=== PATIENT | male | born 1960 | race Caucasian/White ===

== ENCOUNTER 2020-05-11 18:07 | Inpatient (IN) | payer OTHER, SELFPAY ==
--- NOTE | 2020-05-11 18:09 | CT_ITS ---
We are attempting to reach an attending provider to discuss findings. An addendum with communication details will be sent when the communication is complete. STUDY: CT HEAD STROKE PROTOCOL W/O CONTRAST INJECTION REASON FOR EXAM: Male, 59 years old. Neuro deficit, acute, stroke suspected TECHNIQUE: Transaxial CT imaging of the brain was performed without administration of intravenous contrast material. Individualized dose optimization techniques were used for this CT. COMPARISON: No relevant priors. FINDINGS: Normal soft tissue structures. Normal calvarium. Normal size ventricles and extra-axial spaces for the patient''s age. Normal white matter tracts of the cerebral hemispheres. Normal basal ganglia and thalami. Normal brainstem. Normal cerebellum. There is no intracranial hemorrhage. There are no findings of an acute ischemic infarction. Mucosal thickening in the inferior frontal sinuses and anterior ethmoid sinuses. Mucosal thickening and retained fluid in the right maxillary sinus. Opacified left mastoid air cells, mastoid antrum and middle ear. CT/STROKE Brain/Head without Cont IMPRESSION: Negative for hemorrhage, hematoma or extra-axial fluid collection. Negative for demarcation of a major new nonhemorrhagic infarct zone or mass density. Incidental sinus and mastoid findings as described above. Electronically Signed: Shruthi Granger MD at 18:35 EST , Service support ,
--- NOTE | 2020-05-11 18:09 | EKG12_ITS ---
Test Reason : Blood Pressure : / mmHG Vent. Rate : 128 BPM Atrial Rate : 128 BPM P-R Int : 146 ms QRS Dur : 088 ms QT Int : 312 ms P-R-T Axes : 038 -22 026 degrees QTc Int : 455 ms Sinus tachycardia Possible Left atrial enlargement Poor R wave progression Borderline ECG Confirmed by ELVIA LARA, URIEL ([id number]), production editor JARROD JIANG ([id number]) on 05/16/2020 2:31:44 PM Referred By: ANCELMO Confirmed By:URIEL GAN MD
[2020-05-11 18:11] VITALS: BP 193/111; PULSE 130; RESP 27; TEMP 39.8; O2SAT 94; BMI 25.7
[2020-05-11 18:16] VITALS: BP 158/94; PULSE 129; RESP 26; TEMP 39.8; O2SAT 93; O2SAT 94
[2020-05-11 18:31] LABS: Absolute Lymphocyte Count 1.01 X10^3/uL (0.83-4.51); Absolute Neutrophil Count 22.3 X10^3/uL (2.0-7.7); Basophil# 0.07 X10^3/uL; Basophil% 0.3 % (0-1); Hematocrit 46.1 % (40-54); Hemoglobin 15.4 g/dL (13.0-16.5); Lymphocyte # 1.01 X10^3/ul (4.0); Lymphocyte % 4.1 % (19-41); Mean Corp Hgb Conc 33.4 g/dL (32-36); Mean Corpuscular Hgb 31.3 pg (27.0-32.0); Mean Corpuscular Volume 93.7 fL (80-94); Monocyte# 1.25 X10^3/uL; NRBC Flagged by Analyzer 0 % (0-5); Neutrophil # 22.33 X10^3/uL (2.7-7.7); Neutrophil % 89.6 % (47-70); POSITIVE DIFFERENTIAL YES; Platelet Count 300 K/mm3 (150-450); RBC Distribution Width CV 12.6 % (11.6-14.6); RBC Distribution Width SD 43.6 fl (35.1-43.9); Red Blood Count 4.92 M/mm3 (4.6-6.2); White Blood Count 24.9 K/mm3 (4.4-11.0)
[2020-05-11] MEDS: 0.9% Normal Saline 1,000 ML 999 ML IV ×3 (18:33→21:25)
--- NOTE | 2020-05-11 18:39 | CT_ITS ---
STUDY: CTA HEAD AND NECK WITH CONTRAST REASON FOR EXAM: Male, 59 years old. Altered mental status RADIATION DOSAGE (If Supplied By Facility): CTDIvol = ( 28.03 ) mGy, DLP = ( 757.07 ) mGycm TECHNIQUE: CT angiography was performed with a multi-detector CT scanner. Data acquisition was obtained from the skull base through the vertex following intravenous administration of IV 100mL Isovue-370. MIP images were reconstructed from the axial data set. Post-processing of the angiographic images was performed, with multiplanar reformation and 3D reconstruction. Individualized dose optimization techniques were used for this CT. COMPARISON: 07/08/2014 FINDINGS: Normal bilateral petrous carotid arteries. Normal right cavernous carotid artery with a normal supraclinoid bifurcation. Normal left cavernous carotid artery with a normal supraclinoid bifurcation. Normal right A1 segments of the anterior cerebral artery. Normal left A1 segments of the anterior cerebral artery. Normal intact anterior communicating artery (ACOM). Normal bilateral A2 segments of the anterior cerebral arteries. Normal right M1 and M2 segments of the middle cerebral arteries, with a normal M1 bifurcation. Normal left M1 and M2 segments of the middle cerebral arteries, with a normal M1 bifurcation. Normal right posterior communicating artery (PCOM). Normal left posterior communicating artery (PCOM). Normal bilateral vertebral arteries. Normal basilar artery with a normal basilar bifurcation. The visualized bilateral superior cerebellar (SCA) arteries are normal. Normal bilateral P1, P2 and visualized P3 segments of the posterior cerebral arteries. There is no demonstrated aneurysm of the [place] of [place]. There is no demonstrated abnormality of the visualized brain. AORTIC ARCH: Normal visualized aortic arch. Normal origins of the brachiocephalic, left common carotid, and left subclavian arteries. RIGHT CAROTID ARTERIES: Normal right common carotid artery (CCA). There is mild atherosclerotic plaque formation with minimal narrowing of the right carotid bulb. Normal origin of the right internal carotid (ICA) artery without a hemodynamically significant stenosis. Normal visualized cervical portion of the right internal carotid artery. Normal origin of the right external carotid artery (ECA). LEFT CAROTID ARTERIES: Normal left common carotid artery (CCA). Normal left common carotid bulb. Normal origin of the left internal carotid (ICA) artery without a hemodynamically significant stenosis. Normal visualized cervical portion of the left internal carotid artery. Normal origin of the left external carotid artery (ECA). VERTEBRAL ARTERIES: Normal bilateral vertebral arteries. CT/STROKE CTA Head AND Neck W/Con IMPRESSION: Minimal atherosclerosis of the right internal carotid artery otherwise within normal limits CTA Head and neck with contrast. N.B. : The above information has been verbally conveyed by Renae Farfan MD to Mely Fleming MD, on 05/11/2020 19:50:57 (ET). Electronically Signed: Renae Farfan MD at 19:53 EST Tel , Service support ,
[2020-05-11] MEDS: Acetaminophen 650 MG Suppository RECTAL (18:40)
[2020-05-11 18:41] LABS: International Normalized Ratio 1.2; Prothrombin Time (Protime)PT. 14.7 SECONDS (11.7-14.9)
[2020-05-11 18:42] LABS: Partial Thromboplast Time 26.1 Seconds (24.1-36.2)
[2020-05-11 18:43] LABS: Differential Indicated SCAN CRITERIA MET
[2020-05-11 18:50] LABS: Anion Gap 7 (5-15); BUN 11 mg/dL (7-18); BUN/Creat Ratio 11.8 RATIO (10-20); Calcium,Total 8.9 mg/dL (8.5-10.1); Chloride 104 mmol/L (98-107); Creatinine, Serum 0.93 mg/dL (0.70-1.30); EST Glomerular Filtration Rate 87 mL/min (>60); Est Glom Filt Rate - Afr Amer 106 mL/min (>60); Estimated Creatinine Clearance 91.55 ml/min; Glucose 106 mg/dL (74-106); Potassium 3.3 mmol/L (3.5-5.1); Sodium Level 136 mmol/L (136-145)
[2020-05-11 19:03] LABS: Differential Comment SCANNED
[2020-05-11 19:14] LABS: Bacteria 0 SEEN /hpf (None Seen); Mucous, Urine 0 SEEN /hpf (<or=2+); Squamous Epithelial Cells - UA 0 SEEN /hpf (0-5)
[2020-05-11 19:17] VITALS: BP 145/94; PULSE 116; RESP 25; TEMP 39.8; O2SAT 94
[2020-05-11 19:21] LABS: Color, Urine Yellow (Yellow); Glucose, Dipstick Normal (Normal); Ketone-Dipstick 50 mg/dl (Negative); Leukocyte Esterase-Dipstick Negative /ul (Negative); Nitrite-Dipstick Negative (Negative); Occult Blood-Urine 50 /ul (Negative); Protein-Dipstick 15 mg/dl (Negative); Urine Bilirubin Dipstick Negative (Negative); Urine Clarity Clear (Clear); Urine Urobilinogen 4 mg/dl (Normal)
--- NOTE | 2020-05-11 19:25 | RAD_ITS ---
STUDY: X-RAY CHEST REASON FOR EXAM: Male, 59 years old. Neuro deficit, acute, stroke suspected TECHNIQUE: 1 view COMPARISON: Prior chest radiograph of 07/08/2014 FINDINGS: Limited inspiration with minimal atelectasis at the right lung base. Otherwise negative for new consolidation or other infiltrates. Normal size heart. Normal mediastinum and brisa. Normal visualized pulmonary arteries. Normal visualized aortic arch and descending thoracic aorta. Normal visualized thoracic spine. Normal visualized ribs, clavicles, and shoulders. There is no demonstrated abnormality of the visualized soft tissue structures of the upper abdomen. RAD/Chest 1 View IMPRESSION: Limited inspiration. Mild atelectasis at the right lung base. Electronically Signed: Shruthi Granger MD at 20:18 EST , Service support ,
[2020-05-11 19:31] LABS: Lactic Acid 1.5 mmol/L (0.4-1.9)
[2020-05-11 19:35] LABS: Amphetamine Urine VISTA NEGATIVE (<1000 ng/mL); Barbiturate Urine VISTA NEGATIVE (< 200 ng/mL); Benzodiazepine Urine VISTA NEGATIVE (< 200 ng/mL); Cocaine Urine VISTA NEGATIVE (< 300 ng/mL); Ecstacy Urine VISTA NEGATIVE (< 500 ng/mL); Methadone Urine VISTA NEGATIVE (< 300 ng/mL); PCP Urine VISTA NEGATIVE (< 25 ng/mL); THC Urine VISTA NEGATIVE (< 50 ng/mL); Vista UDS pH Range 7
[2020-05-11 19:41] LABS: Red Blood Cells-Urine 5-10 SEEN /hpf (0-5); White Blood Cells 0-5 SEEN /hpf (0-5)
[2020-05-11 20:09] VITALS: BP 167/95; PULSE 121; RESP 26; TEMP 39.6; O2SAT 93
[2020-05-11] MEDS: fentaNYL 100 MCG/2 ML Ampul 50 MCG IV (21:04)
[2020-05-11 21:08] VITALS: BP 137/79; PULSE 109; RESP 24; TEMP 39.3; O2SAT 94
[2020-05-11 22:08] VITALS: BP 143/76; PULSE 89; RESP 26; TEMP 39.2; O2SAT 94
--- NOTE | 2020-05-11 22:31 | PCM.HP.STD ---
Problem List (1) Infectious encephalopathy Status: Acute (2) Hyperlipidemia Status: Chronic (3) Hypertension Status: Chronic (4) Mastoiditis Status: Acute History of Present Illness Date of Admission: 05/11/20 Chief Complaint: altered mental status The patient is a 59 year old M with a significant history of hypertension and alcoholism who was brought to the emergency department because of altered mental status. Reportedly patient was somnolent. Reportedly he was given Narcan by paramedics without any significant improvement. Patient's significant other alleged that patient reported to her a day ago that his left ear has been draining. Associated with his symptoms is fever and chills. On the same day of presentation patient went to the court and was seeking custody of his great grandchild. However the judgment was not in his favor. Prehospitalization stroke was considered. Emergent department doctor consulted telemetry neurologist and recommendations were made. History was taken for significant other who was at the bedside. Also, patient daughter was called to clarify CODE STATUS. Past Medical History Past Medical History (Chronic Problems): Chronic Problems Hyperlipidemia (Chronic) Hypertension (Chronic) Allergies No Known Allergies Allergy (Verified 11/26/14 19:01) Home Medications: Ambulatory Orders Medication Instructions Recorded Lisinopril [Zestril] 40 mg PO DAILY 07/09/14 Surgical History: appendectomy Smoking Status: Former smoker Alcohol: Heavy - *Family History Maternal History Items: Cancer Paternal History Items: Cancer Review of Systems Unable to obtain accurate/complete ROS d/t: Encephalopathy. ROS obtained from significant other is as in HPI VTE Information - Inpt Only VTE Present on Admission: No VTE Mechan Device Prophylaxis: SCD's VTE Pharm Prophylaxis ordered?: No Patient Problems: Active and Suspected Problems Infectious encephalopathy (Acute) Mastoiditis (Acute) - Physical Exam Vitals/I&O's: Vital Signs Temp Pulse Resp BP Pulse Ox 102.6 F H 89 26 H 143/76 H 94 05/11/20 22:08 05/11/20 22:08 05/11/20 22:08 05/11/20 22:08 05/11/20 22:08 Oxygen Delivery Method Room Air Weight: 86 kg Body Mass Index (BMI) 25.7 Finger Stick Blood Glucose 98 Intake and Output for Last 24 Hours 05/09/20 05/10/20 05/11/20 23:59 23:59 23:59 Intake Total 2049 Balance 2049 General: - - Obtunded HEENT: Atraumatic, - - Does not open eyes wide enough for examination. Sleeping on left side of head and difficult to examine left ear. Screaming on examination of left ear Neck: No Nodes, Trachea Midline Lungs: Clear to auscultation, Normal air movement Cardiovascular: Normal S1, Normal S2, Tachycardic Abdomen: Bowel Sounds Present, Soft, Non Tender Extremities: No edema, Capillary Refill Less than 3 Seconds Skin: No rashes Musculoskeletal: No Tenderness to Palpation of Joints or Extremities Neurological: - - Obtunded; does not follow commands moving. Psych/Mental Status: - - Obtunded Microbiology Past 72 Hours 05/11/20 19:15 Stool Stool Occult Blood (JILLIAN) - Final 05/11/20 18:40 Mucosa - Nasopharyngeal SARS-CoV-2 Antigen (Rapid) - Final Laboratory Results 05/11/20 18:05: Lactic Acid 1.5 05/11/20 18:15: WBC 24.9 H, RBC 4.92, Hgb 15.4, Hct 46.1, MCV 93.7, MCH 31.3, MCHC 33.4, RDW Std Deviation 43.6, RDW Coeff of Esteban 12.6, Plt Count 300, MPV 9.0, Immature Gran % (Auto) 1.000 H, Neut % (Auto) 89.6 H, Lymph % (Auto) 4.1 L, Banner % (Auto) 5.0, Eos % (Auto) 0.0, Baso % (Auto) 0.3, Absolute Neuts (auto) 22.3 H, Absolute Lymphs (auto) 1.01, Nucleated RBC % 0, Differential Comment SCANNED 05/11/20 18:15: PT 14.7, INR 1.2, APTT 26.1 05/11/20 18:15: Sodium 136, Potassium 3.3 L, Chloride 104, Carbon Dioxide 25.0, Anion Gap 7, BUN 11, Creatinine 0.93, Estim Creat Clear Calc 91.55, Est GFR (MDRD) Af Amer 106, Est GFR (MDRD) Non-Af 87, BUN/Creatinine Ratio 11.8, Glucose 106, Calcium 8.9, Troponin I < 0.015 05/11/20 18:15: Ethyl Alcohol 7.0 05/11/20 18:15: Total Bilirubin Pending, Direct Bilirubin Pending, AST Pending, ALT Pending, Alkaline Phosphatase Pending, Total Protein Pending, Albumin Pending 05/11/20 19:00: Urine Opiates Screen NEGATIVE, Urine Methadone Screen NEGATIVE, Ur Barbiturates Screen NEGATIVE, Ur Phencyclidine Scrn NEGATIVE, Ur Amphetamines Screen NEGATIVE, U Methamphetamin-MDMA NEGATIVE, U Benzodiazepines Scrn NEGATIVE, Urine Cocaine Screen NEGATIVE, U Cannabinoids Screen NEGATIVE, Ur Drug Screen Comment 05/11/20 19:00: Urine Color Yellow, Urine Clarity Clear, Urine pH 7.0, Ur Specific [place] 1.010, Urine Protein 15 H, Urine Glucose (UA) Normal, Urine Ketones 50 H, Urine Occult Blood 50 H, Urine Nitrite Negative, Urine Bilirubin Negative, Urine Urobilinogen 4 H, Ur Leukocyte Esterase Negative, Urine RBC 5-10 SEEN, Urine WBC 0-5 SEEN, Ur Squamous Epith Cells 0 SEEN, Urine Bacteria 0 SEEN, Urine Mucus 0 SEEN Current Medications Vancomycin HCl 2,000 mg/ (Sodium Chloride) 540 mls @ 250 mls/hr IV X1 ONE Stop: 05/11/20 22:39 Last Admin: 05/11/20 22:08 Dose: 250 mls/hr Documented by: Vancomycin IV Pharmacy to Dose (1 ea/ Sodium Chloride) 500 mls @ 250 mls/hr IV X1 PRN; Protocol PRN Reason: Rx to Dose Ceftriaxone Sodium 2 gm/ (Sodium Chloride) 50 mls @ 100 mls/hr IV Q12 OMAR Acyclovir Sodium 775 mg/ (Dextrose) 265.5 mls @ 265.5 mls/hr IV Q8 OMAR Labetalol HCl (Labetalol 100 Mg/20 Ml Vial) 10 mg IV Q6 PRN PRN Reason: SBP > 160; OR DBP > 120 Methylprednisolone (Methylprednisolone 40 Mg/Ml Vial) 40 mg IV DAILY [facility] Assessment/Plan All Active Problems Infectious encephalopathy (Acute) Mastoiditis (Acute) The patient is a 59 year old M with a significant history of hypertension and alcoholism who was brought to the emergency department because of altered mental status; fever; chills; and with draining of his left ear. Sepsis secondary to infectious encephalopathy Brain CT findings of mucosal thickening in the inferior frontal sinuses and anterior ethmoid sinuses. Mucosal thickening retained fluid in the right maxillary sinuses. Opacified left mastoid air cells, mastoid antrum and body ear. Head and neck CT was unrevealing for encephalitis. Check MRI Because patient required 6 people before a Rutledge catheter could be placed; emergent department doctor was unable to attempt a lumbar [uncture as patient became agitated Patient was started on vancomycin and trazodone at emergency department. Discussed emergent department doctor to start patient on acyclovir. Vancomycin and ceftriaxone as well as acyclovir ordered for inpatient. Solu-Medrol ordered. Check ammonia level. Will admit patient to intensive care unit and will consult upholstery handler and infectious disease expert. Acute mastoiditis Brain CT as above. Patient's was agitated and would not allow her left ear to be examined. Limited examination showed absolute on speculum. Aside vancomycin and ceftriaxone would add Levaquin for Pseudomonas coverage. Alcoholism Patient's girlfriend who was at bedside said patient is a heavy drinker but has been try to cut down. We will start patient on thiamine and folic acid. If patient becomes more alert consider Ativan for CIWA protocol. Hematemesis Nurse at emergent department reported a copious hematemesis that has since stopped. Discussed emergent department doctor to get a liver function test. Concern about variceal bleed in the setting of alcoholism. CMP in the a.m. ordered. Protonix 40 mg IV twice daily ordered. Abnormal abdomen and pelvis CT CT with moderate right sided renal cyst with benign features. Also complex right parapelvic cyst measuring 3.3 x 2 cm versus renal artery aneurysm in the right renal helium. Ultrasound was recommended. Consider further imaging when patient is more stable. DVT prophylaxis No chemical chemoprophylaxis because of hematemesis. SCD ordered Inpatient E&M: 73529 Init Hosp L3
[2020-05-11 22:48] LABS: AST(SGOT) 16 U/L (15-37); Alanine Aminotransfer ALT/SGPT 17 U/L (16-61); Albumin, Serum 3.7 g/dL (3.2-5.0); Alkaline Phosphatase 99 U/L (45-117); Bilirubin, Direct 0.21 mg/dL (0.00-0.30); Globulin 4.6 g/dL (2.2-4.2); Protein, Total 8.3 g/dL (6.4-8.2)
--- NOTE | 2020-05-11 23:24 | CT_ITS ---
STUDY: CT ABDOMEN AND PELVIS WITHOUT CONTRAST REASON FOR EXAM: Male, 59 years old. Fever RADIATION DOSAGE (If Supplied By Facility): CTDIvol = ( 14.06 ) mGy, DLP = ( 839.82 ) mGycm TECHNIQUE: Transaxial images were obtained from the dome of the diaphragm to the symphysis pubis without oral contrast, and without intravenous contrast. Sagittal and coronal images were reconstructed. Individualized dose optimization techniques were used for this CT. COMPARISON: CT angiogram chest July 08, 2014 FINDINGS: There is lower lobe atelectasis motion artifact in the lung bases. There is also artifact from the patient''s arms down by his side. There is mild cardiac enlargement. There is a thick-walled appearance of the distal esophagus. Normal liver. Normal gallbladder and extrahepatic biliary system. Normal spleen. Normal pancreas. Minimal thickening of the right-sided adrenal gland compared to the left. There are multiple cysts in the right kidney. The study is in a delayed phase at the time of this study. This may be contrast remaining from a CT angiogram of the head May 11, 2020. There is a right-sided cyst measuring 4.0 x 4.0 cm with Hounsfield units in the range of simple fluid. There is a larger lower pole cyst measuring 11.0 x 7.5 cm. Within the right renal pelvis there is a visualized focal mass which may be peripherally calcified and/or demonstrate peripheral enhancement measuring 3.3 x 2.2 cm. This appears to closely abut the hilum. Hounsfield units are complex. Represent there is left greater than right perinephric stranding. Contrast is seen exiting the left kidney without hydronephrosis. There is a small hiatal hernia. There mildly distended loops of small bowel. There is moderate stool in the colon. There are a few diverticula present without diverticulitis. There is non-visualization of the appendix. Normal abdominal aorta. Normal inferior vena cava. Normal retroperitoneum. The bladder wall is thickened and decompressed around a Rutledge catheter. Normal visualized prostate gland. Normal abdominal wall. There are diffuse degenerative changes of the visualized lumbar spine. CT/Abdomen/Pelvis without Cont IMPRESSION: Moderate size right-sided renal cysts with benign features. There is either a complex right peripelvic cyst measuring 3.3 x 2.2 cm versus renal artery aneurysm within the right renal hilum. Recommend follow-up ultrasound with color Doppler for further evaluation. And/or When appropriate arterial phase contrast CT with IV contrast may be helpful for further clarification. No evidence of hydronephrosis Nonspecific perinephric stranding. Wall thickening of the bladder suspicious for cystitis. There is a Rutledge catheter in place. Nonspecific bowel gas pattern with mild distention of the small bowel suggestive of ileus. There is substantial artifact within the lung bases there is lower lobe atelectasis. Electronically Signed: Smiley Joshua MD at 0:36 EST Tel , Service support ,
--- NOTE | 2020-05-11 23:36 | ED.DCSUM_ITS ---
- ER Visit Summary Date of Service: 05/11/20 Chief Complaint: Altered mental status History of Present Illness: The patient is a 59 M presenting per EMS with altered mental status. Per EMS and girlfriend's report patient went to court earlier this morning. His girlfriend states the outcome was not positive for the patient. He was upset and anxious following the court proceedings. He went home to take a nap. Girlfriend states they were unable to wake him up. Last known normal was 12:30 PM. Around 5 PM they were unable to wake him up. Girlfriend was concerned about possible overdose. Patient takes lisinopril. He had no other medications available to him at that time. EMS gave him Narcan on scene with no change in his mental status. He is awake but not following commands or speaking. He had Covid in February and recovered. He has history of previous stroke. EMS called prehospital stroke team. Physical Examination: Blood pressure 145/94, temperature 103.7, heart rate 116, respiratory 25. Pulse ox 94% on room air. HEENT left otorrhea, unable to visualize TM Neck is supple. Lungs are clear and equal bilaterally. Heart is regular tachycardic Abdomen is soft nontender nondistended. No guarding or rebound Extremities are unremarkable. Skin is warm and dry. No rash Patient awakens to voice. He is alert and oriented x1. He does not follow commands. Remainder of exam is unremarkable. Emergency Department Course and Treatment: On arrival to the ED patient was taken directly to CT scan for possible stroke. He was found to have a temperature of 103.7. He is able to say his name but does not follow commands. [facility] neurology was consulted. They recommend CTA head and neck to rule out basilar artery clot. CT head shows no acute bleed. Mucosal thickening in the inferior frontal sinuses and anterior ethmoid sinuses. Mucosal thickening and retained fluid in the right maxillary sinus. Opacified left mastoid air cells, mastoid antrum and middle ear. CTA head and neck shows minimal atherosclerosis of the right internal carotid artery otherwise within normal limits CTA Head and neck with contrast. Immediately after CT scan patient had an episode of dark emesis. He had no further vomiting while in the emergency department. Stool is guaiac negative. He was given rectal Tylenol. His temperature remains 102. Cooling blanket was applied. He was given 3 L normal saline IV. Blood cultures were sent. Covid is negative. Chest x-ray shows atelectasis right base. CBC shows white count 24.9. Chemistries show potassium 3.3. Liver enzymes are unremarkable. INR is 1.2. Urinalysis unremarkable. Troponin is negative. Lactic acid 1.5. Tox and alcohol are negative. EKG is sinus tachycardia rate of 128 with no acute ischemic changes. Patient awakens to voice and will say his name. He otherwise does not follow commands. He was given Rocephin, vancomycin, acyclovir for possible encephalitis versus meningitis. When Rutledge was placed patient was combative and required multiple staff members for Rutledge placement. Attempted LP with multiple staff members attempting to hold the patient. Patient is too combative for this at this time. He was given Ativan IV and is unable to tolerate LP. CT abdomen pelvis was obtained and is pending. Discussed with hospitalist for admission to the ICU. Disposition: Admission Impression: Sepsis unknown source, encephalitis This note was generated with [employer] dictation software. It may contain incorrect words, spelling, and punctuation that were not noted in review of the chart prior to signing
[2020-05-11] MEDS: LORazepam 2 MG/ML Syringe 1 MG IV (23:46)
--- NOTE | 2020-05-11 23:58 | PCM.RX.CS ---
Consult Pharmacy has been consulted to manage selected antiobiotic: Vancomycin Type of Consult: New start Suspected Infection: Sepsis Prior Doses of Antibiotics Received/Current Regimen: Medications Vancomycin HCl 1,750 mg/ (Sodium Chloride) 535 mls @ 250 mls/hr IV Q12H OMAR Discontinued Medications Vancomycin HCl 2,000 mg/ (Sodium Chloride) 540 mls @ 250 mls/hr IV X1 ONE Stop: 05/11/20 22:39 Last Admin: 05/11/20 22:08 Dose: 250 mls/hr Labs: Sodium 136 mmol/L (136-145) 05/11/20 18:15 Potassium 3.3 mmol/L (3.5-5.1) L 05/11/20 18:15 Chloride 104 mmol/L (98-107) 05/11/20 18:15 Carbon Dioxide 25.0 mmol/L (21.0-32.0) 05/11/20 18:15 Anion Gap 7 (5-15) 05/11/20 18:15 BUN 11 mg/dL (7-18) 05/11/20 18:15 Creatinine 0.93 mg/dL (0.70-1.30) 05/11/20 18:15 Est GFR (MDRD) Af Amer 106 mL/min (>60) 05/11/20 18:15 Est GFR (MDRD) Non-Af 87 mL/min (>60) 05/11/20 18:15 BUN/Creatinine Ratio 11.8 RATIO (10-20) 05/11/20 18:15 Glucose 106 mg/dL (74-106) 05/11/20 18:15 Microbiology: Microbiology 05/11/20 19:15 Stool Stool Occult Blood (JILLIAN) - Final 05/11/20 18:40 Mucosa - Nasopharyngeal SARS-CoV-2 Antigen (Rapid) - Final Weight used for dosin kg Estimated Creatinine Clearance: 91.6 Goal Trough: 15-20 mcg/mL Pharmacy Plan for Drug Dosing: Pharmacy Service will continue to monitor and adjust dosing as required. Follow-Up Labs: Trough Vancomycin Labs to be done on [date and time ordered]: 05/13/20 @0930
[2020-05-12] VITALS (34 sets, daily range): BP systolic 106–150; BP diastolic 59–96; PULSE 68–107; RESP 17–30; TEMP 37.4–39.2; O2SAT 92–99; BMI 25.1
--- NOTE | 2020-05-12 01:51 | MRI_ITS ---
STUDY: MRI BRAIN WITHOUT CONTRAST REASON FOR EXAM: Male, 59 years old. encephalitis TECHNIQUE: Standardized multiplanar fat and water weighted pulse sequences were obtained. COMPARISON: CT 05/11/2020, MRI 07/09/2014 FINDINGS: There is mild cerebral atrophy with widening of the extra-axial spaces and ventricular dilatation. Normal white matter tracts of the supratentorial brain. There is no evidence for recent intracranial ischemia or other cause of cytotoxic edema on diffusion weighted imaging (DWI). Normal T2* images of the brain without demonstrated susceptibility artifact. There is no demonstrated hemosiderin stain. Normal bilateral basal ganglia. Normal thalami. There is no extra-axial fluid accumulation. Normal flow voids within the major intracranial circulation suggesting patency by spin echo criteria. Normal sella turcica, pituitary gland, infundibular stalk, optic chiasm and hypothalamus. Normal tectal plate and pineal gland. Normal midbrain, alfonso and medulla. Normal cerebellum. Normal basal cisterns. There is severe chronic otomastoiditis of the left temporal bone. Normal bilateral internal auditory canals. No demonstrated orbital abnormality, within the constraints of a routine brain study. There is mucoperiosteal inflammatory disease of the paranasal sinuses consistent with moderate chronic sinusitis. Normal calvarium and skull base. Normal visualized soft tissue structures. Normal visualized upper cervical spine. MRI/Brain without Contrast IMPRESSION: Involutional changes of the brain, as described above. Acute on chronic sinusitis and left mastoiditis. Electronically Signed: Yifan Corbett MD at 12:11 EST Tel , Service support ,
[2020-05-12] MEDS: 0.9% Normal Saline 1,000 ML 100 ML IV ×3 (02:19→19:41)
[2020-05-12] MEDS: levoFLOXacin IV 750 MG/150 ML BAG 100 MG IV (03:01)
[2020-05-12 03:09] LABS: ALB/GLOB Ratio 0.7 RATIO (0.9-2.4); AST(SGOT) 25 U/L (15-37); Alanine Aminotransfer ALT/SGPT 24 U/L (16-61); Albumin, Serum 2.9 g/dL (3.2-5.0); Alkaline Phosphatase 77 U/L (45-117); Anion Gap 9 (5-15); BUN 9 mg/dL (7-18); BUN/Creat Ratio 9.2 RATIO (10-20); Calcium,Total 7.7 mg/dL (8.5-10.1); Chloride 104 mmol/L (98-107); Creatinine, Serum 0.98 mg/dL (0.70-1.30); EST Glomerular Filtration Rate 82 mL/min (>60); Est Glom Filt Rate - Afr Amer 100 mL/min (>60); Estimated Creatinine Clearance 86.88 ml/min; Globulin 4.3 g/dL (2.2-4.2); Glucose 151 mg/dL (74-106); Potassium 3.5 mmol/L (3.5-5.1); Protein, Total 7.2 g/dL (6.4-8.2); Sodium Level 136 mmol/L (136-145)
[2020-05-12 03:19] LABS: Absolute Lymphocyte Count 1.15 X10^3/uL (0.83-4.51); Basophil# 0.16 X10^3/uL; Basophil% 0.4 % (0-1); Hematocrit 40.3 % (40-54); Hemoglobin 13.1 g/dL (13.0-16.5); Lymphocyte # 1.15 X10^3/ul (4.0); Lymphocyte % 3.1 % (19-41); Mean Corp Hgb Conc 32.5 g/dL (32-36); Mean Corpuscular Hgb 31.9 pg (27.0-32.0); Mean Corpuscular Volume 98.1 fL (80-94); Mean Platelet Vol. 8.8 fl (6.2-12.0); Monocyte# 1.94 X10^3/uL; Monocyte% 5.3 % (0-10); NRBC Flagged by Analyzer 0 % (0-5); Neutrophil # 32.95 X10^3/uL (2.7-7.7); Neutrophil % 89.9 % (47-70); POSITIVE COUNT YES; POSITIVE DIFFERENTIAL YES; Platelet Count 228 K/mm3 (150-450); RBC Distribution Width CV 12.7 % (11.6-14.6); RBC Distribution Width SD 45.7 fl (35.1-43.9); Red Blood Count 4.11 M/mm3 (4.6-6.2)
[2020-05-12 03:22] LABS: Differential Indicated SCAN CRITERIA MET
[2020-05-12 03:23] LABS: White Blood Count 36.7 K/mm3 (4.4-11.0)
[2020-05-12 03:51] LABS: Differential Comment SCANNED
[2020-05-12] MEDS: Acetaminophen 650 MG Suppository RC ×3 (04:46→22:42)
[2020-05-12] MEDS: Ondansetron 4 MG/2 ML Vial IV (05:42)
[2020-05-12] MEDS: 0.9% Saline Lock 10 ML Syringe IV (05:43)
--- NOTE | 2020-05-12 07:19 | PN_ITS ---
Patient Problems: Active and Suspected Problems Infectious encephalopathy (Acute) Mastoiditis (Acute) Bacteremia (Acute) Reason for Visit: Follow-up on acute infectious encephalopathy/bacterial meningitis Subjective: Patient was seen and examined. Remains febrile, T-max is 103.3F. He complains of feeling unwell, admits to headache, neck pain. Reported said he was depressed. Objective: Physical exam: General: Alert, oriented x3, looks unwell, not pale, no jaundice HEENT: Atraumatic Neck: No Nodes, Trachea Midline Lungs: Clear to auscultation, Normal air movement Cardiovascular: Normal S1, Normal S2, Tachycardic Abdomen: Bowel Sounds Present, Soft, Non Tender Extremities: No edema, Capillary Refill Less than 3 Seconds Skin: No rashes Musculoskeletal: Tenderness on eliciting a Kernig and Brudzinski sign Neurological: not cooperative Psych/Mental Status: Flat affect Vitals/I&O's: Vital Signs Temp Pulse Resp BP Pulse Ox 100.6 F H 71 17 131/80 H 99 05/12/20 07:00 05/12/20 07:00 05/12/20 07:00 05/12/20 07:00 05/12/20 07:00 Oxygen Flow Rate (L/min) 2 Oxygen Delivery Method Nasal Cannula Weight: 84.096 kg Body Mass Index (BMI) 25.1 Finger Stick Blood Glucose 98 Intake and Output for Last 24 Hours 05/10/20 05/11/20 05/12/20 23:59 23:59 23:59 Intake Total 3050 / 3050 1819.87 / 1819.87 Output Total 500 / 500 Balance 3050 / 3050 1319.87 / 1319.87 Microbiology Past 72 Hours 05/11/20 18:05 Blood Culture (Wb) - Anticubital Right Blood Culture - Preliminary 05/11/20 19:15 Stool Stool Occult Blood (JILLIAN) - Final 05/11/20 18:40 Mucosa - Nasopharyngeal SARS-CoV-2 Antigen (Rapid) - Final Laboratory Results 05/11/20 18:05: Lactic Acid 1.5 05/11/20 18:15: WBC 24.9 H, RBC 4.92, Hgb 15.4, Hct 46.1, MCV 93.7, MCH 31.3, MCHC 33.4, RDW Std Deviation 43.6, RDW Coeff of Esteban 12.6, Plt Count 300, MPV 9.0, Immature Gran % (Auto) 1.000 H, Neut % (Auto) 89.6 H, Lymph % (Auto) 4.1 L, [place] % (Auto) 5.0, Eos % (Auto) 0.0, Baso % (Auto) 0.3, Absolute Neuts (auto) 22.3 H, Absolute Lymphs (auto) 1.01, Nucleated RBC % 0, Differential Comment SCANNED 05/11/20 18:15: PT 14.7, INR 1.2, APTT 26.1 05/11/20 18:15: Sodium 136, Potassium 3.3 L, Chloride 104, Carbon Dioxide 25.0, Anion Gap 7, BUN 11, Creatinine 0.93, Estim Creat Clear Calc 91.55, Est GFR (MDRD) Af Amer 106, Est GFR (MDRD) Non-Af 87, BUN/Creatinine Ratio 11.8, Glucose 106, Calcium 8.9, Troponin I < 0.015 05/11/20 18:15: Ethyl Alcohol 7.0 05/11/20 18:15: Total Bilirubin 0.90, Direct Bilirubin 0.21, AST 16, ALT 17, Alkaline Phosphatase 99, Total Protein 8.3 H, Albumin 3.7, Globulin 4.6 H 05/11/20 19:00: Urine Opiates Screen NEGATIVE, Urine Methadone Screen NEGATIVE, Ur Barbiturates Screen NEGATIVE, Ur Phencyclidine Scrn NEGATIVE, Ur Amphetamines Screen NEGATIVE, U Methamphetamin-MDMA NEGATIVE, U Benzodiazepines Scrn NEGATIVE, Urine Cocaine Screen NEGATIVE, U Cannabinoids Screen NEGATIVE, Ur Drug Screen Comment 05/11/20 19:00: Urine Color Yellow, Urine Clarity Clear, Urine pH 7.0, Ur Specific [place] 1.010, Urine Protein 15 H, Urine Glucose (UA) Normal, Urine Ketones 50 H, Urine Occult Blood 50 H, Urine Nitrite Negative, Urine Bilirubin Negative, Urine Urobilinogen 4 H, Ur Leukocyte Esterase Negative, Urine RBC 5-10 SEEN, Urine WBC 0-5 SEEN, Ur Squamous Epith Cells 0 SEEN, Urine Bacteria 0 SEEN, Urine Mucus 0 SEEN 05/12/20 02:37: Ammonia 27.0 05/12/20 02:37: WBC Cancelled, Corrected WBC Cancelled, RBC Cancelled, Hgb Cancelled, Hct Cancelled, MCV Cancelled, MCH Cancelled, MCHC Cancelled, RDW Std Deviation Cancelled, RDW Coeff of Esteban Cancelled, Plt Count Cancelled, MPV Cancelled, Immature Gran % (Auto) Cancelled, Neut % (Auto) Cancelled, Lymph % (Auto) Cancelled, [place] % (Auto) Cancelled, Eos % (Auto) Cancelled, Baso % (Auto) Cancelled, Absolute Neuts (auto) Cancelled, Absolute Lymphs (auto) Cancelled, Total Counted Cancelled, Neutrophils % (Manual) Cancelled, Band Neutrophils % Cancelled, Lymphocytes % (Manual) Cancelled, Monocytes % (Manual) Cancelled, Eosinophils % (Manual) Cancelled, Basophils % (Manual) Cancelled, Metamyelocytes % Cancelled, Myelocytes % Cancelled, Promyelocytes % Cancelled, Blast Cells % Cancelled, Plasma Cell % (Manual) Cancelled, Other Cells % Cancelled, Nucleated RBC % Cancelled, Nucleated RBCs/100 WBC Cancelled, Differential Comment Cancelled, Diff Path Review Cancelled, Hypersegmented Neuts Cancelled, Atypical Lymphocytes Cancelled, Reactive Lymphocytes Cancelled, Smudge Cells Cancelled, Toxic Granulation Cancelled, Toxic Vacuolation Cancelled, Dohle Bodies Cancelled, Stacey Rods Cancelled, Platelet Estimate Cancelled, Plt Morphology Co mment Cancelled, RBC Morphology Cancelled, Polychromasia Cancelled, Hypochromasia Cancelled, Poikilocytosis Cancelled, Basophilic Stippling Cancelled, Anisocytosis Cancelled, Microcytosis Cancelled, Macrocytosis Cancelled, Spherocytes Cancelled, Sickle Cells Cancelled, Target Cells Cancelled, Tear Drop Cells Cancelled, Ovalocytes Cancelled, Stomatocytes Cancelled, Swain-[place] Bodies Cancelled, Lexy Cells Cancelled, Bite Cells Cancelled, Crenated Cell Cancelled, Acanthocytes (Spur) Cancelled, Rouleaux Cancelled, Schistocytes Cancelled 05/12/20 02:37: Sodium 136, Potassium 3.5, Chloride 104, Carbon Dioxide 23.0, Anion Gap 9, BUN 9, Creatinine 0.98, Estim Creat Clear Calc 86.88, Est GFR (MDRD) Af Amer 100, Est GFR (MDRD) Non-Af 82, BUN/Creatinine Ratio 9.2 L, Glucose 151 H, Calcium 7.7 L, Total Bilirubin 0.70, AST 25, ALT 24, Alkaline Phosphatase 77, Total Protein 7.2, Albumin 2.9 L, Globulin 4.3 H, Albumin/Globulin Ratio 0.7 L 05/12/20 03:15: WBC 36.7 H*, RBC 4.11 L, Hgb 13.1, Hct 40.3, MCV 98.1 H, MCH 31.9, MCHC 32.5, RDW Std Deviation 45.7 H, RDW Coeff of Esteban 12.7, Plt Count 228, MPV 8.8, Immature Gran % (Auto) 1.300 H, Neut % (Auto) 89.9 H, Lymph % (Auto) 3.1 L, [place] % (Auto) 5.3, Eos % (Auto) 0.0, Baso % (Auto) 0.4, Absolute Neuts (auto) 33.0 H, Absolute Lymphs (auto) 1.15, Nucleated RBC % 0, Differential Comment SCANNED, Diff Path Review May foll Current Medications Acetaminophen (Acetaminophen 650 Mg Suppository) 650 mg RC Q4H PRN PRN PRN Reason: Pain Score 1-10/Temp > 100.7 F Last Admin: 05/12/20 04:46 Dose: 650 mg Documented by: Vancomycin IV Pharmacy to Dose (1 ea/ Sodium Chloride) 500 mls @ 250 mls/hr IV PRN PRN; Protocol PRN Reason: Rx to Dose Ceftriaxone Sodium 2 gm/ (Sodium Chloride) 50 mls @ 100 mls/hr IV Q12 [facility] Acyclovir Sodium 775 mg/ (Dextrose) 265.5 mls @ 265.5 mls/hr IV Q8 [facility] Last Infusion: 05/12/20 07:11 Dose: Infused Documented by: Vancomycin HCl 1,750 mg/ (Sodium Chloride) 535 mls @ 250 mls/hr IV Q12H [facility] Sodium Chloride () 250 mls @ 15 mls/hr IV .[id number] PRN PRN Reason: Saline Flush Sodium Chloride () 250 mls @ 15 mls/hr IV .[id number] PRN PRN Reason: Additional IVPB Infusion Sodium Chloride () 1,000 mls @ 100 mls/hr IV .Q10H [facility] Last Infusion: 05/12/20 07:11 Dose: 100 mls/hr Documented by: Levofloxacin (Levaquin Iv) 750 mg in 150 mls @ 100 mls/hr IV Q24@2200 [facility] Last Infusion: 05/12/20 04:31 Dose: Infused Documented by: Pantoprazole Sodium 40 mg/ (Sodium Chloride) 110 mls @ 330 mls/hr IV Q12 [facility] Last Infusion: 05/12/20 03:00 Dose: Infused Documented by: Thiamine HCl 200 mg/ Sodium (Chloride) 52 mls @ 200 mls/hr IV DAILY [facility] Last Infusion: 05/12/20 03:17 Dose: Infused Documented by: Folic Acid 1 mg/ Sodium (Chloride) 50.2 mls @ 200 mls/hr IV DAILY [facility] Last Infusion: 05/12/20 02:59 Dose: Infused Documented by: Labetalol HCl (Labetalol (Prefilled) 20 Mg/4 Ml) 10 mg IV Q6H PRN PRN PRN Reason: SBP > 160; OR DBP > 120 Methylprednisolone (Methylprednisolone 40 Mg/Ml Vial) 40 mg IV DAILY [facility] Last Admin: 05/12/20 02:19 Dose: 40 mg Documented by: Ondansetron HCl (Ondansetron 4 Mg/2 Ml Vial) 4 mg IV Q8H PRN PRN PRN Reason: NAUSEA/VOMITING Last Admin: 05/12/20 05:42 Dose: 4 mg Documented by: Sodium Chloride (0.9% Saline Lock 10 Ml Syringe) 10 - 40 ml IV UD PRN PRN Reason: SALINE FLUSH Last Admin: 05/12/20 05:43 Dose: 10 ml Documented by: STROKE Vital Signs/Narrative: Vital Signs Temp Pulse Resp BP Pulse Ox 05/12/20 07:00 100.6 F H 71 17 131/80 H 99 05/12/20 06:00 101.9 F H 76 23 H 130/70 H 93 05/12/20 05:00 102.1 F H 74 23 H 128/75 H 94 05/12/20 04:15 80 05/12/20 04:00 102.0 F H 85 24 H 123/73 H 96 05/12/20 03:30 102.4 F H 84 25 H 129/70 H 95 Medical Necessity - Tobacco Use Smoking Status: Former smoker Assessment/Plan All Active Problems Infectious encephalopathy (Acute) Mastoiditis (Acute) Bacteremia (Acute) 1. Sepsis secondary to probable bacterial meningitis/probable pyelonephritis, generally looks unwell WBC worsening, blood cultures growing strep pneumo. Patient refused spinal tap; MRI of the brain is pending Urinalysis not suggestive of UTI; CT of the abdomen and pelvis suggestive of cystitis/perinephric stranding Infectious disease consulted; new IV vancomycin, ceftriaxone and Solu-Medrol. Acyclovir has been discontinued Follow-up on blood and urine cultures 2. Strep pneumo bacteremia, suspected otitis media Cultures from the ear taken by ID Continue on IV ceftriaxone, vancomycin and Solu-Medrol 3. Acute infectious encephalopathy likely related to the above Continue to monitor 4. Hypokalemia, replaced, recheck in a.m. 5. Chronic alcohol use, will continue to monitor for withdrawal Continue Thiamine and folic acid 6. Depression, recent social issues with guardianship of granddaughter Hold off on start of any antidepressants for a day or 2 until the acute events are stable 7. DVT PPx- Heparin SC -?hold off for now, in anticipation of some procedure or work-up Inpatient E&M: [id number] [facility] L3
--- NOTE | 2020-05-12 08:29 | CON.PCM_ITS ---
Problem List (1) Infectious encephalopathy Status: Acute (2) Mastoiditis Status: Acute Qualifiers: Laterality: left Qualified Code(s): H70.92 - Unspecified mastoiditis, left ear (3) Hyperlipidemia Status: Chronic (4) Hypertension Status: Chronic Reason for Consult Date of Consultation: 05/12/20 Reason for Consultation: Severe sepsis History of Present Illness: The patient is a 59 year old M, with past medical history listed below, who presented to [facility] on 05/11/2020 secondary to altered mental status. Patient reportedly had been in court earlier in the morning and received a less than desirable ruling. Patient was upset and anxious and went home to take a nap. However, later in the day the girlfriend was unable to wake him up. Patient was last known normal at 12:30 PM, but attempts to arouse him were at about approximately 5 PM. There was some concern about possible overdose. Patient does take lisinopril as a chronic medication, but this was not close to him. EMS had given Narcan with no change in mental status. Patient reportedly had had a beer or 2. Patient did have a history of previous stroke, so on transfer to the ER, a prehospital stroke team was activated. On arrival to the ER, patient was noted to be febrile at 103.7 ?F, tachycardic at 116 bpm, but saturating well on room air. Patient did have left otorrhea. Patient was taken to CT for possible stroke. CTA of the head neck was completed and did not show any acute bleed or thrombosis. Mucosal thickening was noted in the frontal and anterior ethmoid sinuses, along with opacified left mastoid air cells. While in the ER, patient reportedly had a dark emesis with no further vomiting in the emergency department. Patient was given rectal Tylenol, volume resuscitation and antibiotics. Laboratory data showed a significant leuko cytosis, hypokalemia and a lactic of 1.5. EKG showed only sinus rhythm with tachycardia. When Rutledge was placed, patient reportedly became combative. Attempts at LP were not successful despite Ativan. Since being in the intensive care unit, patient has remained febrile and chilling. Patient is not able to provide much additional information. Patient will open his eyes to voice and follows some minimal commands. Patient is reporting neck soreness and left ear pain. Patient is not reporting any dyspnea. Patient did not answer when asked about potential overdose. Patient is not able to provide any information on duration of symptoms. Microbiology has called and subsequently is reporting gram-positive cocci in blood cultures in less than 24 hours. Unable to obtain a review of systems reliably. There is some discussion the patient used to have issues with alcoholism. Patient reportedly has had upper GI bleeds previously, but it is unclear if this is related to variceal issues. Past Medical History Past Medical History (Chronic Problems): Chronic Problems Hyperlipidemia (Chronic) Hypertension (Chronic) Allergies No Known Allergies Allergy (Verified 11/26/14 19:01) Home Medications: Ambulatory Orders Medication Instructions Recorded Lisinopril [Zestril] 40 mg PO DAILY 07/09/14 Surgical History: appendectomy Smoking Status: Former smoker Alcohol: Heavy - *Family History Maternal History Items: Cancer Paternal History Items: Cancer Review of Systems Unable to obtain accurate/complete ROS d/t: Encephalopathy Patient Problems: Active and Suspected Problems Infectious encephalopathy (Acute) Mastoiditis (Acute) Objective: Imaging was personally reviewed. Agree with formal interpretation. Patient did have an echocardiogram in 2014 showing an EF of 65% with no intra- atrial shunt. No valvular abnormalities were noted. Patient has never had a pulmonary function test that is available for review. - Physical Exam Vitals/I&O's: Vital Signs Temp Pulse Resp BP Pulse Ox 38.1 C H 105 H 24 H 147/96 H 95 05/12/20 07:00 05/12/20 08:00 05/12/20 08:00 05/12/20 08:00 05/12/20 08:00 Oxygen Flow Rate (L/min) 2 Oxygen Delivery Method Room Air Weight: 84.096 kg Body Mass Index (BMI) 25.1 Finger Stick Blood Glucose 98 Intake and Output for Last 24 Hours 05/10/20 05/11/20 05/12/20 23:59 23:59 23:59 Intake Total 3050 / 3050 1819.87 / 1819.87 Output Total 500 / 500 Balance 3050 / 3050 1319.87 / 1319.87 General: Confused, Disoriented, Non-Cooperative, - - Active chills noted. Appears older than stated age. HEENT: Atraumatic, PERRLA, EOMI, Normocephalic, - - Left periorbital edema. No conjunctival icterus or injection noted. Pupils are reactive. No nystagmus appreciated. Oral: Moist Mucosa, No Gingival or Mucosal Lesions/ Ulcerations Neck: Supple, No JVD, No Nodes, Trachea Midline Lungs: Clear to auscultation, Normal air movement, No rhonchi, No wheeze, No rales Cardiovascular: Normal S1, Normal S2, No murmurs, No rub noted, No Gallop, Tachycardic Abdomen: Bowel Sounds Present, Soft, Non Tender, Non-Distended Extremities: No clubbing, No cyanosis, No edema, Capillary Refill Less than 3 Seconds Skin: No rashes - No petechial rash noted, No breakdown Musculoskeletal: No Tenderness to Palpation of Joints or Extremities Lymphatic: Cervical Adenopathy Neurological: - - Not cooperative with exam. Moves all extremities. Actively curling spine, but resists manipulation. Sensation appears to be intact. Psych/Mental Status: Impulsive, Restless Microbiology Past 72 Hours 05/11/20 20:56 Blood Culture (Wb) - Left Hand Blood Culture - Preliminary 05/11/20 18:05 Blood Culture (Wb) - Anticubital Right Blood Culture - Preliminary 05/11/20 19:15 Stool Stool Occult Blood (JILLIAN) - Final 05/11/20 18:40 Mucosa - Nasopharyngeal SARS-CoV-2 Antigen (Rapid) - Final Laboratory Results 05/11/20 18:05: Lactic Acid 1.5 05/11/20 18:15: WBC 24.9 H, RBC 4.92, Hgb 15.4, Hct 46.1, MCV 93.7, MCH 31.3, MCHC 33.4, RDW Std Deviation 43.6, RDW Coeff of Esteban 12.6, Plt Count 300, MPV 9.0, Immature Gran % (Auto) 1.000 H, Neut % (Auto) 89.6 H, Lymph % (Auto) 4.1 L, [place] % (Auto) 5.0, Eos % (Auto) 0.0, Baso % (Auto) 0.3, Absolute Neuts (auto) 22.3 H, Absolute Lymphs (auto) 1.01, Nucleated RBC % 0, Differential Comment SCANNED 05/11/20 18:15: PT 14.7, INR 1.2, APTT 26.1 05/11/20 18:15: Sodium 136, Potassium 3.3 L, Chloride 104, Carbon Dioxide 25.0, Anion Gap 7, BUN 11, Creatinine 0.93, Estim Creat Clear Calc 91.55, Est GFR (MDRD) Af Amer 106, Est GFR (MDRD) Non-Af 87, BUN/Creatinine Ratio 11.8, Glucose 106, Calcium 8.9, Troponin I < 0.015 05/11/20 18:15: Ethyl Alcohol 7.0 05/11/20 18:15: Total Bilirubin 0.90, Direct Bilirubin 0.21, AST 16, ALT 17, Alkaline Phosphatase 99, Total Protein 8.3 H, Albumin 3.7, Globulin 4.6 H 05/11/20 19:00: Urine Opiates Screen NEGATIVE, Urine Methadone Screen NEGATIVE, Ur Barbiturates Screen NEGATIVE, Ur Phencyclidine Scrn NEGATIVE, Ur Amphetamines Screen NEGATIVE, U Methamphetamin-MDMA NEGATIVE, U Benzodiazepines Scrn NEGAT TEVIN, Urine Cocaine Screen NEGATIVE, U Cannabinoids Screen NEGATIVE, Ur Drug Screen Comment 05/11/20 19:00: Urine Color Yellow, Urine Clarity Clear, Urine pH 7.0, Ur Specific Brandeis 1.010, Urine Protein 15 H, Urine Glucose (UA) Normal, Urine Ketones 50 H, Urine Occult Blood 50 H, Urine Nitrite Negative, Urine Bilirubin Negative, Urine Urobilinogen 4 H, Ur Leukocyte Esterase Negative, Urine RBC 5-10 SEEN, Urine WBC 0-5 SEEN, Ur Squamous Epith Cells 0 SEEN, Urine Bacteria 0 SEEN, Urine Mucus 0 SEEN 05/12/20 02:37: Ammonia 27.0 05/12/20 02:37: WBC Cancelled, Corrected WBC Cancelled, RBC Cancelled, Hgb Cancelled, Hct Cancelled, MCV Cancelled, MCH Cancelled, MCHC Cancelled, RDW Std Deviation Cancelled, RDW Coeff of Esteban Cancelled, Plt Count Cancelled, MPV Cancelled, Immature Gran % (Auto) Cancelled, Neut % (Auto) Cancelled, Lymph % (Auto) Cancelled, [place] % (Auto) Cancelled, Eos % (Auto) Cancelled, Baso % (Auto) Cancelled, Absolute Neuts (auto) Cancelled, Absolute Lymphs (auto) Cancelled, Total Counted Cancelled, Neutrophils % (Manual) Cancelled, Band Neutrophils % Cancelled, Lymphocytes % (Manual) Cancelled, Monocytes % (Manual) Cancelled, Eosinophils % (Manual) Cancelled, Basophils % (Manual) Cancelled, Metamyelocytes % Cancelled, Myelocytes % Cancelled, Promyelocytes % Cancelled, Blast Cells % Cancelled, Plasma Cell % (Manual) Cancelled, Other Cells % Cancelled, Nucleated RBC % Cancelled, Nucleated RBCs/100 WBC Cancelled, Differential Comment Cancelled, Diff Path Review Cancelled, Hypersegmented Neuts Cancelled, Atypical Lymphocytes Cancelled, Reactive Lymphocytes Cancelled, Smudge Cells Cancelled, Toxic Granulation Cancelled, Toxic Vacuolation Cancelled, Dohle Bodies Cancelled, Stacey Rods Cancelled, Platelet Estimate Cancelled, Plt Morphology Comment Cancelled, RBC Morphology Cancelled, Polychromasia Cancelled, Hypochromasia Cancelled, Poikilocytosis Cancelled, Basophilic Stippling Cancelled, Anisocytosis Cancelled, Microcytosis Cancelled, Macrocytosis Cancelled, Spherocytes Cancelled, Sickle Cells Cancelled, Target Cells Cancelled, Tear Drop Cells Cancelled, Ovalocytes Cancelled, Stomatocytes Cancelled, Swain-Salona Bodies Cancelled, Buxton Cells Cancelled, Bite Cells Cancelled, Crenated Cell Cancelled, Acanthocytes (Spur) Cancelled, Rouleaux Cancelled, Schistocytes Cancelled 05/12/20 02:37: Sodium 136, Potassium 3.5, Chloride 104, Carbon Dioxide 23.0, Anion Gap 9, BUN 9, Creatinine 0.98, Estim Creat Clear Calc 86.88, Est GFR (MDRD) Af Amer 100, Est GFR (MDRD) Non-Af 82, BUN/Creatinine Ratio 9.2 L, Glucose 151 H, Calcium 7.7 L, Total Bilirubin 0.70, AST 25, ALT 24, Alkaline Phosphatase 77, Total Protein 7.2, Albumin 2.9 L, Globulin 4.3 H, Albumin/Globulin Ratio 0.7 L 05/12/20 03:15: WBC 36.7 H*, RBC 4.11 L, Hgb 13.1, Hct 40.3, MCV 98.1 H, MCH 31.9, MCHC 32.5, RDW Std Deviation 45.7 H, RDW Coeff of Esteban 12.7, Plt Count 228, MPV 8.8, Immature Gran % (Auto) 1.300 H, Neut % (Auto) 89.9 H, Lymph % (Auto) 3.1 L, [place] % (Auto) 5.3, Eos % (Auto) 0.0, Baso % (Auto) 0.4, Absolute Neuts (auto) 33.0 H, Absolute Lymphs (auto) 1.15, Nucleated RBC % 0, Differential Comment SCANNED, Diff Path Review May foll Clinical Impression(s) from Imaging Studies Brain CT 05/11/20 18:09 IMPRESSION: Negative for hemorrhage, hematoma or extra-axial fluid collection. Negative for demarcation of a major new nonhemorrhagic infarct zone or mass density. Incidental sinus and mastoid findings as described above. Electronically Signed: Shruthi Granger MD at 18:35 EST , Service support , ADDENDUM: 05/11/20 184 IMPRESSION: Negative for hemorrhage, hematoma or extra-axial fluid collection. Negative for demarcation of a major new nonhemorrhagic infarct zone or mass density. Incidental sinus and mastoid findings as described above. N.B. : The above information has been verbally conveyed by Shruthi Granger MD to Mely Mccarthy MD, on 05/11/2020 18:36:09 (ET). Electronically Signed: Shruthi Granger MD at 18:35 EST , Service support , Head/Neck CTA 05/11/20 18:39 IMPRESSION: Minimal atherosclerosis of the right internal carotid artery otherwise within normal limits CTA Head and neck with contrast. N.B. : The above information has been verbally conveyed by Renae Farfan MD to Mely Fleming MD, on 05/11/2020 19:50:57 (ET). Electronically Signed: Renae Farfan MD at 19:53 EST Tel , Service support , ADDENDUM: 05/11/201958 IMPRESSION: Minimal atherosclerosis of the right internal carotid artery otherwise within normal limits CTA Head and neck with contrast. N.B. : The above information has been verbally conveyed by Renae Farfan MD to Mely Fleming MD, on 05/11/2020 19:50:57 (ET). Electronically Signed: Renae Farfan MD at 19:53 EST Tel , Service support , Chest X-Ray 05/11/20 19:25 IMPRESSION: Limited inspiration. Mild atelectasis at the right lung base. Electronically Signed: Shruthi Granger MD at 20:18 EST , Service support , Abdomen/Pelvis CT 05/11/20 23:24 IMPRESSION: Moderate size right-sided renal cysts with benign features. There is either a complex right peripelvic cyst measuring 3.3 x 2.2 cm versus renal artery aneurysm within the right renal hilum. Recommend follow-up ultrasound with color Doppler for further evaluation. And/or When appropriate arterial phase contrast CT with IV contrast may be helpful for further clarification. No evidence of hydronephrosis Nonspecific perinephric stranding. Wall thickening of the bladder suspicious for cystitis. There is a Rutledge catheter in place. Nonspecific bowel gas pattern with mild distention of the small bowel suggestive of ileus. There is substantial artifact within the lung bases there is lower lobe atelectasis. Electronically Signed: Smiley Joshua MD at 0:36 EST Tel , Service support , Current Medications Acetaminophen (Acetaminophen 650 Mg Suppository) 650 mg RC Q4H PRN PRN PRN Reason: Pain Score 1-10/Temp > 100.7 F Last Admin: 05/12/20 04:46 Dose: 650 mg Documented by: Vancomycin IV Pharmacy to Dose (1 ea/ Sodium Chloride) 500 mls @ 250 mls/hr IV PRN PRN; Protocol PRN Reason: Rx to Dose Ceftriaxone Sodium 2 gm/ (Sodium Chloride) 50 mls @ 100 mls/hr IV Q12 OMAR Acyclovir Sodium 775 mg/ (Dextrose) 265.5 mls @ 265.5 mls/hr IV Q8 [facility] Last Infusion: 05/12/20 07:11 Dose: Infused Documented by: Vancomycin HCl 1,750 mg/ (Sodium Chloride) 535 mls @ 250 mls/hr IV Q12H [facility] Sodium Chloride () 250 mls @ 15 mls/hr IV .[id number] PRN PRN Reason: Saline Flush Sodium Chloride () 250 mls @ 15 mls/hr IV .[id number] PRN PRN Reason: Additional IVPB Infusion Sodium Chloride () 1,000 mls @ 100 mls/hr IV .Q10H [facility] Last Infusion: 05/12/20 07:11 Dose: 100 mls/hr Documented by: Levofloxacin (Levaquin Iv) 750 mg in 150 mls @ 100 mls/hr IV Q24@2200 [facility] Last Infusion: 05/12/20 04:31 Dose: Infused Documented by: Pantoprazole Sodium 40 mg/ (Sodium Chloride) 110 mls @ 330 mls/hr IV Q12 [facility] Last Infusion: 05/12/20 03:00 Dose: Infused Documented by: Thiamine HCl 200 mg/ Sodium (Chloride) 52 mls @ 200 mls/hr IV DAILY [facility] Last Infusion: 05/12/20 03:17 Dose: Infused Documented by: Folic Acid 1 mg/ Sodium (Chloride) 50.2 mls @ 200 mls/hr IV DAILY [facility] Last Infusion: 05/12/20 02:59 Dose: Infused Documented by: Labetalol HCl (Labetalol (Prefilled) 20 Mg/4 Ml) 10 mg IV Q6H PRN PRN PRN Reason: SBP > 160; OR DBP > 120 Methylprednisolone (Methylprednisolone 40 Mg/Ml Vial) 40 mg IV DAILY [facility] Last Admin: 05/12/20 02:19 Dose: 40 mg Documented by: Ondansetron HCl (Ondansetron 4 Mg/2 Ml Vial) 4 mg IV Q8H PRN PRN PRN Reason: NAUSEA/VOMITING Last Admin: 05/12/20 05:42 Dose: 4 mg Documented by: Sodium Chloride (0.9% Saline Lock 10 Ml Syringe) 10 - 40 ml IV UD PRN PRN Reason: SALINE FLUSH Last Admin: 05/12/20 05:43 Dose: 10 ml Documented by: Assessment/Plan Active and Suspected Problems Infectious encephalopathy (Acute) Mastoiditis (Acute) RECOMMENDATIONS: 1. Await infectious disease recommendations 2. Continue antibiotics at meningitic doses 3. Monitor for withdrawal symptoms 4. Possible tertiary transfer if develops recurrent hematemesis IMPRESSIONS: 1. Severe sepsis Clinical suspicion for a left mastoiditis leading to current presentation. There is some discussion of possible drainage from the left ear, but patient is not cooperating with evaluation. Patient growing gram-positive in his blood, so pneumococcus would be a concern. Patient is not demonstrating nuchal rigidity. Patient is on broad-spectrum antibiotics and steroid therapies at meningitic doses. Infectious disease has been consulted. Patient is currently hemodynamically stable. Conservative measures for temperature management. Patient would likely benefit from an LP, but await risk versus benefit by infectious disease. 2. Hematemesis in the setting of possible alcoholism Patient reportedly had hematemesis in the ER. Unclear if patient has a history of varices. Patient does have adequate platelet count indicating a lower risk of varices. If patient were to develop repeat hematemesis, transfer to a tertiary center for GI evaluation may be necessary. We will also need to monitor for withdrawal symptoms. Would hold off on any phenobarbital as neurologic status will need to be followed given concerns for possible meningitis. 3. Poor history/right parapelvic cyst/alcohol/history of smoking Complicates care, management, recovery and prognosis. Will attempt to obtain more information through the day. Patient is currently a full code. Have not discussed with family in detail about options. Inpatient E&M: 70406 Init Hosp L3
--- NOTE | 2020-05-12 09:24 | CASEMGMT ---
RN CM Assessment Intro role of CM to patient in room. Patient is lethargic, but awakens and able to answer questions. He did not offer information, but did answer when asked a question. Pt lives with significant other Daja. When asked if Daja helps him with care at home he stated he doesn't need it. Diagnosis: Acute infectious encephalopathy PCP: Dr. Peterson. Pt admitted that he has not seen PCP in a long time. Call to office, spoke with nurse and he has not been to office since July 2018. Per nurse, patient is still active with office and can follow up with Dr. Peterson Insurance: [employer] [facility] Pharmacy: [facility] Living arrangements: Lives in mobile home with significant other. States he does not use any ambulatory DME and denies care needs with ADL's. Pt drives and works, states he works @ night sometimes and this makes him tired. Denied using alcohol yesterday. SW Referral: ETOH abuse, depression. DME: none per patient Pt DC Goals: Home DC PLAN: TBD. Ion POP RN ACM
--- NOTE | 2020-05-12 09:52 | PCM.HP.ID ---
Problem List (1) Bacteremia Status: Acute Reason for Consult: bacteremia Consulted by: Dr. Mercedes History of Present Illness: The patient is a 59 year old M presented yesterday with encephalopathy. He reports one week of chills, several days of clear L ear drainage. Mild headache, having neck pain with movement, no vision changes/photophobia. No rash, no n/v/d. No prior h/o cold sores/HSV/meningitis. In ED, tox screen and etoh level were neg. Admitted on vanc/ceftriaxone/levaquin/acyclovir/solumedrol. Refuses LP. Full ROS performed and neg except as noted above. - Medical History Past Medical History (Chronic Problems): Chronic Problems Hyperlipidemia (Chronic) Hypertension (Chronic) Allergies/Adverse Reactions: Allergies No Known Allergies Allergy (Verified 11/26/14 19:01) Home Medications: Ambulatory Orders Medication Instructions Recorded Lisinopril [Zestril] 40 mg PO DAILY 07/09/14 - Social History SMOKING STATUS:: Former smoker Vital Signs Temp Pulse Resp BP Pulse Ox 99.3 F H 70 18 135/89 H 96 05/12/20 09:00 05/12/20 09:00 05/12/20 09:00 05/12/20 09:00 05/12/20 09:05 Oxygen Flow Rate (L/min) 2 Oxygen Delivery Method Room Air Weight: 84.096 kg Body Mass Index (BMI) 25.1 Finger Stick Blood Glucose 98 Microbiology Past 72 Hours 05/11/20 20:56 Blood Culture - Preliminary Blood Culture (Wb) - Left Hand 05/11/20 18:05 Blood Culture - Preliminary Blood Culture (Wb) - Anticubital Right 05/11/20 19:15 Stool Occult Blood (JILLIAN) - Final Stool 05/11/20 18:40 SARS-CoV-2 Antigen (Rapid) - Final Mucosa - Nasopharyngeal Laboratory Tests Past 24 Hrs 05/11/20 05/11/20 05/11/20 18:05 18:15 18:15 WBC 24.9 H Corrected WBC RBC 4.92 Hgb 15.4 Hct 46.1 MCV 93.7 MCH 31.3 MCHC 33.4 RDW Std Deviation 43.6 RDW Coeff of Esteban 12.6 Plt Count 300 MPV 9.0 Immature Gran % (Auto) 1.000 H Neut % (Auto) 89.6 H Lymph % (Auto) 4.1 L [place] % (Auto) 5.0 Eos % (Auto) 0.0 Baso % (Auto) 0.3 Absolute Neuts (auto) 22.3 H Absolute Lymphs (auto) 1.01 Total Counted Neutrophils % (Manual) Band Neutrophils % Lymphocytes % (Manual) Monocytes % (Manual) Eosinophils % (Manual) Basophils % (Manual) Metamyelocytes % Myelocytes % Promyelocytes % Blast Cells % Plasma Cell % (Manual) Other Cells % Nucleated RBC % 0 Nucleated RBCs/100 WBC Differential Comment SCANNED Diff Path Review Hypersegmented Neuts Atypical Lymphocytes Reactive Lymphocytes Smudge Cells Toxic Granulation Toxic Vacuolation Dohle Bodies Stacey Rods Platelet Estimate Plt Morphology Comment RBC Morphology Polychromasia Hypochromasia Poikilocytosis Basophilic Stippling Anisocytosis Microcytosis Macrocytosis Spherocytes Sickle Cells Target Cells Tear Drop Cells Ovalocytes Stomatocytes [place] Bodies Lexy Cells Bite Cells Crenated Cell Acanthocytes (Spur) Rouleaux Schistocytes PT 14.7 INR 1.2 APTT 26.1 Sodium Potassium Chloride Carbon Dioxide Anion Gap BUN Creatinine Estim Creat Clear Calc Est GFR (MDRD) Af Amer Est GFR (MDRD) Non-Af BUN/Creatinine Ratio Glucose Lactic Acid 1.5 Calcium Total Bilirubin Direct Bilirubin AST ALT Alkaline Phosphatase Ammonia Troponin I Total Protein Albumin Globulin Albumin/Globulin Ratio Urine Color Urine Clarity Urine pH Ur Specific [place] Urine Protein Urine Glucose (UA) Urine Ketones Urine Occult Blood Urine Nitrite Urine Bilirubin Urine Urobilinogen Ur Leukocyte Esterase Urine RBC Urine WBC Ur Squamous Epith Cells Urine Bacteria Urine Mucus Urine Opiates Screen Urine Methadone Screen Ur Barbiturates Screen Ur Phencyclidine Scrn Ur Amphetamines Screen U Methamphetamin-MDMA U Benzodiazepines Scrn Urine Cocaine Screen U Cannabinoids Screen Ur Drug Screen Comment Ethyl Alcohol 05/11/20 05/11/20 05/11/20 18:15 18:15 18:15 WBC Corrected WBC RBC Hgb Hct MCV MCH MCHC RDW Std Deviation RDW Coeff of Esteban Plt Count MPV Immature Gran % (Auto) Neut % (Auto) Lymph % (Auto) [place] % (Auto) Eos % (Auto) Baso % (Auto) Absolute Neuts (auto) Absolute Lymphs (auto) Total Counted Neutrophils % (Manual) Band Neutrophils % Lymphocytes % (Manual) Monocytes % (Manual) Eosinophils % (Manual) Basophils % (Manual) Metamyelocytes % Myelocytes % Promyelocytes % Blast Cells % Plasma Cell % (Manual) Other Cells % Nucleated RBC % Nucleated RBCs/100 WBC Differential Comment Diff Path Review Hypersegmented Neuts Atypical Lymphocytes Reactive Lymphocytes Smudge Cells Toxic Granulation Toxic Vacuolation Dohle Bodies Stacey Rods Platelet Estimate Plt Morphology Comment RBC Morphology Polychromasia Hypochromasia Poikilocytosis Basophilic Stippling Anisocytosis Microcytosis Macrocytosis Spherocytes Sickle Cells Target Cells Tear Drop Cells Ovalocytes Stomatocytes [place] Bodies [place] Cells Bite Cells Crenated Cell Acanthocytes (Spur) Rouleaux Schistocytes PT INR APTT Sodium 136 Potassium 3.3 L Chloride 104 Carbon Dioxide 25.0 Anion Gap 7 BUN 11 Creatinine 0.93 Estim Creat Clear Calc 91.55 Est GFR (MDRD) Af Amer 106 Est GFR (MDRD) Non-Af 87 BUN/Creatinine Ratio 11.8 Glucose 106 Lactic Acid Calcium 8.9 Total Bilirubin 0.90 Direct Bilirubin 0.21 AST 16 ALT 17 Alkaline Phosphatase 99 Ammonia Troponin I < 0.015 Total Protein 8.3 H Albumin 3.7 Globulin 4.6 H Albumin/Globulin Ratio Urine Color Urine Clarity Urine pH Ur Specific [place] Urine Protein Urine Glucose (UA) Urine Ketones Urine Occult Blood Urine Nitrite Urine Bilirubin Urine Urobilinogen Ur Leukocyte Esterase Urine RBC Urine WBC Ur Squamous Epith Cells Urine Bacteria Urine Mucus Urine Opiates Screen Urine Methadone Screen Ur Barbiturates Screen Ur Phencyclidine Scrn Ur Amphetamines Screen U Methamphetamin-MDMA U Benzodiazepines Scrn Urine Cocaine Screen U Cannabinoids Screen Ur Drug Screen Comment Ethyl Alcohol 7.0 05/11/20 05/11/20 05/12/20 19:00 19:00 02:37 WBC Corrected WBC RBC Hgb Hct MCV MCH MCHC RDW Std Deviation RDW Coeff of Esteban Plt Count MPV Immature Gran % (Auto) Neut % (Auto) Lymph % (Auto) [place] % (Auto) Eos % (Auto) Baso % (Auto) Absolute Neuts (auto) Absolute Lymphs (auto) Total Counted Neutrophils % (Manual) Band Neutrophils % Lymphocytes % (Manual) Monocytes % (Manual) Eosinophils % (Manual) Basophils % (Manual) Metamyelocytes % Myelocytes % Promyelocytes % Blast Cells % Plasma Cell % (Manual) Other Cells % Nucleated RBC % Nucleated RBCs/100 WBC Differential Comment Diff Path Review Hypersegmented Neuts Atypical Lymphocytes Reactive Lymphocytes Smudge Cells Toxic Granulation Toxic Vacuolation Dohle Bodies Stacey Rods Platelet Estimate Plt Morphology Comment RBC Morphology Polychromasia Hypochromasia Poikilocytosis Basophilic Stippling Anisocytosis Microcytosis Macrocytosis Spherocytes Sickle Cells Target Cells Tear Drop Cells Ovalocytes Stomatocytes [place] Bodies Lexy Cells Bite Cells Crenated Cell Acanthocytes (Spur) Rouleaux Schistocytes PT INR APTT Sodium Potassium Chloride Carbon Dioxide Anion Gap BUN Creatinine Estim Creat Clear Calc Est GFR (MDRD) Af Amer Est GFR (MDRD) Non-Af BUN/Creatinine Ratio Glucose Lactic Acid Calcium Total Bilirubin Direct Bilirubin AST ALT Alkaline Phosphatase Ammonia 27.0 Troponin I Total Protein Albumin Globulin Albumin/Globulin Ratio Urine Color Yellow Urine Clarity Clear Urine pH 7.0 Ur Specific [place] 1.010 Urine Protein 15 H Urine Glucose (UA) Normal Urine Ketones 50 H Urine Occult Blood 50 H Urine Nitrite Negative Urine Bilirubin Negative Urine Urobilinogen 4 H Ur Leukocyte Esterase Negative Urine RBC 5-10 SEEN Urine WBC 0-5 SEEN Ur Squamous Epith Cells 0 SEEN Urine Bacteria 0 SEEN Urine Mucus 0 SEEN Urine Opiates Screen NEGATIVE Urine Methadone Screen NEGATIVE Ur Barbiturates Screen NEGATIVE Ur Phencyclidine Scrn NEGATIVE Ur Amphetamines Screen NEGATIVE U Methamphetamin-MDMA NEGATIVE U Benzodiazepines Scrn NEGATIVE Urine Cocaine Screen NEGATIVE U Cannabinoids Screen NEGATIVE Ur Drug Screen Comment Ethyl Alcohol 05/12/20 05/12/20 05/12/20 02:37 02:37 03:15 WBC Cancelled 36.7 H* Corrected WBC Cancelled RBC Cancelled 4.11 L Hgb Cancelled 13.1 Hct Cancelled 40.3 MCV Cancelled 98.1 H MCH Cancelled 31.9 MCHC Cancelled 32.5 RDW Std Deviation Cancelled 45.7 H RDW Coeff of Esteban Cancelled 12.7 Plt Count Cancelled 228 MPV Cancelled 8.8 Immature Gran % (Auto) Cancelled 1.300 H Neut % (Auto) Cancelled 89.9 H Lymph % (Auto) Cancelled 3.1 L [place] % (Auto) Cancelled 5.3 Eos % (Auto) Cancelled 0.0 Baso % (Auto) Cancelled 0.4 Absolute Neuts (auto) Cancelled 33.0 H Absolute Lymphs (auto) Cancelled 1.15 Total Counted Cancelled Neutrophils % (Manual) Cancelled Band Neutrophils % Cancelled Lymphocytes % (Manual) Cancelled Monocytes % (Manual) Cancelled Eosinophils % (Manual) Cancelled Basophils % (Manual) Cancelled Metamyelocytes % Cancelled Myelocytes % Cancelled Promyelocytes % Cancelled Blast Cells % Cancelled Plasma Cell % (Manual) Cancelled Other Cells % Cancelled Nucleated RBC % Cancelled 0 Nucleated RBCs/100 WBC Cancelled Differential Comment Cancelled SCANNED Diff Path Review Cancelled May foll Hypersegmented Neuts Cancelled Atypical Lymphocytes Cancelled Reactive Lymphocytes Cancelled Smudge Cells Cancelled Toxic Granulation Cancelled Toxic Vacuolation Cancelled Dohle Bodies Cancelled Stacey Rods Cancelled Platelet Estimate Cancelled Plt Morphology Comment Cancelled RBC Morphology Cancelled Polychromasia Cancelled Hypochromasia Cancelled Poikilocytosis Cancelled Basophilic Stippling Cancelled Anisocytosis Cancelled Microcytosis Cancelled Macrocytosis Cancelled Spherocytes Cancelled Sickle Cells Cancelled Target Cells Cancelled Tear Drop Cells Cancelled Ovalocytes Cancelled Stomatocytes Cancelled Swain-[place] Bodies Cancelled [place] Cells Cancelled Bite Cells Cancelled Crenated Cell Cancelled Acanthocytes (Spur) Cancelled Rouleaux Cancelled Schistocytes Cancelled PT INR APTT Sodium 136 Potassium 3.5 Chloride 104 Carbon Dioxide 23.0 Anion Gap 9 BUN 9 Creatinine 0.98 Estim Creat Clear Calc 86.88 Est GFR (MDRD) Af Amer 100 Est GFR (MDRD) Non-Af 82 BUN/Creatinine Ratio 9.2 L Glucose 151 H Lactic Acid Calcium 7.7 L Total Bilirubin 0.70 Direct Bilirubin AST 25 ALT 24 Alkaline Phosphatase 77 Ammonia Troponin I Total Protein 7.2 Albumin 2.9 L Globulin 4.3 H Albumin/Globulin Ratio 0.7 L Urine Color Urine Clarity Urine pH Ur Specific [place] Urine Protein Urine Glucose (UA) Urine Ketones Urine Occult Blood Urine Nitrite Urine Bilirubin Urine Urobilinogen Ur Leukocyte Esterase Urine RBC Urine WBC Ur Squamous Epith Cells Urine Bacteria Urine Mucus Urine Opiates Screen Urine Methadone Screen Ur Barbiturates Screen Ur Phencyclidine Scrn Ur Amphetamines Screen U Methamphetamin-MDMA U Benzodiazepines Scrn Urine Cocaine Screen U Cannabinoids Screen Ur Drug Screen Comment Ethyl Alcohol - Other Studies Radiology: [] reviewed Other Studies: [] Route of nutrition/ use of supplements: [] Nutritional Intake: [] IV Site: [] Rutledge Catheter: [] - Physical Exam General: Alert, Oriented x3, Cooperative HEENT: Atraumatic, PERRLA, EOMI, - - R TM clear. L TM appears ruptured with clear/bloody drainage in canal. Neck: - - (+) stiffness and pain with active and passive neck movement. Lungs: Clear to auscultation, Normal air movement Cardiovascular: Regular rate, Regular Rhythm, No murmurs Abdomen: Soft, Non Tender, Non-Distended Extremities: No edema Skin: No rashes IV Site: Peripheral, without redness Musculoskeletal: No Tenderness to Palpation of Joints or Extremities Neurological: Cranial nerves II-XII grossly intact - Assessment/Plan Antibiotics: [] Assessment/Plan: [] Active and Suspected Problems Infectious encephalopathy (Acute) Mastoiditis (Acute) sepsis with suspected bacterial meningitis and GPC bacteremia - likely source is L ear infection. Mental status rapidly improved since admit. Ox3 this Am. Repeat bcx, I collected culture of drainage from L ear. MRI pending. May need ENT eval depending on results. Will stop acyclovir and levaquin. Cont vanc/ceftriaxone/solumedrol. Pt refuses LP. Droplet isolation for 24 hours starting from first abx. Bcx with gpc in chains, so lower suspicion for listeria at this point; will not start ampicillin. Pt also with numerous rotted teeth, will get dental xray. Will follow, thank you, d/w nursing and Dr. Mercedes
[2020-05-12] MEDS: Haloperidol Lactate 5 MG/ML Vial IV (10:40)
[2020-05-12] MEDS: LORazepam 2 MG/ML Syringe IV (11:00)
--- NOTE | 2020-05-12 11:03 | ECHOD_ITS ---
Version 3 Reason For Study: BACTEREMIA Procedure This was a 2D Doppler, Color Flow transthoracic echocardiogram. The study was technically limited. Limited info d/t pt in position. Exam performed portable in ICU/CCU. Left Ventricle Normal LV size. Left ventricular systolic function is normal. The estimated ejection fraction is 55 %. Stage 2 diastolic dysfunction. No regional wall motion abnormalities noted. Right Ventricle Normal RV size. ICD or pacer leads identified within the right ventricle. Normal systolic function. Atria Normal left atrium. Normal right atrium. Mitral Valve Normal mitral valve. Tricuspid Valve Normal tricuspid valve. Unable to estimate RV systolic pressure due to inadequate jet, pulmonary artery pressure probably normal. Aortic Valve Trisinus/trileaflet aortic valve. Pulmonic Valve Normal pulmonic valve. Great Vessels Normal aortic root. The pulmonary artery is normal size. Normal inferior vena cava. Pericardium/Pleural No pericardial effusion. MMode/2D Measurements & Calculations LVIDd: 5.0 cm IVSd: 1.1 cm LAV(MOD-bp): 35.3 ml LVIDs: 3.5 cm LVPWd: 1.0 cm LAV(MOD-bp) Indexed: 18.3 ml/m2 FS: 28.9 % LAV(MOD-sp2): 34.0 ml LAV(MOD-sp4): 35.7 ml LA A4 area: 14.2 cm2 RA A4 area: 13.6 cm2 Time Measurements MV dec time: 0.17 sec Doppler Measurements & Calculations MV E max scooby: 98.2 cm/sec Lat Peak E' Scooby: 10.3 cm/sec Med Peak E' Scooby: 8.6 cm/sec MV A max scooby: 75.6 cm/sec E/E' lat: 9.5 E/E' med: 11.4 MV E/A: 1.3 Interpretation Summary Normal LV size. Left ventricular systolic function is normal. The estimated ejection fraction is 55 %. Stage 2 diastolic dysfunction. ICD or pacer leads identified within the right ventricle. Structurally normal valves. Ordering Physician: Danielle Mercedes Referring Physician: PARMINDER ZAPATA Performed By: Adilene Crisostomo RDCS, RVT
[2020-05-12 13:35] LABS: Pathologist Review Reviewed
--- NOTE | 2020-05-12 14:58 | CASEMGMT ---
Social Work SW attempted to see pt throughout the day. Pt was in procedures earlier and at this time SW attempted to see however he is sleeping and not awakening to call of name. Nursing noted pt has been medicated for procedure later today. YIFAN will follow up with pt tomorrow. MARIKA Yates
[2020-05-13] VITALS (18 sets, daily range): BP systolic 116–164; BP diastolic 74–104; PULSE 63–105; RESP 14–25; TEMP 36.7–38.6; O2SAT 91–97
[2020-05-13 04:55] LABS: Absolute Lymphocyte Count 2.37 X10^3/uL (0.83-4.51); Absolute Neutrophil Count 30.8 X10^3/uL (2.0-7.7); Basophil# 0.08 X10^3/uL; Basophil% 0.2 % (0-1); Hematocrit 37.3 % (40-54); Hemoglobin 12.4 g/dL (13.0-16.5); Lymphocyte # 2.37 X10^3/ul (4.0); Lymphocyte % 6.6 % (19-41); Mean Corp Hgb Conc 33.2 g/dL (32-36); Mean Corpuscular Hgb 31.6 pg (27.0-32.0); Mean Corpuscular Volume 95.2 fL (80-94); Mean Platelet Vol. 9.5 fl (6.2-12.0); Monocyte# 2.09 X10^3/uL; Monocyte% 5.8 % (0-10); NRBC Flagged by Analyzer 0 % (0-5); Neutrophil # 30.81 X10^3/uL (2.7-7.7); Neutrophil % 85.7 % (47-70); POSITIVE COUNT YES; POSITIVE DIFFERENTIAL YES; Platelet Count 235 K/mm3 (150-450); RBC Distribution Width CV 13.1 % (11.6-14.6); RBC Distribution Width SD 45.5 fl (35.1-43.9); Red Blood Count 3.92 M/mm3 (4.6-6.2)
[2020-05-13 04:56] LABS: Differential Indicated SCAN CRITERIA MET
[2020-05-13 05:08] LABS: Anion Gap 6 (5-15); BUN 15 mg/dL (7-18); BUN/Creat Ratio 17.1 RATIO (10-20); Calcium,Total 7.9 mg/dL (8.5-10.1); Chloride 111 mmol/L (98-107); Creatinine, Serum 0.88 mg/dL (0.70-1.30); EST Glomerular Filtration Rate 94 mL/min (>60); Est Glom Filt Rate - Afr Amer 113 mL/min (>60); Estimated Creatinine Clearance 96.76 ml/min; Glucose 111 mg/dL (74-106); Potassium 3.5 mmol/L (3.5-5.1); Sodium Level 143 mmol/L (136-145)
[2020-05-13 05:09] LABS: Differential Comment SCANNED
[2020-05-13] MEDS: 0.9% Normal Saline 1,000 ML 100 ML IV ×2 (06:04→18:55)
[2020-05-13] MEDS: Acetaminophen 325 MG Tablet 650 MG PO ×2 (06:53→19:48)
--- NOTE | 2020-05-13 07:10 | PCM.PN.INT ---
Subjective: Patient did well overnight. Patient continues to have fever and chills, but has remained hemodynamically stable. Patient states he feels subjectively improved compared to previous. Patient is very clear that he does not want to from this condition. Patient is still refusing LP, but feels he is improving on current therapy. Patient reiterated that he has had ear pain for 3 days and had drainage for 1 day prior to presentation. General: Alert, Oriented x3, Cooperative, - - Mild distress secondary to chills HEENT: Atraumatic, PERRLA, EOMI, Normocephalic, - - No scleral icterus or injection noted. Ear not evaluated. Oral: Moist Mucosa, No Gingival or Mucosal Lesions/ Ulcerations Neck: Supple, No JVD, No Nodes, Trachea Midline Lungs: Clear to auscultation, Normal air movement, No rhonchi, No wheeze, No rales Cardiovascular: Regular rate, Regular Rhythm, Normal S1, Normal S2, No murmurs, No rub noted, No Gallop Abdomen: Bowel Sounds Present, Soft, Non Tender, Non-Distended Extremities: No cyanosis, Clubbing Skin: - - No change from previous Musculoskeletal: No Tenderness to Palpation of Joints or Extremities Lymphatic: No Cervical, Supraclavicular, or Inguinal Adenopathy Neurological: Cranial nerves II-XII grossly intact, Neuro grossly intact, Motor Exam 5/5 strength throughout Psych/Mental Status: Alert and oriented to time, place, person, mood and affect Vital Signs Temp Pulse Resp BP Pulse Ox 38.4 C H 97 17 148/92 H 94 05/13/20 06:00 05/13/20 06:00 05/13/20 06:00 05/13/20 06:00 05/13/20 06:00 Oxygen Flow Rate (L/min) 2 Oxygen Delivery Method Room Air Weight: 84.096 kg Body Mass Index (BMI) 25.1 Finger Stick Blood Glucose 98 Intake and Output for Last 24 Hours 05/11/20 05/12/20 05/13/20 23:59 23:59 23:59 Intake Total 3050 / 3050 3866.53 / 3866.53 1000 / 1000 Output Total 2725 / 2825 575 / 575 Balance 3050 / 3050 1141.53 / 1041.53 425 / 425 Labs (Last 48 Hours) 05/11/20 05/11/20 05/11/20 18:05 18:15 18:15 WBC 24.9 H Corrected WBC RBC 4.92 Hgb 15.4 Hct 46.1 MCV 93.7 MCH 31.3 MCHC 33.4 RDW Std Deviation 43.6 RDW Coeff of Esteban 12.6 Plt Count 300 MPV 9.0 Immature Gran % (Auto) 1.000 H Neut % (Auto) 89.6 H Lymph % (Auto) 4.1 L Baldwin % (Auto) 5.0 Eos % (Auto) 0.0 Baso % (Auto) 0.3 Absolute Neuts (auto) 22.3 H Absolute Lymphs (auto) 1.01 Total Counted Neutrophils % (Manual) Band Neutrophils % Lymphocytes % (Manual) Monocytes % (Manual) Eosinophils % (Manual) Basophils % (Manual) Metamyelocytes % Myelocytes % Promyelocytes % Blast Cells % Plasma Cell % (Manual) Other Cells % Nucleated RBC % 0 Nucleated RBCs/100 WBC Differential Comment SCANNED Diff Path Review Hypersegmented Neuts Atypical Lymphocytes Reactive Lymphocytes Smudge Cells Toxic Granulation Toxic Vacuolation Dohle Bodies Stacey Rods Platelet Estimate Plt Morphology Comment RBC Morphology Polychromasia Hypochromasia Poikilocytosis Basophilic Stippling Anisocytosis Microcytosis Macrocytosis Spherocytes Sickle Cells Target Cells Tear Drop Cells Ovalocytes Stomatocytes [place] Bodies Lexy Cells Bite Cells Crenated Cell Acanthocytes (Spur) Rouleaux Schistocytes PT 14.7 INR 1.2 APTT 26.1 Sodium Potassium Chloride Carbon Dioxide Anion Gap BUN Creatinine Estim Creat Clear Calc Est GFR (MDRD) Af Amer Est GFR (MDRD) Non-Af BUN/Creatinine Ratio Glucose Lactic Acid 1.5 Calcium Total Bilirubin Direct Bilirubin AST ALT Alkaline Phosphatase Ammonia Troponin I Total Protein Albumin Globulin Albumin/Globulin Ratio Urine Color Urine Clarity Urine pH Ur Specific [place] Urine Protein Urine Glucose (UA) Urine Ketones Urine Occult Blood Urine Nitrite Urine Bilirubin Urine Urobilinogen Ur Leukocyte Esterase Urine RBC Urine WBC Ur Squamous Epith Cells Urine Bacteria Urine Mucus Urine Opiates Screen Urine Methadone Screen Ur Barbiturates Screen Ur Phencyclidine Scrn Ur Amphetamines Screen U Methamphetamin-MDMA U Benzodiazepines Scrn Urine Cocaine Screen U Cannabinoids Screen Ur Drug Screen Comment Ethyl Alcohol 03/03/21 03/03/21 03/03/21 18:15 18:15 18:15 WBC Corrected WBC RBC Hgb Hct MCV MCH MCHC RDW Std Deviation RDW Coeff of Esteban Plt Count MPV Immature Gran % (Auto) Neut % (Auto) Lymph % (Auto) [place] % (Auto) Eos % (Auto) Baso % (Auto) Absolute Neuts (auto) Absolute Lymphs (auto) Total Counted Neutrophils % (Manual) Band Neutrophils % Lymphocytes % (Manual) Monocytes % (Manual) Eosinophils % (Manual) Basophils % (Manual) Metamyelocytes % Myelocytes % Promyelocytes % Blast Cells % Plasma Cell % (Manual) Other Cells % Nucleated RBC % Nucleated RBCs/100 WBC Differential Comment Diff Path Review Hypersegmented Neuts Atypical Lymphocytes Reactive Lymphocytes Smudge Cells Toxic Granulation Toxic Vacuolation Dohle Bodies Stacey Rods Platelet Estimate Plt Morphology Comment RBC Morphology Polychromasia Hypochromasia Poikilocytosis Basophilic Stippling Anisocytosis Microcytosis Macrocytosis Spherocytes Sickle Cells Target Cells Tear Drop Cells Ovalocytes Stomatocytes [place] Bodies Clyman Cells Bite Cells Crenated Cell Acanthocytes (Spur) Rouleaux Schistocytes PT INR APTT Sodium 136 Potassium 3.3 L Chloride 104 Carbon Dioxide 25.0 Anion Gap 7 BUN 11 Creatinine 0.93 Estim Creat Clear Calc 91.55 Est GFR (MDRD) Af Amer 106 Est GFR (MDRD) Non-Af 87 BUN/Creatinine Ratio 11.8 Glucose 106 Lactic Acid Calcium 8.9 Total Bilirubin 0.90 Direct Bilirubin 0.21 AST 16 ALT 17 Alkaline Phosphatase 99 Ammonia Troponin I < 0.015 Total Protein 8.3 H Albumin 3.7 Globulin 4.6 H Albumin/Globulin Ratio Urine Color Urine Clarity Urine pH Ur Specific [place] Urine Protein Urine Glucose (UA) Urine Ketones Urine Occult Blood Urine Nitrite Urine Bilirubin Urine Urobilinogen Ur Leukocyte Esterase Urine RBC Urine WBC Ur Squamous Epith Cells Urine Bacteria Urine Mucus Urine Opiates Screen Urine Methadone Screen Ur Barbiturates Screen Ur Phencyclidine Scrn Ur Amphetamines Screen U Methamphetamin-MDMA U Benzodiazepines Scrn Urine Cocaine Screen U Cannabinoids Screen Ur Drug Screen Comment Ethyl Alcohol 7.0 05/11/20 05/11/20 05/12/20 19:00 19:00 02:37 WBC Corrected WBC RBC Hgb Hct MCV MCH MCHC RDW Std Deviation RDW Coeff of Esteban Plt Count MPV Immature Gran % (Auto) Neut % (Auto) Lymph % (Auto) [place] % (Auto) Eos % (Auto) Baso % (Auto) Absolute Neuts (auto) Absolute Lymphs (auto) Total Counted Neutrophils % (Manual) Band Neutrophils % Lymphocytes % (Manual) Monocytes % (Manual) Eosinophils % (Manual) Basophils % (Manual) Metamyelocytes % Myelocytes % Promyelocytes % Blast Cells % Plasma Cell % (Manual) Other Cells % Nucleated RBC % Nucleated RBCs/100 WBC Differential Comment Diff Path Review Hypersegmented Neuts Atypical Lymphocytes Reactive Lymphocytes Smudge Cells Toxic Granulation Toxic Vacuolation Dohle Bodies Stacey Rods Platelet Estimate Plt Morphology Comment RBC Morphology Polychromasia Hypochromasia Poikilocytosis Basophilic Stippling Anisocytosis Microcytosis Macrocytosis Spherocytes Sickle Cells Target Cells Tear Drop Cells Ovalocytes Stomatocytes [place] Bodies Lexy Cells Bite Cells Crenated Cell Acanthocytes (Spur) Rouleaux Schistocytes PT INR APTT Sodium Potassium Chloride Carbon Dioxide Anion Gap BUN Creatinine Estim Creat Clear Calc Est GFR (MDRD) Af Amer Est GFR (MDRD) Non-Af BUN/Creatinine Ratio Glucose Lactic Acid Calcium Total Bilirubin Direct Bilirubin AST ALT Alkaline Phosphatase Ammonia 27.0 Troponin I Total Protein Albumin Globulin Albumin/Globulin Ratio Urine Color Yellow Urine Clarity Clear Urine pH 7.0 Ur Specific [place] 1.010 Urine Protein 15 H Urine Glucose (UA) Normal Urine Ketones 50 H Urine Occult Blood 50 H Urine Nitrite Negative Urine Bilirubin Negative Urine Urobilinogen 4 H Ur Leukocyte Esterase Negative Urine RBC 5-10 SEEN Urine WBC 0-5 SEEN Ur Squamous Epith Cells 0 SEEN Urine Bacteria 0 SEEN Urine Mucus 0 SEEN Urine Opiates Screen NEGATIVE Urine Methadone Screen NEGATIVE Ur Barbiturates Screen NEGATIVE Ur Phencyclidine Scrn NEGATIVE Ur Amphetamines Screen NEGATIVE U Methamphetamin-MDMA NEGATIVE U Benzodiazepines Scrn NEGATIVE Urine Cocaine Screen NEGATIVE U Cannabinoids Screen NEGATIVE Ur Drug Screen Comment Ethyl Alcohol 05/12/20 05/12/20 05/12/20 02:37 02:37 03:15 WBC Cancelled 36.7 H* Corrected WBC Cancelled RBC Cancelled 4.11 L Hgb Cancelled 13.1 Hct Cancelled 40.3 MCV Cancelled 98.1 H MCH Cancelled 31.9 MCHC Cancelled 32.5 RDW Std Deviation Cancelled 45.7 H RDW Coeff of Esteban Cancelled 12.7 Plt Count Cancelled 228 MPV Cancelled 8.8 Immature Gran % (Auto) Cancelled 1.300 H Neut % (Auto) Cancelled 89.9 H Lymph % (Auto) Cancelled 3.1 L [place] % (Auto) Cancelled 5.3 Eos % (Auto) Cancelled 0.0 Baso % (Auto) Cancelled 0.4 Absolute Neuts (auto) Cancelled 33.0 H Absolute Lymphs (auto) Cancelled 1.15 Total Counted Cancelled Neutrophils % (Manual) Cancelled Band Neutrophils % Cancelled Lymphocytes % (Manual) Cancelled Monocytes % (Manual) Cancelled Eosinophils % (Manual) Cancelled Basophils % (Manual) Cancelled Metamyelocytes % Cancelled Myelocytes % Cancelled Promyelocytes % Cancelled Blast Cells % Cancelled Plasma Cell % (Manual) Cancelled Other Cells % Cancelled Nucleated RBC % Cancelled 0 Nucleated RBCs/100 WBC Cancelled Differential Comment Cancelled SCANNED Diff Path Review Cancelled Reviewed Hypersegmented Neuts Cancelled Atypical Lymphocytes Cancelled Reactive Lymphocytes Cancelled Smudge Cells Cancelled Toxic Granulation Cancelled Toxic Vacuolation Cancelled Dohle Bodies Cancelled Stacey Rods Cancelled Platelet Estimate Cancelled Plt Morphology Comment Cancelled RBC Morphology Cancelled Polychromasia Cancelled Hypochromasia Cancelled Poikilocytosis Cancelled Basophilic Stippling Cancelled Anisocytosis Cancelled Microcytosis Cancelled Macrocytosis Cancelled Spherocytes Cancelled Sickle Cells Cancelled Target Cells Cancelled Tear Drop Cells Cancelled Ovalocytes Cancelled Stomatocytes Cancelled [place] Bodies Cancelled Cly[place] Cells Cancelled Bite Cells Cancelled Crenated Cell Cancelled Acanthocytes (Spur) Cancelled Rouleaux Cancelled Schistocytes Cancelled PT INR APTT Sodium 136 Potassium 3.5 Chloride 104 Carbon Dioxide 23.0 Anion Gap 9 BUN 9 Creatinine 0.98 Estim Creat Clear Calc 86.88 Est GFR (MDRD) Af Amer 100 Est GFR (MDRD) Non-Af 82 BUN/Creatinine Ratio 9.2 L Glucose 151 H Lactic Acid Calcium 7.7 L Total Bilirubin 0.70 Direct Bilirubin AST 25 ALT 24 Alkaline Phosphatase 77 Ammonia Troponin I Total Protein 7.2 Albumin 2.9 L Globulin 4.3 H Albumin/Globulin Ratio 0.7 L Urine Color Urine Clarity Urine pH Ur Specific [place] Urine Protein Urine Glucose (UA) Urine Ketones Urine Occult Blood Urine Nitrite Urine Bilirubin Urine Urobilinogen Ur Leukocyte Esterase Urine RBC Urine WBC Ur Squamous Epith Cells Urine Bacteria Urine Mucus Urine Opiates Screen Urine Methadone Screen Ur Barbiturates Screen Ur Phencyclidine Scrn Ur Amphetamines Screen U Methamphetamin-MDMA U Benzodiazepines Scrn Urine Cocaine Screen U Cannabinoids Screen Ur Drug Screen Comment Ethyl Alcohol 05/13/20 05/13/20 04:45 04:45 WBC 36.0 H* Corrected WBC RBC 3.92 L Hgb 12.4 L Hct 37.3 L MCV 95.2 H MCH 31.6 MCHC 33.2 RDW Std Deviation 45.5 H RDW Coeff of Esteban 13.1 Plt Count 235 MPV 9.5 Immature Gran % (Auto) 1.700 H Neut % (Auto) 85.7 H Lymph % (Auto) 6.6 L [place] % (Auto) 5.8 Eos % (Auto) 0.0 Baso % (Auto) 0.2 Absolute Neuts (auto) 30.8 H Absolute Lymphs (auto) 2.37 Total Counted Neutrophils % (Manual) Band Neutrophils % Lymphocytes % (Manual) Monocytes % (Manual) Eosinophils % (Manual) Basophils % (Manual) Metamyelocytes % Myelocytes % Promyelocytes % Blast Cells % Plasma Cell % (Manual) Other Cells % Nucleated RBC % 0 Nucleated RBCs/100 WBC Differential Comment SCANNED Diff Path Review May foll Hypersegmented Neuts Atypical Lymphocytes Reactive Lymphocytes Smudge Cells Toxic Granulation Toxic Vacuolation Dohle Bodies Stacey Rods Platelet Estimate Plt Morphology Comment RBC Morphology Polychromasia Hypochromasia Poikilocytosis Basophilic Stippling Anisocytosis Microcytosis Macrocytosis Spherocytes Sickle Cells Target Cells Tear Drop Cells Ovalocytes Stomatocytes [place] Bodies [place] Cells Bite Cells Crenated Cell Acanthocytes (Spur) Rouleaux Schistocytes PT INR APTT Sodium 143 Potassium 3.5 Chloride 111 H Carbon Dioxide 26.0 Anion Gap 6 BUN 15 Creatinine 0.88 Estim Creat Clear Calc 96.76 Est GFR (MDRD) Af Amer 113 Est GFR (MDRD) Non-Af 94 BUN/Creatinine Ratio 17.1 Glucose 111 H Lactic Acid Calcium 7.9 L Total Bilirubin Direct Bilirubin AST ALT Alkaline Phosphatase Ammonia Troponin I Total Protein Albumin Globulin Albumin/Globulin Ratio Urine Color Urine Clarity Urine pH Ur Specific [place] Urine Protein Urine Glucose (UA) Urine Ketones Urine Occult Blood Urine Nitrite Urine Bilirubin Urine Urobilinogen Ur Leukocyte Esterase Urine RBC Urine WBC Ur Squamous Epith Cells Urine Bacteria Urine Mucus Urine Opiates Screen Urine Methadone Screen Ur Barbiturates Screen Ur Phencyclidine Scrn Ur Amphetamines Screen U Methamphetamin-MDMA U Benzodiazepines Scrn Urine Cocaine Screen U Cannabinoids Screen Ur Drug Screen Comment Ethyl Alcohol Microbiology 05/11/20 20:56 Blood Culture (Wb) - Left Hand Blood Culture - Preliminary 05/12/20 09:45 Abs - Ear Gram Stain - Final 05/11/20 18:05 Blood Culture (Wb) - Anticubital Right Bacteria Detection (PCR) - Final Streptococcus pneumoniae 05/11/20 18:05 Blood Culture (Wb) - Anticubital Right Blood Culture - Preliminary 05/11/20 19:15 Stool Stool Occult Blood (JILLIAN) - Final 05/11/20 18:40 Mucosa - Nasopharyngeal SARS-CoV-2 Antigen (Rapid) - Final Clinical Impression(s) from Imaging Studies Brain MRI 05/12/20 01:51 IMPRESSION: Involutional changes of the brain, as described above. Acute on chronic sinusitis and left mastoiditis. Electronically Signed: Yifan Corbett MD at 12:11 EST Tel , Service support , Medical Necessity - Tobacco Use Smoking Status: Former smoker Assessment/Plan All Active Problems Infectious encephalopathy (Acute) Mastoiditis (Acute) Bacteremia (Acute) RECOMMENDATIONS: 1. Continue infectious disease recommendations 2. Continue antibiotics at meningitic doses 3. Monitor for withdrawal symptoms 4. Okay to leave the intensive care unit from my perspective 5. Hemodynamically stable on room air. Will sign off from a critical care perspective IMPRESSIONS: 1. Severe sepsis Clinical suspicion for a left mastoiditis leading to current presentation. Patient is growing pneumococcus from his blood. This would be consistent with a otitis etiology. Patient has refused LP, so continuing antibiotics at a meningitic dose appears to be appropriate. Infectious disease is following. Patient has remained hemodynamically stable. Mentation is much more appropriate today compared to previous. Likely okay to leave the intensive care unit 2. Hematemesis in the setting of possible alcoholism Patient reportedly had hematemesis in the ER. Unclear if patient has a history of varices. Patient does have adequate platelet count indicating a lower risk of varices. If patient were to develop repeat hematemesis, transfer to a tertiary center for GI evaluation may be necessary. We will also need to monitor for withdrawal symptoms. Would hold off on any phenobarbital as neurologic status will need to be followed given concerns for possible meningitis. 3. Poor history/right parapelvic cyst/alcohol/history of smoking Complicates care, management, recovery and prognosis. Will attempt to obtain more information through the day. Patient is currently a full code. Patient did reiterate that he is a full code and does not want to from this. Inpatient E&M: 13638 Subs Hosp L3
--- NOTE | 2020-05-13 07:58 | PCM.PN.HOSP ---
Patient Problems: Active and Suspected Problems Infectious encephalopathy (Acute) Mastoiditis (Acute) Bacteremia (Acute) Reason for Visit: Follow-up on acute infectious encephalopathy/bacterial meningitis Subjective: Patient was seen and examined. He is much improved. Complains of neck pain. Still febrile. Objective: Physical exam: General: Alert, oriented x3, looks unwell, not pale, no jaundice HEENT: Atraumatic Neck: No Nodes, Trachea Midline Lungs: Clear to auscultation, Normal air movement Cardiovascular: Normal S1, Normal S2, Tachycardic Abdomen: Bowel Sounds Present, Soft, Non Tender Extremities: No edema, Capillary Refill Less than 3 Seconds Skin: No rashes Musculoskeletal: Tenderness on eliciting a Kernig and Brudzinski sign Neurological: not cooperative Psych/Mental Status: Flat affect Vitals/I&O's: Vital Signs Temp Pulse Resp BP Pulse Ox 101.2 F H 78 17 148/92 H 94 05/13/20 06:00 05/13/20 07:27 05/13/20 06:00 05/13/20 06:00 05/13/20 06:00 Oxygen Flow Rate (L/min) 2 Oxygen Delivery Method Room Air Weight: 84.096 kg Body Mass Index (BMI) 25.1 Finger Stick Blood Glucose 98 Intake and Output for Last 24 Hours 05/11/20 05/12/20 05/13/20 23:59 23:59 23:59 Intake Total 3050 / 3050 3866.53 / 3866.53 1000 / 1000 Output Total 2725 / 2825 575 / 575 Balance 3050 / 3050 1141.53 / 1041.53 425 / 425 Microbiology Past 72 Hours 05/11/20 20:56 Blood Culture (Wb) - Left Hand Blood Culture - Preliminary 05/12/20 09:45 Abs - Ear Gram Stain - Final 05/11/20 18:05 Blood Culture (Wb) - Anticubital Right Bacteria Detection (PCR) - Final Streptococcus pneumoniae 05/11/20 18:05 Blood Culture (Wb) - Anticubital Right Blood Culture - Preliminary 05/11/20 19:15 Stool Stool Occult Blood (JILLIAN) - Final 05/11/20 18:40 Mucosa - Nasopharyngeal SARS-CoV-2 Antigen (Rapid) - Final Laboratory Results 05/12/20 03:15: Diff Path Review Reviewed 05/13/20 04:45: WBC 36.0 H*, RBC 3.92 L, Hgb 12.4 L, Hct 37.3 L, MCV 95.2 H, MCH 31.6, MCHC 33.2, RDW Std Deviation 45.5 H, RDW Coeff of Esteban 13.1, Plt Count 235, MPV 9.5, Immature Gran % (Auto) 1.700 H, Neut % (Auto) 85.7 H, Lymph % (Auto) 6.6 L, [place] % (Auto) 5.8, Eos % (Auto) 0.0, Baso % (Auto) 0.2, Absolute Neuts (auto) 30.8 H, Absolute Lymphs (auto) 2.37, Nucleated RBC % 0, Differential Comment SCANNED, Diff Path Review July05/13/20 04:45: Sodium 143, Potassium 3.5, Chloride 111 H, Carbon Dioxide 26.0, Anion Gap 6, BUN 15, Creatinine 0.88, Estim Creat Clear Calc 96.76, Est GFR (MDRD) Af Amer 113, Est GFR (MDRD) Non-Af 94, BUN/Creatinine Ratio 17.1, Glucose 111 H, Calcium 7.9 L Current Medications Acetaminophen (Acetaminophen 650 Mg Suppository) 650 mg RC Q4H PRN PRN PRN Reason: Pain Score 1-10/Temp > 100.7 F Last Admin: 05/12/20 22:42 Dose: 650 mg Documented by: Acetaminophen (Acetaminophen 325 Mg Tablet) 650 mg PO Q4H PRN PRN PRN Reason: Pain 1-10 or Fever Last Admin: 05/13/20 06:53 Dose: 650 mg Documented by: Vancomycin IV Pharmacy to Dose (1 ea/ Sodium Chloride) 500 mls @ 250 mls/hr IV PRN PRN; Protocol PRN Reason: Rx to Dose Ceftriaxone Sodium 2 gm/ (Sodium Chloride) 50 mls @ 100 mls/hr IV Q12 OMAR Last Infusion: 05/12/20 22:36 Dose: Infused Documented by: Vancomycin HCl 1,750 mg/ (Sodium Chloride) 535 mls @ 250 mls/hr IV Q12H OMAR Last Admin: 05/12/20 22:37 Dose: 250 mls/hr Documented by: Sodium Chloride () 250 mls @ 15 mls/hr IV .[id number] PRN PRN Reason: Saline Flush Sodium Chloride () 250 mls @ 15 mls/hr IV .[id number] PRN PRN Reason: Additional IVPB Infusion Sodium Chloride () 1,000 mls @ 100 mls/hr IV .Q10H [facility] Last Admin: 05/13/20 06:04 Dose: 100 mls/hr Documented by: Pantoprazole Sodium 40 mg/ (Sodium Chloride) 110 mls @ 330 mls/hr IV Q12 [facility] Last Infusion: 05/12/20 22:06 Dose: Infused Documented by: Thiamine HCl 200 mg/ Sodium (Chloride) 52 mls @ 200 mls/hr IV DAILY [facility] Last Infusion: 05/12/20 03:17 Dose: Infused Documented by: Folic Acid 1 mg/ Sodium (Chloride) 50.2 mls @ 200 mls/hr IV DAILY [facility] Last Infusion: 05/12/20 02:59 Dose: Infused Documented by: Labetalol HCl (Labetalol (Prefilled) 20 Mg/4 Ml) 10 mg IV Q6H PRN PRN PRN Reason: SBP > 160; OR DBP > 120 Methylprednisolone (Methylprednisolone 40 Mg/Ml Vial) 40 mg IV DAILY [facility] Last Admin: 05/12/20 12:37 Dose: 40 mg Documented by: Ondansetron HCl (Ondansetron 4 Mg/2 Ml Vial) 4 mg IV Q8H PRN PRN PRN Reason: NAUSEA/VOMITING Last Admin: 05/12/20 05:42 Dose: 4 mg Documented by: Sodium Chloride (0.9% Saline Lock 10 Ml Syringe) 10 - 40 ml IV UD PRN PRN Reason: SALINE FLUSH Last Admin: 05/12/20 05:43 Dose: 10 ml Documented by: STROKE Vital Signs/Narrative: Vital Signs Temp Pulse Resp BP Pulse Ox 05/13/20 07:27 78 05/13/20 06:00 101.2 F H 97 17 148/92 H 94 05/13/20 05:00 101.2 F H 105 H 22 H 144/93 H 97 05/13/20 04:00 100.3 F H 69 22 H 138/93 H 96 Medical Necessity - Tobacco Use Smoking Status: Former smoker Assessment/Plan All Active Problems Infectious encephalopathy (Acute) Mastoiditis (Acute) Bacteremia (Acute) 1. Sepsis secondary to bacterial meningitis/probable pyelonephritis, improving WBC farhana elevated at 36.0, still febrile, blood cultures growing strep pneumo. Patient refused spinal tap; MRI of the brain is unremarkable except for acute on chronic sinusitis and left mastoiditis Urinalysis not suggestive of UTI; CT of the abdomen and pelvis suggestive of cystitis/perinephric stranding Infectious disease consulted; new IV vancomycin, ceftriaxone and Solu-Medrol. Acyclovir has been discontinued Follow-up on blood and urine cultures 2. Strep pneumo bacteremia likely secondary to ear infection Continue on IV antibiotics, ID following 3. Acute staph aureus otitis media Continue on IV vancomycin 3. Acute infectious encephalopathy likely related to the above, resolving Continue to monitor 4. Hypokalemia, resolved, recheck in a.m. 5. Chronic alcohol use, will continue to monitor for withdrawal Continue Thiamine and folic acid 6. Depression, recent social issues with guardianship of granddaughter Hold off on start of any antidepressants for a day or 2 until the acute events are stable 7. DVT PPx- Lovenox SC Inpatient E&M: [id number] [facility] Hosp L3
[2020-05-13 08:24] LABS: AST(SGOT) 26 U/L (15-37); Alanine Aminotransfer ALT/SGPT 23 U/L (16-61); Albumin, Serum 2.5 g/dL (3.2-5.0); Alkaline Phosphatase 67 U/L (45-117); Bilirubin, Direct 0.18 mg/dL (0.00-0.30); Globulin 4.4 g/dL (2.2-4.2); Protein, Total 6.9 g/dL (6.4-8.2)
[2020-05-13] MEDS: 0.9% Saline Lock 10 ML Syringe IV (10:21)
--- NOTE | 2020-05-13 11:42 | PCM.RX.CS ---
Consult Pharmacy has been consulted to manage selected antiobiotic: Vancomycin Type of Consult: Follow-up Suspected Infection: Sepsis, Bacteremia, Meningitis Prior Doses of Antibiotics Received/Current Regimen: current regimen is 1750mg q12h. received x1 dose of 2000mg before that Labs: Sodium 143 mmol/L (136-145) 05/13/20 04:45 Potassium 3.5 mmol/L (3.5-5.1) 05/13/20 04:45 Chloride 111 mmol/L (98-107) H 05/13/20 04:45 Carbon Dioxide 26.0 mmol/L (21.0-32.0) 05/13/20 04:45 Anion Gap 6 (5-15) 05/13/20 04:45 BUN 15 mg/dL (7-18) 05/13/20 04:45 Creatinine 0.88 mg/dL (0.70-1.30) 05/13/20 04:45 Est GFR (MDRD) Af Amer 113 mL/min (>60) 05/13/20 04:45 Est GFR (MDRD) Non-Af 94 mL/min (>60) 05/13/20 04:45 BUN/Creatinine Ratio 17.1 RATIO (10-20) 05/13/20 04:45 Glucose 111 mg/dL (74-106) H 05/13/20 04:45 Vancomycin Trough 15.0 ug/mL (5.0-15.0) 05/13/20 10:10 Microbiology: Microbiology 05/12/20 09:45 Abs - Ear Gram Stain - Final 05/12/20 09:45 Abs - Ear Ear Culture - Preliminary Staphylococcus aureus 05/11/20 20:56 Blood Culture (Wb) - Left Hand Blood Culture - Final Streptococcus pneumoniae 05/11/20 18:05 Blood Culture (Wb) - Anticubital Right Bacteria Detection (PCR) - Final Streptococcus pneumoniae 05/11/20 18:05 Blood Culture (Wb) - Anticubital Right Blood Culture - Preliminary Streptococcus pneumoniae 05/11/20 19:15 Stool Stool Occult Blood (JILLIAN) - Final 05/11/20 18:40 Mucosa - Nasopharyngeal SARS-CoV-2 Antigen (Rapid) - Final Weight used for dosin kg Estimated Creatinine Clearance: 97ml/min Goal Trough: 15-20 mcg/mL Pharmacy Plan for Drug Dosing: Trough drawn before this morning's dose (drawn 11.5 hours after the previous dose) came back as 15.0. This is within goal range of 15-20 so will keep current dose of 1750mg q12h. Will check the trough again in a couple days to make sure it stays within the goal range. Pharmacy Service will continue to monitor and adjust dosing as required. Follow-Up Labs: Trough Vancomycin Labs to be done on [date and time ordered]: 05/15/20 09:30
--- NOTE | 2020-05-13 12:23 | CASEMGMT ---
Addendum entered by Nayla Santiago 05/13/20 13:57: SW did talk with patient about his alcohol use. He said he has not been drinking much. He said if he goes to a friend's home he may have a beer. SW asked him if he had an alcohol problem in the past. He said about 4 years ago. SW also asked patient if he ever had a history of suicide thoughts or attempt. He denied this. YIFAN did take a list of counselors into patient's room. SW asked patient if he needed anything or if he had talked with friends or family. He said he has not as he does not know how to call out and he doesn't know phone numbers. YIFAN obtained patient's demographics sheet and wrote down the names and phone numbers that [facility] has. SW gave this to patient and also wrote down to push 66 and then the phone number. He thanked YIFAN. Nayla HERNANDEZ Original Note: YIFAN met with patient. Introduced self and role at [facility]. SW asked patient about his reason for admission. He confirmed he was upset about the judgement in court. He wanted custody of his granddaughter and he did not get it. He said he went home and took a nap. He denies taking anything to harm himself. He said, I'm not stupid. He said my goal is to be there for my granddaughter. Her name is Ike. He said he had her last September for several months. He said [facility] found some allegations against him from 33 years ago and they are holding this against me. YIFAN asked if he has any thoughts of suicide or harming himself. He said, No. That isn't fair to anyone else and that is the coward way out. YIFAN asked him if he would like counseling resources. He declined stating he feels he will be fine. YIFAN spoke with him a bit more and listened to him tell his story. He thanked YIFAN for visiting with him. YIFAN will print a list of in network counselors for patient and give it to him just in case he changes his mind. Nayla HERNANDEZ
--- NOTE | 2020-05-13 14:46 | PCM.PN.ID ---
Patient Problems: Active and Suspected Problems Infectious encephalopathy (Acute) Mastoiditis (Acute) Bacteremia (Acute) Subjective: Feeling better, fever and neck pain/ROM improved. - Physical Exam Vitals/I&O's: Vital Signs Temp Pulse Resp BP Pulse Ox 98.0 F 72 18 140/74 H 92 05/13/20 09:52 05/13/20 09:52 05/13/20 09:52 05/13/20 09:52 05/13/20 09:52 Oxygen Flow Rate (L/min) 2 Oxygen Delivery Method Room Air Weight: 84.096 kg Body Mass Index (BMI) 25.1 Finger Stick Blood Glucose 98 Intake and Output for Last 24 Hours 05/11/20 05/12/20 05/13/20 23:59 23:59 23:59 Intake Total 3050 / 3050 3866.53 / 3866.53 1797.2 / 1797.2 Output Total 2725 / 2825 1025 / 1025 Balance 3050 / 3050 1141.53 / 1041.53 772.2 / 772.2 General: Alert, Cooperative Neck: - - better ROM Lungs: Clear to auscultation, Normal air movement Cardiovascular: Regular rate, Regular Rhythm Abdomen: Soft, Non Tender, Non-Distended Skin: No rashes Microbiology Past 72 Hours 05/12/20 09:45 Abs - Ear Gram Stain - Final 05/12/20 09:45 Abs - Ear Ear Culture - Preliminary Staphylococcus aureus 05/11/20 20:56 Blood Culture (Wb) - Left Hand Blood Culture - Final Streptococcus pneumoniae 05/11/20 18:05 Blood Culture (Wb) - Anticubital Right Bacteria Detection (PCR) - Final Streptococcus pneumoniae 05/11/20 18:05 Blood Culture (Wb) - Anticubital Right Blood Culture - Preliminary Streptococcus pneumoniae 05/11/20 19:15 Stool Stool Occult Blood (JILLIAN) - Final 05/11/20 18:40 Mucosa - Nasopharyngeal SARS-CoV-2 Antigen (Rapid) - Final Laboratory Results 05/13/20 04:45: WBC 36.0 H*, RBC 3.92 L, Hgb 12.4 L, Hct 37.3 L, MCV 95.2 H, MCH 31.6, MCHC 33.2, RDW Std Deviation 45.5 H, RDW Coeff of Esteban 13.1, Plt Count 235, MPV 9.5, Immature Gran % (Auto) 1.700 H, Neut % (Auto) 85.7 H, Lymph % (Auto) 6.6 L, [place] % (Auto) 5.8, Eos % (Auto) 0.0, Baso % (Auto) 0.2, Absolute Neuts (auto) 30.8 H, Absolute Lymphs (auto) 2.37, Nucleated RBC % 0, Differential Comment SCANNED, Diff Path Review July05/13/20 04:45: Sodium 143, Potassium 3.5, Chloride 111 H, Carbon Dioxide 26.0, Anion Gap 6, BUN 15, Creatinine 0.88, Estim Creat Clear Calc 96.76, Est GFR (MDRD) Af Amer 113, Est GFR (MDRD) Non-Af 94, BUN/Creatinine Ratio 17.1, Glucose 111 H, Calcium 7.9 L 05/13/20 04:45: Total Bilirubin 0.40, Direct Bilirubin 0.18, AST 26, ALT 23, Alkaline Phosphatase 67, Total Protein 6.9, Albumin 2.5 L, Globulin 4.4 H 05/13/20 10:10: Vancomycin Trough 15.0 Current Medications Acetaminophen (Acetaminophen 650 Mg Suppository) 650 mg RC Q4H PRN PRN PRN Reason: Pain Score 1-10/Temp > 100.7 F Last Admin: 05/12/20 22:42 Dose: 650 mg Documented by: Acetaminophen (Acetaminophen 325 Mg Tablet) 650 mg PO Q4H PRN PRN PRN Reason: Pain 1-10 or Fever Last Admin: 05/13/20 06:53 Dose: 650 mg Documented by: Vancomycin IV Pharmacy to Dose (1 ea/ Sodium Chloride) 500 mls @ 250 mls/hr IV PRN PRN; Protocol PRN Reason: Rx to Dose Ceftriaxone Sodium 2 gm/ (Sodium Chloride) 50 mls @ 100 mls/hr IV Q12 [facility] Last Infusion: 05/13/20 11:36 Dose: Infused Documented by: Vancomycin HCl 1,750 mg/ (Sodium Chloride) 535 mls @ 250 mls/hr IV Q12H [facility] Last Admin: 05/13/20 11:34 Dose: 250 mls/hr Documented by: Sodium Chloride () 250 mls @ 15 mls/hr IV .[id number] PRN PRN Reason: Saline Flush Sodium Chloride () 250 mls @ 15 mls/hr IV .[id number] PRN PRN Reason: Additional IVPB Infusion Sodium Chloride () 1,000 mls @ 100 mls/hr IV .Q10H [facility] Last Admin: 05/13/20 06:04 Dose: 100 mls/hr Documented by: Pantoprazole Sodium 40 mg/ (Sodium Chloride) 110 mls @ 330 mls/hr IV Q12 [facility] Last Infusion: 05/13/20 11:04 Dose: Infused Documented by: Thiamine HCl 200 mg/ Sodium (Chloride) 52 mls @ 200 mls/hr IV DAILY [facility] Last Infusion: 05/13/20 10:45 Dose: Infused Documented by: Folic Acid 1 mg/ Sodium (Chloride) 50.2 mls @ 200 mls/hr IV DAILY [facility] Last Infusion: 05/13/20 10:20 Dose: Infused Documented by: Labetalol HCl (Labetalol (Prefilled) 20 Mg/4 Ml) 10 mg IV Q6H PRN PRN PRN Reason: SBP > 160; OR DBP > 120 Methylprednisolone (Methylprednisolone 40 Mg/Ml Vial) 40 mg IV DAILY [facility] Last Admin: 05/13/20 09:59 Dose: 40 mg Documented by: Ondansetron HCl (Ondansetron 4 Mg/2 Ml Vial) 4 mg IV Q8H PRN PRN PRN Reason: NAUSEA/VOMITING Last Admin: 05/12/20 05:42 Dose: 4 mg Documented by: Sodium Chloride (0.9% Saline Lock 10 Ml Syringe) 10 - 40 ml IV UD PRN PRN Reason: SALINE FLUSH Last Admin: 05/13/20 10:21 Dose: 10 ml Documented by: Medical Necessity - Tobacco Use Smoking Status: Former smoker Route of nutrition/ use of supplements: [] Nutritional Intake: [] IV Site: [] Rutledge Catheter: [] - Assessment/Plan Antibiotics: [] Assessment/Plan: [] Active and Suspected Problems Infectious encephalopathy (Acute) Mastoiditis (Acute) sepsis with bacterial meningitis and strep pneumo bacteremia - likely source is L ear infection. Mental status rapidly improved since admit. Fever and neck pain improved. L ear drainage cx showing staph aureus. Cont vanc and ceftriaxone. TTE showed no veg. Will follow
[2020-05-13] MEDS: Labetalol (Prefilled) 20 MG/4 ML 10 MG IV (15:27)
[2020-05-13] MEDS: Enoxaparin 40 MG/0.4 ML Syringe SC (21:22)
--- NOTE | 2020-05-13 21:23 | NURSING ---
pt states it is okay to give information to Bella lanier
[2020-05-14] VITALS (10 sets, daily range): BP systolic 133–155; BP diastolic 77–100; PULSE 64–75; RESP 18–26; TEMP 36.8–37.4; O2SAT 92–96
[2020-05-14] MEDS: 0.9% Saline Lock 10 ML Syringe IV ×3 (03:28→21:37)
[2020-05-14] MEDS: Acetaminophen 325 MG Tablet 650 MG PO ×3 (05:43→16:17)
[2020-05-14] MEDS: 0.9% Normal Saline 1,000 ML 100 ML IV (05:44)
[2020-05-14 08:02] LABS: Absolute Lymphocyte Count 2.01 X10^3/uL (0.83-4.51); Absolute Neutrophil Count 20.2 X10^3/uL (2.0-7.7); Basophil# 0.04 X10^3/uL; Basophil% 0.2 % (0-1); Hematocrit 33.1 % (40-54); Hemoglobin 10.8 g/dL (13.0-16.5); Lymphocyte # 2.01 X10^3/ul (4.0); Lymphocyte % 8.4 % (19-41); Mean Corp Hgb Conc 32.6 g/dL (32-36); Mean Corpuscular Volume 95.1 fL (80-94); Mean Platelet Vol. 10.3 fl (6.2-12.0); Monocyte# 1.31 X10^3/uL; Monocyte% 5.5 % (0-10); NRBC Flagged by Analyzer 0 % (0-5); Neutrophil # 20.15 X10^3/uL (2.7-7.7); Neutrophil % 84.3 % (47-70); POSITIVE DIFFERENTIAL YES; Platelet Count 223 K/mm3 (150-450); RBC Distribution Width CV 13.3 % (11.6-14.6); RBC Distribution Width SD 45.9 fl (35.1-43.9); Red Blood Count 3.48 M/mm3 (4.6-6.2); White Blood Count 23.9 K/mm3 (4.4-11.0)
[2020-05-14 08:06] LABS: Differential Indicated SCAN CRITERIA MET
[2020-05-14 08:22] LABS: ALB/GLOB Ratio 0.5 RATIO (0.9-2.4); AST(SGOT) 16 U/L (15-37); Alanine Aminotransfer ALT/SGPT 18 U/L (16-61); Albumin, Serum 2.1 g/dL (3.2-5.0); Alkaline Phosphatase 61 U/L (45-117); Anion Gap 7 (5-15); BUN 15 mg/dL (7-18); BUN/Creat Ratio 20.5 RATIO (10-20); Calcium,Total 7.7 mg/dL (8.5-10.1); Chloride 113 mmol/L (98-107); Creatinine, Serum 0.73 mg/dL (0.70-1.30); EST Glomerular Filtration Rate 116 mL/min (>60); Est Glom Filt Rate - Afr Amer 140 mL/min (>60); Estimated Creatinine Clearance 116.64 ml/min; Glucose 113 mg/dL (74-106); Potassium 3.2 mmol/L (3.5-5.1); Protein, Total 6.1 g/dL (6.4-8.2); Sodium Level 142 mmol/L (136-145)
[2020-05-14] MEDS: Enoxaparin 40 MG/0.4 ML Syringe SC (08:31)
[2020-05-14 08:56] LABS: Differential Comment SCANNED
--- NOTE | 2020-05-14 11:03 | PCM.PN.HOSP ---
Patient Problems: Active and Suspected Problems Infectious encephalopathy (Acute) Mastoiditis (Acute) Bacteremia (Acute) Reason for Visit: Follow-up on acute infectious encephalopathy/bacterial meningitis Subjective: Patient was seen and examined. He feels improved. Still has neck pain and left posterior ear pain. Fevers appear improved Objective: Physical exam: General: Alert, oriented x3, looks improved, not pale, no jaundice HEENT: Atraumatic, tenderness over left posterior ear/neck Neck: No Nodes, Trachea Midline Lungs: Clear to auscultation, Normal air movement Cardiovascular: Normal S1, Normal S2, Tachycardic Abdomen: Bowel Sounds Present, Soft, Non Tender Extremities: No edema, Capillary Refill Less than 3 Seconds Skin: No rashes Musculoskeletal: Tenderness on eliciting a Kernig and Brudzinski sign, improving Neurological: not cooperative Psych/Mental Status: Flat affect Vitals/I&O's: Vital Signs Temp Pulse Resp BP Pulse Ox 98.4 F 64 18 147/89 H 92 05/14/20 10:22 05/14/20 10:22 05/14/20 10:22 05/14/20 10:22 05/14/20 10:22 Oxygen Flow Rate (L/min) 2 Oxygen Delivery Method Room Air Weight: 83.5 kg Body Mass Index (BMI) 25.1 Finger Stick Blood Glucose 98 Intake and Output for Last 24 Hours 05/12/20 05/13/20 05/14/20 23:59 23:59 23:59 Intake Total 3866.53 / 3866.53 3642.2 / 3642.2 1895.2 / 1895.2 Output Total 2725 / 2825 1025 / 1025 Balance 1141.53 / 1041.53 2617.2 / 2617.2 1895.2 / 1895.2 Microbiology Past 72 Hours 05/12/20 10:25 Blood Culture (Wb) - Anticubital Right Blood Culture - Preliminary No growth in 48 hours. 05/12/20 09:45 Abs - Ear Gram Stain - Final 05/12/20 09:45 Abs - Ear Ear Culture - Preliminary Staphylococcus aureus 05/12/20 09:45 Abs - Ear Anaerobic Culture - Preliminary Checking for anaerobes, further studies to follow. 05/11/20 18:05 Blood Culture (Wb) - Anticubital Right Bacteria Detection (PCR) - Final Streptococcus pneumoniae 05/11/20 18:05 Blood Culture (Wb) - Anticubital Right Blood Culture - Final Streptococcus pneumoniae 05/11/20 20:56 Blood Culture (Wb) - Left Hand Blood Culture - Final Streptococcus pneumoniae 05/11/20 19:15 Stool Stool Occult Blood (JILLIAN) - Final 05/11/20 18:40 Mucosa - Nasopharyngeal SARS-CoV-2 Antigen (Rapid) - Final Laboratory Results 05/14/20 07:05: WBC 23.9 H, RBC 3.48 L, Hgb 10.8 L, Hct 33.1 L, MCV 95.1 H, MCH 31.0, MCHC 32.6, RDW Std Deviation 45.9 H, RDW Coeff of Esteban 13.3, Plt Count 223, MPV 10.3, Immature Gran % (Auto) 1.600 H, Neut % (Auto) 84.3 H, Lymph % (Auto) 8.4 L, [place] % (Auto) 5.5, Eos % (Auto) 0.0, Baso % (Auto) 0.2, Absolute Neuts (auto) 20.2 H, Absolute Lymphs (auto) 2.01, Nucleated RBC % 0, Differential Comment SCANNED 05/14/20 07:05: Sodium 142, Potassium 3.2 L, Chloride 113 H, Carbon Dioxide 22.0, Anion Gap 7, BUN 15, Creatinine 0.73, Estim Creat Clear Calc 116.64, Est GFR (MDRD) Af Amer 140, Est GFR (MDRD) Non-Af 116, BUN/Creatinine Ratio 20.5 H, Glucose 113 H, Calcium 7.7 L, Total Bilirubin 0.50, AST 16, ALT 18, Alkaline Phosphatase 61, Total Protein 6.1 L, Albumin 2.1 L, Globulin 4.0, Albumin/Globulin Ratio 0.5 L Current Medications Acetaminophen (Acetaminophen 650 Mg Suppository) 650 mg RC Q4H PRN PRN PRN Reason: Pain Score 1-10/Temp > 100.7 F Last Admin: 05/12/20 22:42 Dose: 650 mg Documented by: Acetaminophen (Acetaminophen 325 Mg Tablet) 650 mg PO Q4H PRN PRN PRN Reason: Pain 1-10 or Fever Last Admin: 05/14/20 05:43 Dose: 650 mg Documented by: Enoxaparin Sodium (Enoxaparin 40 Mg/0.4 Ml Syringe) 40 mg SC DAILY [facility] Last Admin: 05/14/20 08:31 Dose: 40 mg Documented by: Folic Acid (Folic Acid 1 Mg Tablet) 1 mg PO DAILY@0800 [facility] Vancomycin IV Pharmacy to Dose (1 ea/ Sodium Chloride) 500 mls @ 250 mls/hr IV PRN PRN; Protocol PRN Reason: Rx to Dose Ceftriaxone Sodium 2 gm/ (Sodium Chloride) 50 mls @ 100 mls/hr IV Q12 [facility] Last Infusion: 05/14/20 10:00 Dose: Infused Documented by: Vancomycin HCl 1,750 mg/ (Sodium Chloride) 535 mls @ 250 mls/hr IV Q12H [facility] Last Infusion: 05/14/20 00:56 Dose: Infused Documented by: Sodium Chloride () 250 mls @ 15 mls/hr IV .[id number] PRN PRN Reason: Saline Flush Sodium Chloride () 250 mls @ 15 mls/hr IV .[id number] PRN PRN Reason: Additional IVPB Infusion Pantoprazole Sodium 40 mg/ (Sodium Chloride) 110 mls @ 330 mls/hr IV Q12 [facility] Last Infusion: 05/14/20 09:18 Dose: Infused Documented by: Labetalol HCl (Labetalol (Prefilled) 20 Mg/4 Ml) 10 mg IV Q6H PRN PRN PRN Reason: SBP > 160; OR DBP > 120 Last Admin: 05/13/20 15:27 Dose: 10 mg Documented by: Methylprednisolone (Methylprednisolone 40 Mg/Ml Vial) 40 mg IV DAILY [facility] Last Admin: 05/14/20 08:26 Dose: 40 mg Documented by: Ondansetron HCl (Ondansetron 4 Mg/2 Ml Vial) 4 mg IV Q8H PRN PRN PRN Reason: NAUSEA/VOMITING Last Admin: 05/12/20 05:42 Dose: 4 mg Documented by: Potassium Chloride (Potassium Chloride Oral Tablet 20 Meq) [facility] Stop: 05/14/20 17:01 Sodium Chloride (0.9% Saline Lock 10 Ml Syringe) 10 - 40 ml IV UD PRN PRN Reason: SALINE FLUSH Last Admin: 05/14/20 03:28 Dose: 10 ml Documented by: Thiamine HCl (Thiamine Hydrochloride 100 Mg Tablet) [facility] Vital Signs/Narrative: Vital Signs Temp Pulse Resp BP Pulse Ox 05/14/20 10:22 98.4 F 64 18 147/89 H 92 Medical Necessity - Tobacco Use Smoking Status: Former smoker Assessment/Plan All Active Problems Infectious encephalopathy (Acute) Mastoiditis (Acute) Bacteremia (Acute) 1. Sepsis secondary to bacterial meningitis/probable pyelonephritis, improving WBC improved to 23.9, blood cultures growing strep pneumo. Patient refused spinal tap; MRI of the brain is unremarkable except for acute on chronic sinusitis and left mastoiditis Urinalysis not suggestive of UTI; CT of the abdomen and pelvis suggestive of cystitis/perinephric stranding Infectious disease consulted; on IV vancomycin, ceftriaxone and Solu-Medrol. Follow-up on blood and urine cultures 2. Strep pneumo bacteremia likely secondary to ear infection Continue on IV antibiotics, ID following 3. Acute staph aureus otitis media Continue on IV vancomycin 3. Acute infectious encephalopathy likely related to the above, resolving Continue to monitor 4. Hypokalemia, replaced, recheck in a.m. 5. Chronic alcohol use, will continue to monitor for withdrawal Continue Thiamine and folic acid 6. Depression, recent social issues with guardianship of granddaughter, appears resolved 7. DVT PPx- Lovenox [place] Inpatient E&M: 77035 Subs Hosp L2
[2020-05-14] MEDS: Potassium Chloride Oral Tablet 20 MEQ 40 MEQ PO ×2 (11:07→16:18)
[2020-05-14 11:10] LABS: Magnesium 2.5 mg/dL (1.6-2.6)
--- NOTE | 2020-05-14 19:00 | NURSING ---
All documentation, medication administration, and patient care completed by Micaela Jarvis, Student nurse, done under the supervision of this RN.
[2020-05-15] VITALS (9 sets, daily range): BP systolic 139–158; BP diastolic 83–87; PULSE 55–72; RESP 16–20; TEMP 36.8–37.1; O2SAT 95–98
[2020-05-15] MEDS: Acetaminophen 325 MG Tablet 650 MG PO ×2 (00:45→15:34)
[2020-05-15 05:28] LABS: Absolute Lymphocyte Count 2.48 X10^3/uL (0.83-4.51); Absolute Neutrophil Count 13.8 X10^3/uL (2.0-7.7); Basophil# 0.08 X10^3/uL; Basophil% 0.4 % (0-1); Hematocrit 34.7 % (40-54); Hemoglobin 11.5 g/dL (13.0-16.5); Lymphocyte # 2.48 X10^3/ul (4.0); Lymphocyte % 13.7 % (19-41); Mean Corp Hgb Conc 33.1 g/dL (32-36); Mean Corpuscular Hgb 30.9 pg (27.0-32.0); Mean Corpuscular Volume 93.3 fL (80-94); Mean Platelet Vol. 10.3 fl (6.2-12.0); Monocyte# 1.19 X10^3/uL; Monocyte% 6.6 % (0-10); NRBC Flagged by Analyzer 0 % (0-5); Neutrophil # 13.79 X10^3/uL (2.7-7.7); Neutrophil % 76.4 % (47-70); Platelet Count 260 K/mm3 (150-450); RBC Distribution Width CV 13.2 % (11.6-14.6); RBC Distribution Width SD 44.9 fl (35.1-43.9); Red Blood Count 3.72 M/mm3 (4.6-6.2); White Blood Count 18.1 K/mm3 (4.4-11.0)
[2020-05-15 06:23] LABS: ALB/GLOB Ratio 0.5 RATIO (0.9-2.4); AST(SGOT) 24 U/L (15-37); Alanine Aminotransfer ALT/SGPT 24 U/L (16-61); Albumin, Serum 2.1 g/dL (3.2-5.0); Alkaline Phosphatase 67 U/L (45-117); Anion Gap 8 (5-15); BUN 16 mg/dL (7-18); BUN/Creat Ratio 21.4 RATIO (10-20); Calcium,Total 7.5 mg/dL (8.5-10.1); Chloride 110 mmol/L (98-107); Creatinine, Serum 0.75 mg/dL (0.70-1.30); EST Glomerular Filtration Rate 113 mL/min (>60); Est Glom Filt Rate - Afr Amer 137 mL/min (>60); Estimated Creatinine Clearance 113.53 ml/min; Glucose 126 mg/dL (74-106); Potassium 4.2 mmol/L (3.5-5.1); Protein, Total 6.1 g/dL (6.4-8.2); Sodium Level 140 mmol/L (136-145)
[2020-05-15] MEDS: 0.9% Saline Lock 10 ML Syringe IV (09:18)
[2020-05-15] MEDS: Enoxaparin 40 MG/0.4 ML Syringe SC (09:35)
[2020-05-15] MEDS: Thiamine Hydrochloride 100 MG Tablet PO (09:35)
[2020-05-15] MEDS: Folic Acid 1 MG Tablet PO (09:35)
[2020-05-15 10:06] LABS: Vancomycin, Trough Level 15.6 ug/mL (5.0-15.0)
--- NOTE | 2020-05-15 10:29 | PCM.RX.CS ---
Consult Pharmacy has been consulted to manage selected antiobiotic: Vancomycin Type of Consult: Follow-up Suspected Infection: Sepsis, Bacteremia, Meningitis Labs: Sodium 140 mmol/L (136-145) 05/15/20 05:03 Potassium 4.2 mmol/L (3.5-5.1) 05/15/20 05:03 Chloride 110 mmol/L (98-107) H 05/15/20 05:03 Carbon Dioxide 22.0 mmol/L (21.0-32.0) 05/15/20 05:03 Anion Gap 8 (5-15) 05/15/20 05:03 BUN 16 mg/dL (7-18) 05/15/20 05:03 Creatinine 0.75 mg/dL (0.70-1.30) 05/15/20 05:03 Est GFR (MDRD) Af Amer 137 mL/min (>60) 05/15/20 05:03 Est GFR (MDRD) Non-Af 113 mL/min (>60) 05/15/20 05:03 BUN/Creatinine Ratio 21.4 RATIO (10-20) H 05/15/20 05:03 Glucose 126 mg/dL (74-106) H 05/15/20 05:03 Vancomycin Trough 15.6 ug/mL (5.0-15.0) H 05/15/20 09:00 Microbiology: Microbiology 05/12/20 09:45 Abs - Ear Gram Stain - Final 05/12/20 09:45 Abs - Ear Ear Culture - Final Staphylococcus aureus Gram positive daniel Coag Negative Staph 05/12/20 09:45 Abs - Ear Anaerobic Culture - Preliminary Checking for anaerobes, further studies to follow. 05/12/20 10:25 Blood Culture (Wb) - Anticubital Right Blood Culture - Preliminary No growth in 48 hours. 05/11/20 18:05 Blood Culture (Wb) - Anticubital Right Bacteria Detection (PCR) - Final Streptococcus pneumoniae 05/11/20 18:05 Blood Culture (Wb) - Anticubital Right Blood Culture - Final Streptococcus pneumoniae 05/11/20 20:56 Blood Culture (Wb) - Left Hand Blood Culture - Final Streptococcus pneumoniae 05/11/20 19:15 Stool Stool Occult Blood (JILLIAN) - Final 05/11/20 18:40 Mucosa - Nasopharyngeal SARS-CoV-2 Antigen (Rapid) - Final Goal Trough: 15-20 mcg/mL Pharmacy Plan for Drug Dosing: VANCOMYCIN LEVEL RECEIVED Current Vancomycin Dose: 1750MG Q12H Number of Doses Received: 6 - 1750MG, 1 - 2000MG Vancomycin Level: 15.6 MG/DL Hours Since Last Dose: 11 Renal Function: SCR 0.75, CRCL 113 ML/MIN Renal Function Trend: STABLE Lab/Micro: STAPH IN EAR CX Vancomycin Plan/Comments: TROUGH WITHIN GOAL RANGE. CONTINUE CURRENT DOSING AND RE-CHECK TROUGH IN 4 DAYS. Pharmacy Service will continue to monitor and adjust dosing as required. Labs to be done on [date and time ordered]: 05/19/20 @ 0089
--- NOTE | 2020-05-15 13:48 | PCM.PN.HOSP ---
Patient Problems: Active and Suspected Problems Infectious encephalopathy (Acute) Mastoiditis (Acute) Bacteremia (Acute) Reason for Visit: Follow-up on acute infectious encephalopathy/bacterial meningitis Subjective: Patient seen and examined. No acute events. Denies any chest pain, dizziness, palpitations. Objective: Physical exam: General: Alert, oriented x3, looks improved, not pale, no jaundice HEENT: Atraumatic, tenderness over left posterior ear/neck Neck: No Nodes, Trachea Midline Lungs: Clear to auscultation, Normal air movement Cardiovascular: Normal S1, Normal S2, Tachycardic Abdomen: Bowel Sounds Present, Soft, Non Tender Extremities: No edema, Capillary Refill Less than 3 Seconds Skin: No rashes Musculoskeletal: Tenderness on eliciting a Kernig and Brudzinski sign, improving Neurological: not cooperative Psych/Mental Status: Flat affect Vitals/I&O's: Vital Signs Temp Pulse Resp BP Pulse Ox 98.3 F 61 18 140/86 H 95 05/15/20 11:00 05/15/20 11:00 05/15/20 11:00 05/15/20 11:00 05/15/20 11:00 Oxygen Flow Rate (L/min) 2 Oxygen Delivery Method Room Air Weight: 87.3 kg Body Mass Index (BMI) 25.1 Finger Stick Blood Glucose 98 Intake and Output for Last 24 Hours 05/13/20 05/14/20 05/15/20 23:59 23:59 23:59 Intake Total 3642.2 / 3642.2 5152.2 / 5152.2 1984 Output Total 1025 / 1025 3 / 3 Balance 2617.2 / 2617.2 5152.2 / 5152.2 1981 Microbiology Past 72 Hours 05/12/20 09:45 Abs - Ear Gram Stain - Final 05/12/20 09:45 Abs - Ear Ear Culture - Final Staphylococcus aureus Gram positive daniel Coag Negative Staph 05/12/20 09:45 Abs - Ear Anaerobic Culture - Preliminary Checking for anaerobes, further studies to follow. 05/12/20 10:25 Blood Culture (Wb) - Anticubital Right Blood Culture - Preliminary No growth in 48 hours. 05/11/20 18:05 Blood Culture (Wb) - Anticubital Right Bacteria Detection (PCR) - Final Streptococcus pneumoniae 05/11/20 18:05 Blood Culture (Wb) - Anticubital Right Blood Culture - Final Streptococcus pneumoniae 05/11/20 20:56 Blood Culture (Wb) - Left Hand Blood Culture - Final Streptococcus pneumoniae Laboratory Results 05/15/20 05:03: WBC 18.1 H, RBC 3.72 L, Hgb 11.5 L, Hct 34.7 L, MCV 93.3, MCH 30.9, MCHC 33.1, RDW Std Deviation 44.9 H, RDW Coeff of Esteban 13.2, Plt Count 260, MPV 10.3, Immature Gran % (Auto) 2.900 H, Neut % (Auto) 76.4 H, Lymph % (Auto) 13.7 L, [place] % (Auto) 6.6, Eos % (Auto) 0.0, Baso % (Auto) 0.4, Absolute Neuts (auto) 13.8 H, Absolute Lymphs (auto) 2.48, Nucleated RBC % 0 05/15/20 05:03: Sodium 140, Potassium 4.2, Chloride 110 H, Carbon Dioxide 22.0, Anion Gap 8, BUN 16, Creatinine 0.75, Estim Creat Clear Calc 113.53, Est GFR (MDRD) Af Amer 137, Est GFR (MDRD) Non-Af 113, BUN/Creatinine Ratio 21.4 H, Glucose 126 H, Calcium 7.5 L, Total Bilirubin 0.40, AST 24, ALT 24, Alkaline Phosphatase 67, Total Protein 6.1 L, Albumin 2.1 L, Globulin 4.0, Albumin/Globulin Ratio 0.5 L 05/15/20 09:00: Vancomycin Trough 15.6 H Current Medications Acetaminophen (Acetaminophen 650 Mg Suppository) 650 mg RC Q4H PRN PRN PRN Reason: Pain Score 1-10/Temp > 100.7 F Last Admin: 05/12/20 22:42 Dose: 650 mg Documented by: Acetaminophen (Acetaminophen 325 Mg Tablet) 650 mg PO Q4H PRN PRN PRN Reason: Pain 1-10 or Fever Last Admin: 05/15/20 00:45 Dose: 650 mg Documented by: Enoxaparin Sodium (Enoxaparin 40 Mg/0.4 Ml Syringe) 40 mg SC DAILY [facility] Last Admin: 05/15/20 09:35 Dose: 40 mg Documented by: Folic Acid (Folic Acid 1 Mg Tablet) 1 mg PO DAILY@0800 [facility] Last Admin: 05/15/20 09:35 Dose: 1 mg Documented by: Vancomycin IV Pharmacy to Dose (1 ea/ Sodium Chloride) 500 mls @ 250 mls/hr IV PRN PRN; Protocol PRN Reason: Rx to Dose Ceftriaxone Sodium 2 gm/ (Sodium Chloride) 50 mls @ 100 mls/hr IV Q12 [facility] Last Infusion: 05/15/20 11:15 Dose: Infused Documented by: Vancomycin HCl 1,750 mg/ (Sodium Chloride) 535 mls @ 250 mls/hr IV Q12H [facility] Last Admin: 05/15/20 11:14 Dose: 250 mls/hr Documented by: Sodium Chloride () 250 mls @ 15 mls/hr IV .[id number] PRN PRN Reason: Saline Flush Sodium Chloride () 250 mls @ 15 mls/hr IV .[id number] PRN PRN Reason: Additional IVPB Infusion Pantoprazole Sodium 40 mg/ (Sodium Chloride) 110 mls @ 330 mls/hr IV Q12 [facility] Last Infusion: 05/15/20 10:28 Dose: Infused Documented by: Labetalol HCl (Labetalol (Prefilled) 20 Mg/4 Ml) 10 mg IV Q6H PRN PRN PRN Reason: SBP > 160; OR DBP > 120 Last Admin: 05/13/20 15:27 Dose: 10 mg Documented by: Methylprednisolone (Methylprednisolone 40 Mg/Ml Vial) 40 mg IV DAILY [facility] Last Admin: 05/15/20 09:18 Dose: 40 mg Documented by: Ondansetron HCl (Ondansetron 4 Mg/2 Ml Vial) 4 mg IV Q8H PRN PRN PRN Reason: NAUSEA/VOMITING Last Admin: 05/12/20 05:42 Dose: 4 mg Documented by: Sodium Chloride (0.9% Saline Lock 10 Ml Syringe) 10 - 40 ml IV UD PRN PRN Reason: SALINE FLUSH Last Admin: 05/15/20 09:18 Dose: 10 ml Documented by: Thiamine HCl (Thiamine Hydrochloride 100 Mg Tablet) 100 mg PO DAILYCM [facility] Last Admin: 05/15/20 09:35 Dose: 100 mg Documented by: STROKE Vital Signs/Narrative: Vital Signs Temp Pulse Resp BP Pulse Ox 05/15/20 11:00 98.3 F 61 18 140/86 H 95 Medical Necessity - Tobacco Use Smoking Status: Former smoker Assessment/Plan All Active Problems Infectious encephalopathy (Acute) Mastoiditis (Acute) Bacteremia (Acute) 59 y/o male who was admitted with altered mental status 1. Sepsis secondary to bacterial meningitis/probable pyelonephritis, improving WBC improved to 18.1, blood cultures growing strep pneumo. Patient refused spinal tap; MRI of the brain is unremarkable except for acute on chronic sinusitis and left mastoiditis Urinalysis not suggestive of UTI; CT of the abdomen and pelvis suggestive of cystitis/perinephric stranding Infectious disease consulted; on IV vancomycin, ceftriaxone and Solu-Medrol. Follow-up on blood and urine cultures 2. Strep pneumo bacteremia likely secondary to ear infection Continue on IV antibiotics, ID following 3. Acute staph aureus otitis media Continue on IV vancomycin 4. Acute infectious encephalopathy likely related to the above, resolving 5. Hypokalemia, replaced 6. Chronic alcohol use, will continue to monitor for withdrawal Continue Thiamine and folic acid 7. Depression, recent social issues with guardianship of granddaughter, appears resolved 8. DVT PPx- Lovenox [place] Inpatient E&M: [id number] Subs Hosp L2
--- NOTE | 2020-05-15 17:17 | NURSING ---
All documentation, medication administration, and patient care completed by Micaela Jarvis, Student nurse, on 05/15 done under the supervision of this RN.
[2020-05-15] MEDS: Pantoprazole Sodium 40 MG Tablet PO (22:21)
[2020-05-16] VITALS (7 sets, daily range): BP systolic 137–149; BP diastolic 81–100; PULSE 51–67; RESP 16; TEMP 36.7–36.8; O2SAT 97–98
[2020-05-16 06:13] LABS: Differential Indicated MANUAL DIFF; Hematocrit 37.1 % (40-54); Hemoglobin 12.2 g/dL (13.0-16.5); Mean Corp Hgb Conc 32.9 g/dL (32-36); Mean Corpuscular Hgb 30.3 pg (27.0-32.0); Mean Corpuscular Volume 92.1 fL (80-94); Mean Platelet Vol. 10.1 fl (6.2-12.0); POSITIVE COUNT YES; POSITIVE DIFFERENTIAL YES; POSITIVE MORPHOLOGY YES; Platelet Count 339 K/mm3 (150-450); RBC Distribution Width CV 12.8 % (11.6-14.6); RBC Distribution Width SD 43.5 fl (35.1-43.9); Red Blood Count 4.03 M/mm3 (4.6-6.2); White Blood Count 18.4 K/mm3 (4.4-11.0)
[2020-05-16 06:42] LABS: ALB/GLOB Ratio 0.5 RATIO (0.9-2.4); AST(SGOT) 30 U/L (15-37); Alanine Aminotransfer ALT/SGPT 41 U/L (16-61); Albumin, Serum 2.1 g/dL (3.2-5.0); Alkaline Phosphatase 71 U/L (45-117); Anion Gap 6 (5-15); BUN 15 mg/dL (7-18); Calcium,Total 7.8 mg/dL (8.5-10.1); Chloride 105 mmol/L (98-107); Creatinine, Serum 0.62 mg/dL (0.70-1.30); EST Glomerular Filtration Rate 139 mL/min (>60); Est Glom Filt Rate - Afr Amer 168 mL/min (>60); Estimated Creatinine Clearance 137.33 ml/min; Glucose 103 mg/dL (74-106); Potassium 3.7 mmol/L (3.5-5.1); Protein, Total 6.1 g/dL (6.4-8.2); Sodium Level 136 mmol/L (136-145)
[2020-05-16 06:51] LABS: Absolute Lymphocyte Count 2.76 X10^3/uL (0.83-4.51); Absolute Neutrophil Count 13.6 X10^3/uL (2.0-7.7); Lymphocyte 15 % (19-41); Metamyelocyte 3 % (0-1); Monocyte 7 % (0-10); Myelocyte 1 (0-0); Neutrophil-Band 4 % (0-5); Neutrophil-Segmented 70 % (47-70); Total Cells Counted 100 (MANUAL DIFF)
[2020-05-16 06:52] LABS: Platelet Estimate ADEQUATE (ADEQ); Red Cell Morphology NORM C+C NORMAL (NORM C&C)
[2020-05-16] MEDS: Folic Acid 1 MG Tablet PO (08:16)
[2020-05-16] MEDS: Thiamine Hydrochloride 100 MG Tablet PO (08:16)
[2020-05-16] MEDS: Pantoprazole Sodium 40 MG Tablet PO (08:17)
[2020-05-16] MEDS: Enoxaparin 40 MG/0.4 ML Syringe SC (08:17)
[2020-05-16] MEDS: 0.9% Saline Lock 10 ML Syringe IV (09:39)
[2020-05-16 09:54] LABS: Pathologist Review Reviewed
--- NOTE | 2020-05-16 10:15 | CASEMGMT ---
TIFFANIE JOHNSON updated that pt will be dc'ing on IV antibiotics. Pt agreeable to [facility] for Infusion company and has no preference for HH agency. Pt denies need for list. Pt to learn infusion. Pt dtr is a nurse who may be able to help at times. Faxed [facility] referral for IV antibiotics and requested HHC to be set up through them. TIFFANIE JOHNSON to follow. Call to [facility] to update on referral that pt would like to be dc'd today if midline insertion and agency can be set up for today.
--- NOTE | 2020-05-16 10:49 | PN.ID_ITS ---
Patient Problems: Active and Suspected Problems Infectious encephalopathy (Acute) Mastoiditis (Acute) Bacteremia (Acute) Subjective: Feeling great, no fever, no neck pain. - Physical Exam Vitals/I&O's: Vital Signs Temp Pulse Resp BP Pulse Ox 98.1 F 60 16 149/89 H 98 05/16/20 10:07 05/16/20 10:07 05/16/20 10:07 05/16/20 10:07 05/16/20 10:07 Oxygen Flow Rate (L/min) 2 Oxygen Delivery Method Room Air Weight: 85.3 kg Body Mass Index (BMI) 25.1 Finger Stick Blood Glucose 98 Intake and Output for Last 24 Hours 05/14/20 05/15/20 05/16/20 23:59 23:59 23:59 Intake Total 5152.2 / 5152.2 3370 / 3370 200 / 200 Balance 5152.2 / 5152.2 3370 / 3370 200 / 200 General: Alert, Cooperative, No apparent distress Neck: Supple Lungs: Clear to auscultation, Normal air movement Cardiovascular: Regular rate, Regular Rhythm Abdomen: Soft, Non Tender, Non-Distended Skin: No rashes Microbiology Past 72 Hours 05/12/20 09:45 Abs - Ear Gram Stain - Final 05/12/20 09:45 Abs - Ear Ear Culture - Final Staphylococcus aureus Gram positive daniel Coag Negative Staph 05/12/20 09:45 Abs - Ear Anaerobic Culture - Final No anaerobic bacteria isolated. 05/12/20 10:25 Blood Culture (Wb) - Anticubital Right Blood Culture - Preliminary No growth in 48 hours. 05/11/20 18:05 Blood Culture (Wb) - Anticubital Right Bacteria Detection (PCR) - Final Streptococcus pneumoniae 05/11/20 18:05 Blood Culture (Wb) - Anticubital Right Blood Culture - Final Streptococcus pneumoniae 05/11/20 20:56 Blood Culture (Wb) - Left Hand Blood Culture - Final Streptococcus pneumoniae Laboratory Results 05/13/20 04:45: Diff Path Review Reviewed 05/16/20 05:40: WBC 18.4 H, RBC 4.03 L, Hgb 12.2 L, Hct 37.1 L, MCV 92.1, MCH 30.3, MCHC 32.9, RDW Std Deviation 43.5, RDW Coeff of Esteban 12.8, Plt Count 339, MPV 10.1, Neut % (Auto) Not Reportable, Absolute Neuts (auto) 13.6 H, Absolute Lymphs (auto) 2.76, Total Counted 100, Neutrophils % (Manual) 70, Band Neutrophils % 4, Lymphocytes % (Manual) 15 L, Monocytes % (Manual) 7, Met amyelocytes % 3 H, Myelocytes % 1 H, Diff Path Review July, Platelet Estimate ADEQUATE, RBC Morphology NORM C+C 05/16/20 05:40: Sodium 136, Potassium 3.7, Chloride 105, Carbon Dioxide 25.0, Anion Gap 6, BUN 15, Creatinine 0.62 L, Estim Creat Clear Calc 137.33, Est GFR (MDRD) Af Amer 168, Est GFR (MDRD) Non-Af 139, BUN/Creatinine Ratio 24.0 H, Glucose 103, Calcium 7.8 L, Total Bilirubin 0.30, AST 30, ALT 41, Alkaline Phosphatase 71, Total Protein 6.1 L, Albumin 2.1 L, Globulin 4.0, Albumin/Globulin Ratio 0.5 L Current Medications Acetaminophen (Acetaminophen 650 Mg Suppository) 650 mg RC Q4H PRN PRN PRN Reason: Pain Score 1-10/Temp > 100.7 F Last Admin: 05/12/20 22:42 Dose: 650 mg Documented by: Acetaminophen (Acetaminophen 325 Mg Tablet) 650 mg PO Q4H PRN PRN PRN Reason: Pain 1-10 or Fever Last Admin: 05/15/20 15:34 Dose: 650 mg Documented by: Enoxaparin Sodium (Enoxaparin 40 Mg/0.4 Ml Syringe) 40 mg SC DAILY [facility] Last Admin: 05/16/20 08:17 Dose: 40 mg Documented by: Folic Acid (Folic Acid 1 Mg Tablet) 1 mg PO DAILY@0800 [facility] Last Admin: 05/16/20 08:16 Dose: 1 mg Documented by: Ceftriaxone Sodium 2 gm/ (Sodium Chloride) 50 mls @ 100 mls/hr IV Q12 [facility] Last Infusion: 05/16/20 10:11 Dose: Infused Documented by: Sodium Chloride () 250 mls @ 15 mls/hr IV .[id number] PRN PRN Reason: Saline Flush Sodium Chloride () 250 mls @ 15 mls/hr IV .[id number] PRN PRN Reason: Additional IVPB Infusion Labetalol HCl (Labetalol (Prefilled) 20 Mg/4 Ml) 10 mg IV Q6H PRN PRN PRN Reason: SBP > 160; OR DBP > 120 Last Admin: 05/13/20 15:27 Dose: 10 mg Documented by: Ondansetron HCl (Ondansetron 4 Mg/2 Ml Vial) 4 mg IV Q8H PRN PRN PRN Reason: NAUSEA/VOMITING Last Admin: 05/12/20 05:42 Dose: 4 mg Documented by: Pantoprazole Sodium (Pantoprazole Sodium 40 Mg Tablet) 40 mg PO BID [facility] Last Admin: 05/16/20 08:17 Dose: 40 mg Documented by: Sodium Chloride (0.9% Saline Lock 10 Ml Syringe) 10 - 40 ml IV UD PRN PRN Reason: SALINE FLUSH Last Admin: 05/16/20 09:39 Dose: 10 ml Documented by: Thiamine HCl (Thiamine Hydrochloride 100 Mg Tablet) 100 mg PO DAILYCM [facility] Last Admin: 05/16/20 08:16 Dose: 100 mg Documented by: Medical Necessity - Tobacco Use Smoking Status: Former smoker Route of nutrition/ use of supplements: [] Nutritional Intake: [] IV Site: [] Rutledge Catheter: [] - Assessment/Plan Antibiotics: [] Assessment/Plan: [] Active and Suspected Problems Infectious encephalopathy (Acute) Mastoiditis (Acute) sepsis with bacterial meningitis and strep pneumo bacteremia - likely source is L ear infection. Mental status rapidly improved since admit. Fever and neck pain resolved. L ear drainage cx showing MSSA, GPR, CoNS. Stopped vanc, comp leted 4 days of solumedrol. Will order midline, plan on 10 days total ceftriaxone, stop date 05/21/20. Will follow as needed, d/w primary team
--- NOTE | 2020-05-16 12:01 | CASEMGMT ---
Addendum entered by Key Boudreaux 05/16/20 14:18: Per Ya at [facility], they can accept pt at this time and are able to do start of care tonight and per Aleena, pharmacist, Rocephin dose tonight can be given no earlier than 1900, Ya at [facility] aware, voices understanding. Rosa at [facility] updated to have med delivery prior to 1900 today, voices understanding. Pt updated on all by Jayde MORENO CM, voices understanding. Midline charting to be faxed by PCU staff to [facility] once obtained. Stacy MORENO CM Addendum entered by Key Boudreaux 05/16/20 13:34: Per Parisa in [facility], pt still has deductible to meet and each SN visit will be about $249. Pt only needs 5 days of Ceftriaxone q 12 hours at this time. Pt updated at this time and states ok with cost. Ya at [facility] aware and states will get back with this RN CM regarding acceptance. CM to follow. Midline to be placed around [phone] today. Stacy MORENO CM Original Note: Call from Roxie at [facility] and she states pt still has deductible to meet and it will be $125/day and $625 total. Roxie transferred to room to discuss with pt and then calls this RN ALEX back and states pt agreeable to cost. Call to Parisa at [facility] to see if they take [employer] insurance as this RN ALEX unable to find in-network on website at this time. Per Roxie, she sent out a couple referrals but she states sometimes they have difficulty staffing this area. CM to follow. Stacy MORENO CM
--- NOTE | 2020-05-16 14:32 | PCM.DC ---
- Discharge Diagnoses Current Active Problems: Current Active and Chronic Problems Infectious encephalopathy (Acute) Mastoiditis (Acute) Bacteremia (Acute) Hyperlipidemia (Chronic) Hypertension (Chronic) You will use the following diet at home:: No restrictions Your food should be the consistency of: Regular Your liquids should be the consistency of: Regular/Thin Discharge Activity: Return to Normal Activity Weight Bearing Status: Full weight bearing Allergies/Adverse Reactions: Allergies No Known Allergies Allergy (Verified 11/26/14 19:01) Medications to take at Discharge Ceftriaxone 2 gm IV Q12 5 Days #10 vial 05/16/20 Lisinopril [Zestril] 20 mg PO DAILY #30 tab 05/16/20 The following prescriptions were given: Ceftriaxone 2 gm IV Q12 5 Days #10 vial Prescription Printed Lisinopril [Zestril] 20 mg PO DAILY #30 tab Transmission Status: Received by [facility] Primary Care Physician: Martínez Peterson MD [Primary Care Provider] - Test Results: Test results from this visit will be discussed in further detail at your follow-up appointment, if applicable. Please Follow Up With: your primary care physician When: in two-three weeks
--- NOTE | 2020-05-16 14:57 | CASEMGMT ---
Provided pt list of local primary care physicians. He is aware he needs to establish with PCP. Pt denies further questions/concerns.
--- NOTE | 2020-05-16 15:19 | PHA.DC.MR ---
Pharmacy Service has performed discharge medication reconciliation for this patient. Home Medications Ceftriaxone 2 gm IV Q12 5 Days #10 vial 05/16/20 Lisinopril [Zestril] 20 mg PO DAILY #30 tab 05/16/20 The patient's discharge medication list was reviewed for discrepancies and discrepancies were resolved.
[2020-05-17 10:13] LABS: Pathologist Review Reviewed
--- NOTE | 2020-05-18 18:41 | DS.PCM_ITS ---
Discharge Date and Diagnosis - Problem List Patient Problems: Active and Suspected Problems Infectious encephalopathy (Acute) Mastoiditis (Acute) Bacteremia (Acute) Date of Admission: 05/11/20 Date of Discharge: 05/16/20 - Primary Discharge Diagnosis Acute Problems: Active Problems #1 sepsis secondary to bacterial meningitis from strep pneumoniae inner ear infection #2 strep pneumoniae bacteremia secondary to inner ear infection #3 left ear otitis media with methicillin sensitive staph aureus and strep pneumoniae #4 metabolic encephalopathy #5 hypokalemia #6 acute left mastoiditis Patient did not have pyelonephritis - Secondary Discharge Diagnosis Chronic Problems: Chronic Problems Hyperlipidemia (Chronic) Hypertension (Chronic) Hospital Course and Treatment Summary of Care Provided: The patient is a 59 year old M who was seen in the emergency room at [facility] after being brought in by squad due to altered mental status. Work-up in the emergency room included a CT of the head which showed evidence of mastoiditis and left inner ear infection, patient was noted to have a temperature of 103.7 degrees, CTA of the head and neck showed no acute findings. Cooling blanket was applied patient was given Tylenol, normal saline, blood cultures were obtained, Covid test was negative, chest x-ray showed atelectasis at the right lung base and the patient's white blood cell count was 24.9. Patient's potassium was low at 3.3. Patient was given IV Rocephin, vancomycin, and acyclovir for possible encephalitis versus meningitis, CT of the abdomen and pelvis was obtained which showed nonspecific perinephric stranding, some bladder wall thickening, moderate right sided renal cyst. Patient was admitted to the ICU, he was maintained on IV antibiotics and seen by critical care and infectious diseases, patient was felt to have meningitis, he refused to undergo an LP however, cultures of the blood grew out Streptococcus pneumoniae, cultures of his ear drainage was performed and this grew out methicillin sensitive staph aureus and a gram-positive daniel. Patient's mentation improved and he was t ransferred to PCU for further care, he continued to improve on PCU. On 05/16/2020, patient was seen and examined: On examination he appeared in good health and spirits. Vital signs as documented. Skin warm and dry and without overt rashes. Neck without JVD, neck was supple, trachea midline, thyroid was normal. Lungs clear bilaterally, normal air movement was noted. Heart exam notable for regular rhythm, normal sounds and absence of murmurs, rubs or gallops. Abdomen unremarkable and without evidence of organomegaly, masses, or abdominal aortic enlargement. Bowel sounds are present, abdomen is not distended. Extremities nonedematous, no cyanosis was noted, no clubbing was noted. Neuro: Cranial nerves II through XII are grossly intact, no focal motor deficits were noted, sensation to light touch and pinprick intact, motor exam 5/5 throughout. Psych: Patient is alert and oriented x3, he does not appear anxious or depressed, he does not appear agitated. A midline catheter was inserted on 05/16/2020 for outpatient IV antibiotic administration, patient was discharged home with home health on that date in stable condition. Patient Problems: Active and Suspected Problems Infectious encephalopathy (Acute) Mastoiditis (Acute) Bacteremia (Acute) - Physical Exam Vitals/I&O's: Vital Signs Temp Pulse Resp BP Pulse Ox 98.2 F 62 16 137/81 H 98 05/16/20 14:52 05/16/20 14:52 05/16/20 14:52 05/16/20 14:52 05/16/20 14:52 Oxygen Flow Rate (L/min) 2 Oxygen Delivery Method Room Air Weight: 85.3 kg Body Mass Index (BMI) 25.1 Finger Stick Blood Glucose 98 Intake and Output for Last 24 Hours 05/16/20 05/17/20 05/18/20 23:59 23:59 23:59 Intake Total 200 / 200 Balance 200 / 200 Microbiology Past 72 Hours 05/12/20 10:25 Blood Culture (Wb) - Anticubital Right Blood Culture - Final No growth in 5 days. 05/12/20 09:45 Abs - Ear Gram Stain - Final 05/12/20 09:45 Abs - Ear Ear Culture - Final Staphylococcus aureus Gram positive daniel Coag Negative Staph 05/12/20 09:45 Abs - Ear Anaerobic Culture - Final No anaerobic bacteria isolated. Discharge Activity: Return to Normal Activity Weight Bearing Status: Full weight bearing Home Medications: Medications to take at Discharge Ceftriaxone 2 gm IV Q12 5 Days #10 vial 05/16/20 Lisinopril [Zestril] 20 mg PO DAILY #30 tab 05/16/20 Following Prescriptions Were Given to Patient: Ceftriaxone 2 gm IV Q12 5 Days #10 vial Prescription Printed Lisinopril [Zestril] 20 mg PO DAILY #30 tab Transmission Status: Received by [facility] Primary Care Physician: Martínez Peterson MD [Primary Care Provider] - Please Follow Up With: your primary care physician When: in two-three weeks Disposition: Home with Home Health Minutes spent on discharge:: 32 Patient Condition:: Stable Medical Necessity - Tobacco Use Smoking Status: Former smoker Meaningful Use Info Meaningful Use Diagnoses (Choose all that apply): None applicable Inpatient E&M: 03803 Disch Hosp
== END 2020-05-16 17:48 | disposition home or self-care (01) | DRG 871 ==
LOC: ED 20:24 → ICU 23:32 → PCU 05-13 09:05
PROVIDERS: Internal Medicine; Admitting Provider Hospitalist; Emergency Provider Emergency Medicine; PCP Family Medicine; Visit Provider Internal Medicine
DX: A40.3 Sepsis due to Streptococcus pneumoniae (principal); G00.1 Pneumococcal meningitis; G93.41 Metabolic encephalopathy; G93.49 Other encephalopathy; H70.002 Acute mastoiditis without complications, left ear; K92.0 Hematemesis; H83.02 Labyrinthitis, left ear; H66.92 Otitis media, unspecified, left ear; F10.20 Alcohol dependence, uncomplicated; N28.1 Cyst of kidney, acquired; E87.6 Hypokalemia; F32.9 Major depressive disorder, single episode, unspecified; B95.61 Methicillin susceptible Staphylococcus aureus infection as the cause of diseases classified elsewhere; Z86.16 Personal history of COVID-19; Z86.73 Personal history of transient ischemic attack (TIA), and cerebral infarction without residual deficits; Z87.891 Personal history of nicotine dependence
CPT/HCPCS: 36415; 51702; 70450; 70496; 70498; 70551; 71045; 74176; 80048; 80053; 80076; 80202; 80307; 81001; 82077; 82140; 82274; 83605; 83735; 84484; 85025; 85610; 85730; 87040; 87070; 87075; 87077; 87149; 87186; 87205; 87426; 93005; 93306; 94762; 97110; 97116; 97162; 97166; 97530; 97535; 97802; 99285; J7030; J7040; J7050; Q9967; A4216; J0696; J2405; J3490

== ENCOUNTER 2020-05-22 13:54 | Emergency (ER) | payer OTHER, SELFPAY ==
[2020-05-12 01:45] VITALS: BMI 25.1
[2020-05-22 13:56] VITALS: BP 156/85; PULSE 87; RESP 18; TEMP 36.6; O2SAT 97; BMI 25.8
--- NOTE | 2020-05-22 14:09 | ED.VISSUMM ---
- ER Visit Summary Date of Service: 05/22/20 Chief Complaint: [Requesting to have PICC line evaluated and removed] History of Present Illness: The patient is a 59 M [presents to the emergency department stating that he had a visiting nurse come in today to remove his PICC line however they were unable to flush it. Patient states that he has had IV antibiotics to treat bacterial meningitis that was diagnosed 2 weeks ago. The visiting nurse then discussed case with infectious disease doctor and they were referred to the emergency department. Patient denies any pain in his arm or swelling out of the ordinary. He denies any fevers or chills or sweats. Patient has history of hypertension, high cholesterol, and history of mastoiditis.] Physical Examination: [HEENT-PERRLA, EOMI. Cranial nerves II through XII grossly intact. TMs clear. Mucous membranes moist. No adenopathy. Cardiovascular-regular rate and rhythm without murmur or ectopy Lungs-clear to auscultation, chest wall stable without crepitus or subcu emphysema Abdomen-normoactive bowel sounds, soft, nontender, no rebound or rigidity, no peritoneal signs. Extremities-intact ?4, normal range of motion, normal pulses, atraumatic. Evaluation of the right upper arm reveals that he patient does have a PICC line in the upper arm. There is no ropes or cords palpated. No significant edema. No cellulitic changes noted. Patient does have some faint erythema and ecchymosis which appears chronic from insertion of the PICC line.] Test Results: [We are unable to obtain an ultrasound of the upper extremity today.] Emergency Department Course and Treatment: [I discussed case with infectious disease who was concern was about DVT of the extremity and was comfortable with having the PICC line removed today. He understands the patient will have to return tomorrow for an ultrasound to rule out DVT. We will cover him with 1 dose of Xarelto 20 mg p.o..] Treatment Plan: [Patient will return tomorrow for a venous Doppler of the right upper extremity.] Disposition: [Discharged home in stable condition] Impression: [PICC line removal Pain at PICC line site with concern for DVT] This note was generated with [employer] software. It may contain incorrect words, spelling, and punctuation that were not noted in review of the chart prior to signing ED Disposition - Plan for ED Patient: Referrals: NOT,DEFINED [NON-STAFF] -
--- NOTE | 2020-05-22 15:01 | ED.DEP ---
ED Disposition - Plan for ED Patient: Instructions: Peripherally Inserted Central Catheter (PICC) Referrals: NOT,DEFINED [NON-STAFF] - Additional Instructions: Return tomorrow to have ultrasound of arm to rule out blood clot
[2020-05-22] MEDS: Rivaroxaban 20 MG Tablet PO (15:41)
[2020-05-22 15:44] VITALS: BP 149/90; PULSE 67; RESP 16; O2SAT 99
--- NOTE | 2020-05-22 17:28 | NURSING ---
pulled midline per dr order. tip of midline was intact. pt tolerated procedure well. gauze dressing placed with opsite, pressure held.
== END 2020-05-22 15:46 | disposition home or self-care (01) ==
LOC: ED 14:40
PROVIDERS: Emergency Provider Emergency Medicine
DX: T82.848A Pain due to vascular prosthetic devices, implants and grafts, initial encounter (principal); I10 Essential (primary) hypertension
CPT/HCPCS: 99283; A4216

== ENCOUNTER → 2020-05-23 10:07 | Outpatient (CLI) | payer OTHER, SELFPAY ==
[2020-05-22 13:56] VITALS: BMI 25.8
--- NOTE | 2020-05-23 10:09 | VDUE_ITS ---
Reason For Study: PAIN Right Proximal Right jugular vein is spontaneous, widely patent, phasic, with no intraluminal echogenicity noted. Right subclavian vein is spontaneous, widely patent, phasic, with no intraluminal echogenicity noted. Right Lower Arm Right radial vein is compressible. Right ulnar vein is compressible. Right Arm Right axillary vein is spontaneous, patent, phasic, competent, compressible and demonstrates augmentation. Right brachial vein is compressible. Cephalic vein intraluminal echogenicity extends fromMid Cepahlic to distal Cephalic. s/p Mid-Line placement/removal. Right basilic vein is compressible. Interpretation Summary No evidence for acute deep venous thrombosis[right] upper extremity with patent and compressible cephalic and basilic veins. Superficial thrombophlebitis right cephalic vein mid to distally with comment of midline placement Ordering Physician: Sekou Frost Referring Physician: Sekou Frost Performed By: Adilene Crisostomo RDCS, RVT ?
== END ==
PROVIDERS: Referring Provider Emergency Medicine; Visit Provider Emergency Medicine
DX: M79.601 Pain in right arm (principal)
CPT/HCPCS: 93971

== ENCOUNTER 2020-05-23 10:51 | Emergency (ER) | payer OTHER, SELFPAY ==
[2020-05-22 13:56] VITALS: BMI 25.8
[2020-05-23 10:53] VITALS: BP 152/90; PULSE 77; RESP 16; TEMP 36.4; O2SAT 99; BMI 25.9
--- NOTE | 2020-05-23 11:22 | ED.DCSUM_ITS ---
- ER Visit Summary Date of Service: 05/23/20 Chief Complaint: Right arm SVT (superficial) post midline sent to the ER from the vascular lab History of Present Illness: The patient is a 59 M. Recent meningitis. Was on outpatient IV antibiotics had a midline catheter in his right arm. That was removed yesterday. Due to discomfort mild swelling at the site near the right bicep he had a noninvasive vascular ultrasound done today which showed a right bicep SVT. He has no primary care physician as of yet which he is working to get that resolved. He was sent to the ER. He denies other complaints. Physical Examination: Older male no acute distress vital signs stable afebrile. H EENT exam unremarkable. Neck nontender no meningismus. Lungs clear to auscultation. Heart regular rhythm no murmur. Rate about 77. Abdomen soft nontender normal bowel sounds no peritoneal signs. Patient is moving all 4 extremities. Neurovascular intact. Equal symmetrical engine research engineer strength. His right bicep are small bruising limited swelling. Limited tenderness. No cellulitis. He has normal flexion-extension of his right elbow and wrist normal engine research engineer strength of his right hand. Normal radial pulse. Normal cap refill. The forearm is nontender without edema. Neurologically is awake alert with no focal motor deficits. Test Results: Ultrasound of his right upper extremity per vascular labs showed a right upper extremity superficial vein thrombosis of the cephalic vein. I discussed this with the building energy retrofit technician and this is superficial not, I repeat not a DVT.. Emergency Department Course and Treatment: Patient was at diagnosed with a right upper arm SVT status post midline catheter for outpatient IV antibiotics. Treatment Plan: Patient be started on daily aspirin. Follow-up with his primary care physician to determine when they can stop the daily aspirin. Disposition: Discharge Impression: Acute right upper extremity superficial (cephalic) vein thrombosis status post recent midline catheter for IV antibiotics Status post meningitis This note was generated with [employer] dictation software. It may contain incorrect words, spelling, and punctuation that were not noted in review of the chart prior to signing ED Disposition - Plan for ED Patient: Disposition: Home or Assisted Living Instructions: ED Deep Vein Thrombosis (DVT) Prescriptions: Apixaban [Eliquis] 5 mg PO BID #74 tab Prescription Printed Referrals: Care Physician,No Primary [Primary Care Provider] - As soon as possible Additional Instructions: You will take the blood thinner Eliquis 10 mg twice a day for 1 week. Then you will switch over to 5 mg twice a day and be on that until your primary care physician decides to take you off of it. This is to treat the blood clot in your right arm and hopefully will not get any worse. If you see any signs of bleeding in your urine or in your stool you need to be evaluated. Any time you would hit your head while on blood thinner you would need to be evaluated. You will be on the blood thinner Eliquis.
--- NOTE | 2020-05-23 11:25 | ED.DEP ---
ED Disposition - Plan for ED Patient: Disposition: Home or Assisted Living Instructions: ED Thrombophlebitis, Superficial Prescriptions: Apixaban [Eliquis] 5 mg PO BID #74 tab Prescription Printed Referrals: Care Physician,No Primary [Primary Care Provider] - As soon as possible Additional Instructions: You have a superficial vein clot. Not a DVT. Therefore he can be treated just with daily aspirin. Follow-up with your doctor. Warm compresses to your right arm. This should progressively improve if not needs further evaluation.
[2020-05-23 12:13] VITALS: BP 158/109; PULSE 81; RESP 17; O2SAT 97
== END 2020-05-23 12:13 | disposition home or self-care (01) ==
LOC: ED 11:44
PROVIDERS: Emergency Provider Emergency Medicine
DX: I82.611 Acute embolism and thrombosis of superficial veins of right upper extremity (principal); I10 Essential (primary) hypertension; Z86.61 Personal history of infections of the central nervous system
CPT/HCPCS: 99282

== ENCOUNTER → 2020-06-22 09:48 | Outpatient (CLI) | payer OTHER, SELFPAY ==
[2020-05-23 10:53] VITALS: BMI 25.9
--- NOTE | 2020-06-22 09:51 | US_ITS ---
STUDY: RENAL ULTRASOUND - COMPLETE REASON FOR EXAM: Male, 60 years old. Elevated BUN/creatinine TECHNIQUE: Ultrasound evaluation of the kidneys was performed with real-time and static chandler-scale imaging. COMPARISON: CT from 05/11/2020 FINDINGS: RIGHT KIDNEY: Normal location of the right kidney, which is normal in size. The right kidney measures 18.8 x 6.4 x 7.0 cm. There is a normal cortex of the right kidney. The renal cortex measures 1.7 cm. No suspicious solid renal lesion, there are simple cysts, larger measures 9.6 cm. There are no right renal calculi. There is no right hydronephrosis. DISTAL RIGHT URETER: There is non-visualization of the distal right ureter. There is no demonstrated right ureterovesical junction calculus. There is a visualized right ureteral jet. LEFT KIDNEY: Normal location of the left kidney, which is normal in size. The left kidney measures 12.9 x 5.8 x 6.5 cm. There is a normal cortex of the left kidney. The renal cortex measures 1.7 cm. There is either a 2.3 x 2.5 x 2.1 cm mass in the lateral mid aspect of the left kidney or this may be a prominent column of routine. It is difficult to distinguish on ultrasound and a recent CT was not timed to arterial contrast run through the left kidney. There are no left renal calculi. There is no left hydronephrosis. DISTAL LEFT URETER: There is non-visualization of the distal left ureter. There is no demonstrated left ureterovesical junction calculus. There is a visualized left ureteral jet. AORTA: There is no elongation or tortuosity of the abdominal aorta. I.V.C.: The IVC is patent. BLADDER: The bladder sonographically normal Prostate is enlarged measuring 3.8 x 3.7 x 4.2 cm US/Kidney and Bladder IMPRESSION: Sonography suggests either a hypoechoic mass or prominent, but seen in the mid lateral left kidney measuring 2.3 x 2.5 x 2.[address] did not clearly demonstrate a mass year but the timing of the IV contrast was not optimal. Consider repeat ultrasound in 2-[address] scan of the abdomen and pelvis for further evaluation of the left kidney Large simple cysts in the right kidney, largest measures 9.6 cm. Enlarged prostate Electronically Signed: Garrick Gordon MD at 11:00 EDT , Service support ,
== END ==
PROVIDERS: PCP Family Medicine; Referring Provider Family Medicine; Visit Provider Family Medicine
DX: I72.2 Aneurysm of renal artery (principal)
CPT/HCPCS: 76770

== ENCOUNTER → 2020-06-28 08:51 | Outpatient (CLI) | payer OTHER, SELFPAY ==
--- NOTE | 2020-06-28 08:53 | RDU_ITS ---
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 PSV/EDV. Right renal artery proximal Left renal artery proximal PSV/EDV 192.3/64.3 PSV/EDV. 144.3/53.7 . Right renal artery mid 218.5/72 Left renal artery mid 166.9/69.9 PSV/EDV. PSV/EDV . Right renal artery distal 128.9/48.2 Left renal artery distal 157.3/64.6 PSV/EDV. PSV/EDV. Unable to assess for aneurysm. Left RAR 1.84. Right RAR 2.41. Left Renal Parenchyma Right Renal Parenchyma Left upper pole medulla 35.1/16.1 Upper Pole Medula 28.6/11.6 PSV/EDV. PSV/EDV . Right upper pole medulla EDR 0.41 . Left upper pole medulla EDR 0.46 . Right upper pole medulla R.I. 0.59 . Left upper pole medulla R.I. 0.54 . Upper [place] Cortx 17.8/7.4 PSV/EDV. UP Cortex 17.7/9.5 PSV/EDV. Right upper pole cortex EDR 0.41 . Left upper pole cortex EDR 0.53 . Right upper pole cortex R.I. 0.59 . Left upper pole cortex R.I. 0.47 . Right lower Pole medulla 35.2/17.3 Left lower Pole medulla 30.9/14.4 PSV/EDV . PSV/EDV . Right lower pole medulla EDR 0.49 . Left lower pole medulla EDR 0.47 . Right lower pole medulla R.I. 0.51 . Left lower pole medulla R.I. 0.53 . Lower Pole Cortex 19.7/9.3 PSV/EDV. Lower Pole Cortx 20.8/9.8 PSV/EDV. Right lower pole cortex EDR 0.47 . Left lower pole cortex EDR 0.47 . Right lower pole cortex R.I. 0.53 . Left lower pole cortex R.I. 0.53 . Right Renal Hilar Left Renal Hilar Right Hilar avg 49.5/21.2 PSV/EDV. LT Hilar avg 39.5/17 PSV/EDV . Right hilar acceleration time 60 Left hilar acceleration time 80 m/sec. m/sec. Right Renal Dimensions Left Renal Dimensions Right kidney size 17.81 cm . Left kidney size 12.97 cm . Right cortical dimension 2.05 cm . Left cortical dimension 2.17 cm . Large anechoic nonvascularized structure noted on the lower pole measuring 8.61 x 9.84 cm. Anechoic nonvascularized structure noted on the upper pole measuring 3.48 x 3.77 cm. Aorta Proximal abdominal aorta 1.71 x 1.71 cm . Proximal abdominal aorta peak systolic velocity is 90.6 cm/sec . Distal abdominal aorta 1.52 x 1.513 cm . Distal abdominal aorta peak systolic velocity is 108.9 cm/sec . VL/Renal Artery Duplex Ultrasound Interpretation Summary 1.71 x 1.71 cm abdominal aorta with just slightly elevated velocities in the di stal abdominal aorta at 108.9 cm/s. Velocities are maximally elevated within the right mid renal artery at 218 cm s econd peak systolic flow approaching 60% stenosis but not meeting criteria secondary to the renal a rtery to aortic ratio. Right kidney size 17.81 cm. Large anechoic lower pole structure measuring 8.6 x 9.8 cm. Large anechoic nonvascular upper pole structure measuring 3.48 x 3.77 cm Assessment for possible renal artery aneurysm not achieved on this examination. Less than 60% stenosis left renal artery Left renal size maintained at normal at 12.97 cm Ordering Physician: Nathen Collier Referring Physician: Nathen Collier Performed By: Key Wilkinson RVT and Student
== END ==
PROVIDERS: PCP Family Medicine; Visit Provider Family Medicine
DX: I72.2 Aneurysm of renal artery (principal)
CPT/HCPCS: 93975

== ENCOUNTER → 2020-07-14 07:21 | Outpatient (CLI) | payer OTHER, SELFPAY ==
--- NOTE | 2020-07-14 07:23 | CT_ITS ---
STUDY: CT ABDOMEN AND PELVIS WITH CONTRAST REASON FOR EXAM: Male, 60 years old. Right kidney mass RADIATION DOSAGE (If Supplied By Facility): CTDIvol = ( 18.40 ) mGy, DLP = ( 2268.30 ) mGycm TECHNIQUE: Transaxial images were obtained from the dome of the diaphragm to the symphysis pubis without oral contrast. IV 100mL Isovue-370 was administered. Sagittal and coronal images were reconstructed. Individualized dose optimization techniques were used for this CT. COMPARISON: Comparison is made with prior examination of 05/11/2020. FINDINGS: The visualized lung bases are unremarkable. The visualized portions of the heart are within normal limits. Normal liver. Normal gallbladder and extrahepatic biliary system. Normal spleen. Normal pancreas. Normal bilateral adrenal glands. There is a stable 4.4 cm x 3.5 cm cyst in the upper posterior aspect of the right kidney. There is also evidence of a large 9.7 cm x 10.5 cm cyst in the lower pole of the right kidney. There is a 3.3 cm x 2.5 cm partially enhancing density in the region of the right renal hilum. 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 There is evidence of a calcific rim around this nodular density. Normal left kidney. Normal visualized stomach. Normal small intestine. There are scattered colonic diverticula consistent with diverticulosis. There is non-visualization of the appendix. Normal abdominal aorta. Normal inferior vena cava. Normal retroperitoneum. Mild degree of diffuse bladder wall thickening. The prostate measures 3.9 cm x 5.3 cm. Normal abdominal wall. There are mild degenerative changes of the visualized lumbar spine. CT/Abdomen/Pelvis WITH Contrast IMPRESSION: Stable right renal cysts. 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 This measures 3.3 cm x 2.5 cm. Electronically Signed: Jero Reyna MD at 9:03 EDT , Service support ,
== END ==
PROVIDERS: PCP Family Medicine; Referring Provider Family Medicine; Visit Provider Family Medicine
DX: N28.89 Other specified disorders of kidney and ureter (principal)
CPT/HCPCS: 74177; Q9967

== ENCOUNTER 2023-07-27 09:40 | Emergency (ER) | payer MEDICARE, SELFPAY ==
[2023-07-27 09:43] VITALS: BP 184/117; PULSE 72; RESP 20; TEMP 36.2; O2SAT 99
--- NOTE | 2023-07-27 09:55 | ED.RN ---
pt reports sharp pains through right side of face has been going on fro 3 months and getting progressively worse. muscle weakness to right face. smile remains symmetrical.
--- NOTE | 2023-07-27 10:14 | CT_ITS ---
STUDY: CTA HEAD AND NECK WITH CONTRAST REASON FOR EXAM: Male, 63 years old. Right facial pain/headache RADIATION DOSAGE (If Supplied By Facility): CTDIvol = ( 36.81 ) mGy, DLP = ( 1643.68 ) mGycm TECHNIQUE: CT angiography was performed with a multi-detector CT scanner. Data acquisition was obtained from the skull base through the vertex following intravenous administration of IV 100mL Isovue-300. MIP images were reconstructed from the axial data set. Post-processing of the angiographic images was performed, with multiplanar reformation and 3D reconstruction. Individualized dose optimization techniques were used for this CT. COMPARISON: No relevant priors. FINDINGS: Normal bilateral petrous carotid arteries. Normal right cavernous carotid artery with a normal supraclinoid bifurcation. Normal left cavernous carotid artery with a normal supraclinoid bifurcation. 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 Normal left A1 segment of the anterior cerebral artery. Normal intact anterior communicating artery (ACOM). Normal bilateral A2 segments of the anterior cerebral arteries. Normal right M1 and M2 segments of the middle cerebral arteries, with a normal M1 bifurcation. Normal left M1 and M2 segments of the middle cerebral arteries, with a normal M1 bifurcation. origin of the right HEEL BUFFER off the right internal carotid artery rather than widely patent right posterior communicating artery (PCOM). origin of the left HEEL BUFFER off the left internal carotid artery rather than a widely patent left posterior communicating artery (PCOM). Normal bilateral vertebral arteries. The left vertebral is dominant. Normal basilar artery with a normal basilar bifurcation. The visualized bilateral superior cerebellar (SCA) arteries are normal. Developmentally absent bilateral P1 segments. Normal bilateral P2 and visualized P3 segments of the posterior cerebral arteries. There is no demonstrated aneurysm of the [place]. There is no demonstrated abnormality of the visualized brain. AORTIC ARCH: Normal visualized aortic arch. Normal origins of the brachiocephalic, left common carotid, and left subclavian arteries. RIGHT CAROTID ARTERIES: Normal right common carotid artery (CCA). Normal right carotid bulb. Normal origin of the right internal carotid (ICA) artery without a hemodynamically significant stenosis. Normal visualized cervical portion of the right internal carotid artery. Normal origin of the right external carotid artery (ECA). LEFT CAROTID ARTERIES: Normal left common carotid artery (CCA). Normal left carotid bulb. Normal origin of the left internal carotid (ICA) artery without a hemodynamically significant stenosis. Normal visualized cervical portion of the left internal carotid artery. Normal origin of the left external carotid artery (ECA). VERTEBRAL ARTERIES: Normal bilateral vertebral arteries. The left vertebral artery is dominant. CT/CTA Head AND Neck W/ Contrast IMPRESSION: 1. Normal CTA Head and neck with contrast. 2. Moderate mucosal thickening in the right maxillary sinus due to sinusitis. 3. Mucosal edema of both temporal mastoid air cells, bilateral mastoid antra and middle ear spaces suggestive of bilateral otitis media and bilateral mastoiditis. Otoscopy will be helpful. 4. Benign reactive nodes in the suprahyoid neck. 5. No CT evidence of obstructing mass in the nasopharynx or obstruction lesion of the bilateral eustachian tubes. Electronically Signed: Troy Abdi MD at 12:02 EDT ,
--- NOTE | 2023-07-27 10:15 | EDS_ITS ---
HPI History of Present Illness Chief Complaint: Other, Pain/Inj Informant: patient Narrative Narrative: 63-year-old male presenting to the emergency room with a chief complaint of right facial pain. Patient states that he does not normally go to doctors. He does not recall when the last time he saw a primary care doctor. He states he currently takes no medications has no allergies. Over the past 3 months he has been experiencing intermittent right facial pain. He states it is mostly of the right forehead. He notes significant sensitivity along the right maxillary sinus down onto his jawline. He notes that when the wind blows or water hits it is extremely painful. He notes that if he opens his jaw occasionally it will hurt. It has been intermittent however for the past 3 nights he has not been getting much sleep because it is increased in pain. He denies any rashes in this area. He denies any visual changes. He does note occasionally his eye will water. He denies any facial droop. No hearing loss. No headaches except when the pain is present. He denies arm or leg symptoms. PFSH PFSH Allergy/AdvReac Type Severity Reaction Status Date / Time No Known Allergies Allergy Verified 07/27/23 09:48 Social History Smoking Status: Unknown if ever smoked ROS ROS ED Constitutional Constitutional ED: Denies chills, fever(s) or weight loss Eyes Eyes: Denies blurry vision, change in vision or diplopia ENT ENT ED: Reports other Details: Right facial pain see HPI ; Denies ear pain, rhinorrhea or sore throat Cardiovascular Cardiovascular: Denies chest pain, orthopnea, palpitations or racing heartbeat Respiratory/Chest Respiratory/Chest: Denies cough, dyspnea or orthopnea Gastrointestinal Gastrointestinal: Denies abdominal pain, diarrhea, nausea or vomiting Genitourinary Genitourinary ED: Denies dysuria, hematuria or urinary frequency Musculoskeletal Musculoskeletal: Denies arthralgias or myalgias Integumentary Denies abscess or rash Neurologic Neurologic: Denies headache(s) or weakness Psychiatric Psychiatric: Denies anxiety, depression, suicidal ideation or suicidal thoughts Endocrine Endocrinology: Denies polydipsia, polyphagia or polyuria Allergic/Immunologic Allergic/Immunologic ED: Denies mouth swelling, tongue swelling or urticaria EXAM Physical Exam Narrative Exam Narrative: Well-appearing 63-year-old male sitting in the bed. He will occasionally grab his right forehead and right maxillary face and wince in pain. Const Vital Signs: 07/27/23 09:43 07/27/23 09:50 07/27/23 11:42 Temperature 97.2 F L Temperature Source Temporal Pulse Rate 72 59 L Respiratory Rate 20 H 18 Respiratory Pattern Normal Blood Pressure 184/117 H 180/106 H Blood Pressure Mean 139 130 Pulse Ox 99 98 Oxygen Delivery Method Room Air Room Air Positive well nourished and well developed General Appearance ED: well developed HEENT Reports normocephalic, head/scalp atraumatic and moist mucous membranes HEENT Narrative: I do not appreciate any lesions. No palpable masses. The ear canal and tympanic membranes appear normal. Patient notes sensitivity to light touch of the right maxillary facial and right superior periorbital region. Patient winces in pain when I have him open his mouth. Eyes PERRL and EOMs intact bilaterally Neck no lymphadenopathy, supple and no JVD Resp normal respiratory effort and clear to auscultation bilaterally Cardio regular rate, regular rhythm and no murmurs GI normal to inspection, nondistended, normoactive bowel sounds and non-tender Palpation: soft Back/Spine no CVA tenderness and normal ROM Extremity normal to inspection General Extremety ED: Negative for edema General Extremity: Negative for edema Neuro oriented x3 and CN's II-XII intact bilaterally Sensorium / Orientation: alert Motor Exam: strength 5/5 throughout Psych mental status grossly normal Mood & Affect: Negative for depressed or tearful Skin no rashes or lesions noted and no wounds MDM MDM MDM Narrative Medical decision making narrative: Differential diagnosis includes but not limited to brain mass aneurysm dissection infectious processes like sinusitis, trigeminal neuralgia, shingles, Rivera's palsy, dental issues. Basic blood works obtained white count 7.2 hemoglobin 16.5. Magnesium 2.2 glucose of 102. CTA of the head and neck was obtained. This is negative for dissection or aneurysm or mass. There was concerning findings possibly representing sinusitis of the right maxillary sinus. He has had mastoiditis in the past. His clinical exam however does not show evidence of mastoiditis (tenderness overlying erythema no otitis externa otitis media is not present). I spoke with the patient I think this still could be trigeminal neuralgia. Can start him on some low-dose carbamazepine as well as some [place] for pain. He will need to establish primary care or establishment with neurology. I can provide him with names to help him or he can call a [facility] of his choosing. I will also write him for Augmentin to see if that may help with the findings of the head CT which could be referring pain though I think this is unlikely. History & Record Review Discussion w/independent historian: Patient Lab Data Attestation: I reviewed the patient's lab results. Labs: Laboratory Results - last 24 hr 07/27/23 09:50 WBC 7.2 RBC 5.40 Hgb 16.5 Hct 50.5 MCV 93.5 MCH 30.6 MCHC 32.7 RDW Std Deviation 43.1 RDW Coeff of Esteban 12.6 Plt Count 335 MPV 9.2 Immature Gran % (Auto) 0.400 Neut % (Auto) 49.5 Lymph % (Auto) 36.7 Wise % (Auto) 10.1 H Eos % (Auto) 2.2 Baso % (Auto) 1.1 H Absolute Neuts (auto) 3.6 Absolute Lymphs (auto) 2.64 Nucleated RBC % 0 Sodium 139 Potassium 3.5 Chloride 106 Carbon Dioxide 29.0 Anion Gap 4 L BUN 9 Creatinine 0.77 Est GFR (MDRD) Af Amer 130 Est GFR (MDRD) Non-Af 107 BUN/Creatinine Ratio 11.7 Glucose 102 Calcium 8.4 L Magnesium 2.2 Radiography Diagnostic Testing: Clinical Impression(s) from Imaging Studies Head/Neck CTA 07/27/23 10:14 IMPRESSION: 1. Normal CTA Head and neck with contrast. 2. Moderate mucosal thickening in the right maxillary sinus due to sinusitis. 3. Mucosal edema of both temporal mastoid air cells, bilateral mastoid antra and middle ear spaces suggestive of bilateral otitis media and bilateral mastoiditis. Otoscopy will be helpful. 4. Benign reactive nodes in the suprahyoid neck. 5. No CT evidence of obstructing mass in the nasopharynx or obstruction lesion of the bilateral eustachian tubes. Electronically Signed: Troy Abdi MD at 12:02 EDT , Discharge Plan Triage Chief Complaint: Other, Pain/Inj ED Provider: Omar Wang Dx/Rx/DC Orders Clinical Impression: Acute facial pain, Trigeminal neuralgia Primary Care Provider: Nathen Collier Referrals: Nathen Collier DO [Primary Care Provider] - Print Language: Swedish
[2023-07-27] MEDS: Ketorolac 15 MG/ML Vial IV (10:19)
[2023-07-27 10:41] LABS: Absolute Lymphocyte Count 2.64 X10^3/uL (0.83-4.51); Absolute Neutrophil Count 3.6 X10^3/uL (2.0-7.7); Basophil# 0.08 X10^3/uL; Basophil% 1.1 % (0-1); Eosinophil# 0.16 X10^3/uL; Eosinophils% 2.2 % (0-5); Hematocrit 50.5 % (40-54); Hemoglobin 16.5 g/dL (13.0-16.5); Lymphocyte # 2.64 X10^3/ul (0.83-4.51); Lymphocyte % 36.7 % (19-41); Mean Corp Hgb Conc 32.7 g/dL (32-36); Mean Corpuscular Hgb 30.6 pg (27.0-32.0); Mean Corpuscular Volume 93.5 fL (80-94); Mean Platelet Vol. 9.2 fl (6.2-12.0); Monocyte# 0.73 X10^3/uL; Monocyte% 10.1 % (0-10); NRBC Flagged by Analyzer 0 % (0-5); Neutrophil # 3.56 X10^3/uL (2.7-7.7); Neutrophil % 49.5 % (47-70); Platelet Count 335 K/mm3 (150-450); RBC Distribution Width CV 12.6 % (11.6-14.6); RBC Distribution Width SD 43.1 fl (35.1-43.9); White Blood Count 7.2 K/mm3 (4.4-11.0)
[2023-07-27 10:55] LABS: Anion Gap 4 (5-15); BUN 9 mg/dL (7-18); BUN/Creat Ratio 11.7 RATIO (10-20); Calcium,Total 8.4 mg/dL (8.5-10.1); Chloride 106 mmol/L (98-107); Creatinine, Serum 0.77 mg/dL (0.70-1.30); EST Glomerular Filtration Rate 107 mL/min (>60); Est Glom Filt Rate - Afr Amer 130 mL/min (>60); Glucose 102 mg/dL (74-106); Magnesium 2.2 mg/dL (1.6-2.6); Potassium 3.5 mmol/L (3.5-5.1); Sodium Level 139 mmol/L (136-145)
[2023-07-27 11:42] VITALS: BP 180/106; PULSE 59; RESP 18; O2SAT 98
[2023-07-27 12:40] VITALS: BP 174/102; PULSE 77; RESP 16; TEMP 36.7; O2SAT 98
== END 2023-07-27 12:41 | disposition home or self-care (01) ==
PROVIDERS: Emergency Provider Emergency Medicine; PCP Family Medicine; Visit Provider Emergency Medicine
DX: G50.0 Trigeminal neuralgia (principal); R51.9 Headache, unspecified
CPT/HCPCS: 70496; 70498; 80048; 83735; 85025; 96374; 99282; Q9967; A4216

== ENCOUNTER → 2023-09-06 | Outpatient (CLI) | payer MEDICARE, SELFPAY ==
[2023-09-06 12:29] LABS: Anion Gap 5 (5-15); BUN 11 mg/dL (7-18); BUN/Creat Ratio 13.9 RATIO (10-20); Calcium,Total 8.5 mg/dL (8.5-10.1); Chloride 108 mmol/L (98-107); Cholesterol 150 mg/dL (200); Creatinine, Serum 0.79 mg/dL (0.70-1.30); EST Glomerular Filtration Rate 104 mL/min (>60); Est Glom Filt Rate - Afr Amer 126 mL/min (>60); Glucose 77 mg/dL (74-106); High Density Lipoprotein 43 mg/dL; PSA,Total - Annual Screen 4.56 ng/mL (0.00-4.00); Potassium 3.9 mmol/L (3.5-5.1); Sodium Level 139 mmol/L (136-145); Triglycerides 111 mg/dL; Very Low Density Lipoprotein 22 mg/dL (5-40)
== END | disposition home or self-care (01) ==
LOC: BFHLAB 08:40
PROVIDERS: PCP Family Medicine; Referring Provider Family Medicine; Visit Provider Family Medicine
DX: Z12.5 Encounter for screening for malignant neoplasm of prostate (principal); I10 Essential (primary) hypertension
CPT/HCPCS: 36415; 80048; 80061; 84153; G0103